=== PATIENT | male | born 1990 | race Caucasian/White ===

== ENCOUNTER 2018-03-17 05:24 | Emergency (ER) | payer BC ==
--- NOTE | 2018-03-17 06:30 | ER ---
Nurse's Notes [facility] Name: Salvador Fuchs Age: 28 yrs Sex: Male : 1990 Arrival Date: 03/17/2018 Time: 05:29 Bed 6 Private MD: Mary Belcher K Diagnosis: Low back pain Presentation: 03/17 05:30 Presenting complaint: Patient states: that since 2300 last night his lower back has fc been trying to "lock" up. Hx of back problems. Transition of care: patient was not received from another setting of care. Onset of symptoms was March 16, 2018 at 23:00. Risk Assessment: Do you want to hurt yourself or someone else? Patient reports no desire to harm self or others. Initial Sepsis Screen: Does the patient meet any 2 criteria? No. Patient's initial sepsis screen is negative. Does the patient have a suspected source of infection? No. Patient's initial sepsis screen is negative. Care prior to arrival: None. 05:30 Method Of Arrival: Ambulatory 05:30 Acuity: KATHLEEN 5 Triage Assessment: 05:46 General: Appears uncomfortable, obese, Behavior is calm, cooperative, appropriate for age. Pain: Complains of pain in low back area Pain currently is 5 out of 10 on a pain scale. Quality of pain is described as aching, throbbing, Pain began 7 hrs ago Is continuous, Aggravated by increased activity, repositioning. EENT: No deficits noted. Neuro: Level of Consciousness is awake, alert, obeys commands, Oriented to person, place, time, situation, Denies paresthesias numbness. Cardiovascular: No deficits noted. Respiratory: No deficits noted. GI: No deficits noted. : No deficits noted. Derm: Skin is pink, warm \\T\\ dry. Musculoskeletal: Circulation, motion, and sensation intact. Capillary refill < 3 seconds, Range of motion: intact in all extremities. Historical: - Allergies: 05:46 Iodine; fc - Home Meds: 05:46 None [Active]; fc - PMHx: 05:46 compound fracture to L1; Back pain; fc - PSHx: 05:46 Cholecystectomy; Appendectomy; fc - Immunization history:: Last tetanus immunization: up to date. - Social history:: Smoking status: Patient uses tobacco products, smokes one pack cigarettes per day. - Ebola Screening: : Patient negative for fever greater than or equal to 101.5 degrees Fahrenheit, and additional compatible Ebola Virus Disease symptoms Patient denies exposure to infectious person Patient denies travel to an Ebola-affected area in the 21 days before illness onset. Screenin:30 Abuse screen: Denies threats or abuse. Nutritional screening: No deficits noted. fc Tuberculosis screening: No symptoms or risk factors identified. Fall Risk None identified. Assessment: 05:55 Reassessment: No changes from previously documented assessment. Patient and/or family fc updated on plan of care and expected duration. Pain level reassessed. Patient is alert, oriented x 3, equal unlabored respirations, skin warm/dry/pink. see triage assessment. Neuro: Level of Consciousness is awake, alert, obeys commands, Oriented to person, place, time, situation, Central Office Maintainer are equal bilaterally Moves all extremities. Full function Gait is steady, Speech is normal, Facial symmetry appears normal, Denies weakness numbness. 06:15 Reassessment: No changes from previously documented assessment. Patient and/or family fc updated on plan of care and expected duration. Pain level reassessed. Patient is alert, oriented x 3, equal unlabored respirations, skin warm/dry/pink. Earline COMMERCIAL FRONT LOAD OPERATOR in to see and examine pt. Vital Signs: 05:30 BP 115 / 60; Pulse 61; Resp 18; Temp 98.6(O); Pulse Ox 99% on R/A; Weight 122.47 kg fc (R); Height 5 ft. 9 in. (175.26 cm) (R); Pain 5/10; 06:30 BP 115 / 62; Pulse 67; Resp 18; Pulse Ox 98% on R/A; ak1 06:38 BP 110 / 66; Pulse 61; Resp 18; Temp 98.6(O); Pulse Ox 98% on R/A; Pain 5/10; fc 05:30 Body Mass Index 39.87 (122.47 kg, 175.26 cm) ED Course: 05:29 Patient arrived in ED. es 05:29 Mary Belcher MD is Private Physician. es 05:30 Arm band placed on Patient placed in an exam room, on a stretcher. 05:30 Patient has correct armband on for positive identification. Bed in low position. Call fc light in reach. 05:30 No provider procedures requiring assistance completed. 05:44 Triage completed. fc 06:16 Earline Hart FNP-C is [facility]. snw 06:17 Germain Bentley MD is Attending Physician. snw 06:29 Mary Belcher MD is Referral Physician. snw 06:40 Patient did not have IV access during this emergency room visit. fc Administered Medications: No medications were administered Outcome: 06:29 Discharge ordered by . snw 06:40 Discharged to home ambulatory, with significant other. fc 06:40 Condition: good 06:40 Discharge instructions given to patient, significant other, Instructed on discharge instructions, follow up and referral plans. no drinking with medication, no driving heavy equipment, medication usage, Demonstrated understanding of instructions, follow-up care, medications, Prescriptions given X 2. 06:40 Patient left the ED. Signatures: Earline Hart FNP-C POPULATION HEALTH COACH-Csnw Anu Magallon Felicia RN RN Cha Higuera RN RN ak1
--- NOTE | 2018-03-17 06:30 | EDPHYS ---
Physician Documentation [facility] Name: Salvador Fuchs Age: 28 yrs Sex: Male : 1990 Arrival Date: 03/17/2018 Time: 05:29 Bed 6 Private MD: Mary Belcher K ED Physician Germain Bentley HPI: 03/17 06:36 This 28 yrs old Male presents to ER via Ambulatory with complaints of Back snw Pain. 06:36 The patient presents with pain that is chronic, with no known mechanism of injury. The snw symptoms are located in the low back. Onset: The symptoms/episode began/occurred this morning. The pain does not radiate. Associated signs and symptoms: Pertinent positives: none. The problem was sustained from unknown cause. Severity of symptoms: At their worst the symptoms were moderate. The patient has experienced similar episodes in the past. It is unknown whether or not the patient has recently seen a physician. states he feels as though his back is 'going to lock up'. Historical: - Allergies: 05:46 Iodine; fc - Home Meds: 05:46 None [Active]; fc - PMHx: 05:46 compound fracture to L1; Back pain; fc - PSHx: 05:46 Cholecystectomy; Appendectomy; fc - Immunization history:: Last tetanus immunization: up to date. - Social history:: Smoking status: Patient uses tobacco products, smokes one pack cigarettes per day. - Ebola Screening: : Patient negative for fever greater than or equal to 101.5 degrees Fahrenheit, and additional compatible Ebola Virus Disease symptoms Patient denies exposure to infectious person Patient denies travel to an Ebola-affected area in the 21 days before illness onset. ROS: 06:35 Constitutional: Negative for fever, chills, and weight loss, Eyes: Negative for injury, snw pain, redness, and discharge, ENT: Negative for injury, pain, and discharge, Neck: Negative for injury, pain, and swelling, Cardiovascular: Negative for chest pain, palpitations, and edema, Respiratory: Negative for shortness of breath, cough, wheezing, and pleuritic chest pain, Abdomen/GI: Negative for abdominal pain, nausea, vomiting, diarrhea, and constipation, : Negative for injury, bleeding, discharge, and swelling, MS/Extremity: Negative for injury and deformity, Skin: Negative for injury, rash, and discoloration, Neuro: Negative for headache, weakness, numbness, tingling, and seizure. 06:35 Back: Positive for pain with movement. Exam: 06:33 Constitutional: This is a well developed, well nourished patient who is awake, alert, snw and in no acute distress. Head/Face: Normocephalic, atraumatic. Eyes: Pupils equal round and reactive to light, extra-ocular motions intact. Lids and lashes normal. Conjunctiva and sclera are non-icteric and not injected. Cornea within normal limits. Periorbital areas with no swelling, redness, or edema. ENT: Nares patent. No nasal discharge, no septal abnormalities noted. Tympanic membranes are normal and external auditory canals are clear. Oropharynx with no redness, swelling, or masses, exudates, or evidence of obstruction, uvula midline. Mucous membranes moist. Neck: Trachea midline, no thyromegaly or masses palpated, and no cervical lymphadenopathy. Supple, full range of motion without nuchal rigidity, or vertebral point tenderness. No Meningismus. Chest/axilla: Normal chest wall appearance and motion. Nontender with no deformity. No lesions are appreciated. Cardiovascular: Regular rate and rhythm with a normal S1 and S2. No gallops, murmurs, or rubs. Normal PMI, no JVD. No pulse deficits. Respiratory: Lungs have equal breath sounds bilaterally, clear to auscultation and percussion. No rales, rhonchi or wheezes noted. No increased work of breathing, no retractions or nasal flaring. Abdomen/GI: Soft, non-tender, with normal bowel sounds. No distension or tympany. No guarding or rebound. No evidence of tenderness throughout. Back: No spinal tenderness. No costovertebral tenderness. Full range of motion. Skin: Warm, dry with normal turgor. Normal color with no rashes, no lesions, and no evidence of cellulitis. Neuro: Awake and alert, GCS 15, oriented to person, place, time, and situation. Cranial nerves II-XII grossly intact. Motor strength 5/5 in all extremities. Sensory grossly intact. Cerebellar exam normal. Normal gait. Psych: Awake, alert, with orientation to person, place and time. Behavior, mood, and affect are within normal limits. 06:33 Musculoskeletal/extremity: Extremities: grossly normal except: noted in the low back area: decreased ROM, pain, ROM: Circulation is intact in all extremities. Sensation intact. 06:33 Neuro: Orientation: is normal, Mentation: is normal, Memory: is normal, Gait: is steady, at a normal pace. Vital Signs: 05:30 BP 115 / 60; Pulse 61; Resp 18; Temp 98.6(O); Pulse Ox 99% on R/A; Weight 122.47 kg fc (R); Height 5 ft. 9 in. (175.26 cm) (R); Pain 5/10; 06:30 BP 115 / 62; Pulse 67; Resp 18; Pulse Ox 98% on R/A; ak1 06:38 BP 110 / 66; Pulse 61; Resp 18; Temp 98.6(O); Pulse Ox 98% on R/A; Pain 5/10; fc 05:30 Body Mass Index 39.87 (122.47 kg, 175.26 cm) fc MDM: 06:17 Patient medically screened. snw 06:35 Data reviewed: vital signs, nurses notes. Data interpreted: Pulse oximetry: on room air snw is 98 %. Interpretation: normal. Counseling: I had a detailed discussion with the patient and/or guardian regarding: the historical points, exam findings, and any diagnostic results supporting the discharge/admit diagnosis, the presence of at least one elevated blood pressure reading (>120/80) during this emergency department visit, the need for outpatient follow up, for definitive care, to return to the emergency department if symptoms worsen or persist or if there are any questions or concerns that arise at home. Administered Medications: No medications were administered Disposition: 06:53 Co-signature as Attending Physician, Germain Bentley MD. rn Disposition: 03/17/18 06:29 Discharged to Home. Impression: Low back pain. - Condition is Stable. - Discharge Instructions: Back Pain, Adult, Chronic Back Pain, Musculoskeletal Pain, Back Injury Prevention, [id number], Back Exercises, Nife-ni-Yizg, Cryotherapy, Heat Therapy. - Prescriptions for methocarbamol 750 mg Oral tablet - take 1 tablet by ORAL route 4 times per day; 40 tablet. Diclofenac Sodium 75 mg Oral Tablet Sustained Release - take 1 tablet by ORAL route 2 times per day; 30 tablet. - Work release form, Medication Reconciliation Form, Thank You Letter, Antibiotic Education, Prescription Opioid Use form. - Follow up: Mary Belcher MD; When: 2 - 3 days; Reason: Recheck today's complaints, Continuance of care, Re-evaluation by your physician. Follow up: Emergency Department; When: As needed; Reason: Worsening of condition. Signatures: Earline Hart, FOOD AND BEVERAGE OUTLETS MANAGER-C FOOD AND BEVERAGE OUTLETS MANAGER-Csnw Ashley Adam RN RN fc Germain Bentley MD MD pattern maker: (The following items were deleted from the chart) 06:40 06:29 03/17/2018 06:29 Discharged to Home. Impression: Low back pain. Condition is fc Stable. Forms are Medication Reconciliation Form, Thank You Letter, Antibiotic Education, Prescription Opioid Use. Follow up: Mary Belcher; When: 2 - 3 days; Reason: Recheck today's complaints, Continuance of care, Re-evaluation by your physician. Follow up: Emergency Department; When: As needed; Reason: Worsening of condition. snw
== END 2018-03-17 06:40 | disposition home or self-care (01) ==
LOC: ER 05:24
DX: M54.5 Low back pain (principal); F17.210 Nicotine dependence, cigarettes, uncomplicated; Z91.048 Other nonmedicinal substance allergy status
CPT/HCPCS: 99282

== ENCOUNTER 2018-04-30 16:25 | Emergency (ER) | payer BC ==
[2018-04-30 17:58] LABS: Urine Bacteria <20 /HPF (NONE SEEN); Urine Culture Reflex Order NOT NEEDED; Urine RBC <5 /HPF (NONE SEEN)
--- NOTE | 2018-04-30 18:05 | RAD REPORT ---
EXAM DESCRIPTION: CT - Stone Protocol - 04/30/2018 5:54 pm CLINICAL HISTORY: Flank pain. FLANK PAIN COMPARISON: No comparisons TECHNIQUE: Axial images were obtained without oral or IV contrast. Lack of contrast limits solid org an and vascular assessment. The [id number] spans the entirety of the system partially obscuring uppermost abdomen and lung bases. Coronal reformatted images were obtained and reviewed. All CT scans are performed using dose optimization technique as appropriate and may include automated exposure control or mA/KV adjustment according to patient size. FINDINGS: The lower lung jones are clear. Imaged portions of the liver and spleen show no suspicious findings on non-contrast imaging. The panc reas and adrenal glands are normal. No pathologic lymphadenopathy in the abdomen or pelvis. No urinary tract stones or obstructive uropathy. No bowel obstruction, free air, free fluid or abscess. The appendix is not identified as a discrete s tructure, however, no secondary findings of appendicitis are identified. An area of an ovoid inflamed fat in right lower quadrant measuring 15 mm is most compatible with mild epiploic appendagitis. No significant bony abnormality. Old L1 anterior wedge deformity. IMPRESSION: No urinary tract stones or obstructive uropathy. Right lower quadrant epiploic appendagitis.
--- NOTE | 2018-04-30 18:13 | ER ---
Nurse's Notes [facility] Name: Salvador Fuchs Age: 28 yrs Sex: Male : 1990 Arrival Date: 04/30/2018 Time: 16:31 Bed 6 Private MD: Mary Belcher K Diagnosis: Lower abdominal pain, unspecified Presentation: 04/30 16:36 Presenting complaint: Patient states: "I'm having pelvic pain, been having it for the aj1 past 2 days." Reports dysuria, urinary frequency. Denies fever. Denies penile discharge. Transition of care: patient was not received from another setting of care. Onset of symptoms was April 28, 2018. Risk Assessment: Do you want to hurt yourself or someone else? Patient reports no desire to harm self or others. Initial Sepsis Screen: Does the patient meet any 2 criteria? No. Patient's initial sepsis screen is negative. Does the patient have a suspected source of infection? Yes: Dysuria/Frequency/Urgency/UTI. Care prior to arrival: None. 16:36 Method Of Arrival: Ambulatory aj 16:36 Acuity: KATHLEEN 4 aj1 Triage Assessment: 16:40 General: Appears in no apparent distress. comfortable, Behavior is calm, cooperative, aj1 appropriate for age. Pain: Complains of pain in suprapubic area Pain currently is 3 out of 10 on a pain scale. Neuro: Level of Consciousness is awake, alert, obeys commands. Cardiovascular: Patient's skin is warm and dry. Respiratory: Airway is patent Respiratory effort is even, unlabored, Respiratory pattern is regular, symmetrical. : Reports burning with urination, urinary frequency, Denies discharge. Historical: - Allergies: 16:40 Iodine; aj1 - Home Meds: 16:40 diclofenac oral oral [Active]; aj1 - PMHx: 16:40 Back pain; compound fracture to L1; aj1 - Immunization history:: Flu vaccine is not up to date. - Social history:: Smoking status: Patient uses tobacco products, smokes one-half pack cigarettes per day. - Ebola Screening: : Patient denies travel to an Ebola-affected area in the 21 days before illness onset. Screenin:35 Abuse screen: Denies threats or abuse. Denies injuries from another. Nutritional sg screening: No deficits noted. Tuberculosis screening: No symptoms or risk factors identified. Never had TB. Fall Risk None identified. Assessment: 17:33 General: Appears in no apparent distress. comfortable, well groomed, well developed, sg well nourished, Behavior is calm, cooperative, appropriate for age. Pain: Complains of pain in right lower quadrant Pain radiates to right inguinal area Quality of pain is described as aching. Neuro: Level of Consciousness is awake, alert, obeys commands, Oriented to person, place, time, situation, Stonecutter Assistant are equal bilaterally Speech is normal, Facial symmetry appears normal, Pupils are PERRLA. Cardiovascular: No deficits noted. Capillary refill is brisk in bilateral Patient's skin is warm and dry. Chest pain is denied. Respiratory: Airway is patent Respiratory effort is even, unlabored, Respiratory pattern is regular, symmetrical. GI: Abdomen is round obese, Bowel sounds present X 4 quads. Reports lower abdominal pain, relieved with urination. : No signs and/or symptoms were reported regarding the genitourinary system. : Denies burning with urination, discharge, incontinence, pain urinary frequency, urgency. EENT: No signs and/or symptoms were reported regarding the EENT system. Derm: Skin is pink, warm \\T\\ dry. Musculoskeletal: No signs and/or symptoms reported regarding the musculoskeletal system. Vital Signs: 16:40 BP 126 / 75; Pulse 72; Resp 16; Temp 98.1; Pulse Ox 98% on R/A; Weight 115.67 kg (R); aj1 Height 5 ft. 10 in. (177.80 cm) (R); Pain 3/10; 16:40 Body Mass Index 36.59 (115.67 kg, 177.80 cm) aj1 ED Course: 16:31 Patient arrived in ED. as 16:39 Triage completed. aj1 16:40 Arm band placed on Patient placed in an exam room. aj1 16:43 Ear[facility] Hart [facility]C [facility]. snw 16:43 Michael Garzon MD is Attending Physician. snw 17:14 Urine collected: clean catch specimen, rafi colored. 3 17:32 Kenneth Ellis, OUMAR is Primary Nurse. sg 17:33 Mary Belcher MD is Private Physician. sg 17:[address] via wheelchair. nj 17:54 CT completed. Patient tolerated procedure well. Patient moved back from CT. nj 17:54 CT Stone Protocol In Process Unspecified. EDMS 18:12 Mary Belcher MD is Referral Physician. snw Administered Medications: 18:21 Drug: TORadol 60 mg Route: IM; Site: right deltoid; sg Outcome: 18:12 Discharge ordered by . snw 18:40 Patient left the ED. sg Signatures: Dispatcher [employer] EDME Re Wilder RN RN aj1 Kenneth Ellis RN RN sg Earline Hart, PRINTED CIRCUIT BOARDS CONTACT PRINTER-C PRINTED CIRCUIT BOARDS CONTACT PRINTER-Csnw Lucie Mendoza Nathan nj Herrera, Ana 3
--- NOTE | 2018-04-30 18:13 | EDPHYS ---
Physician Documentation [facility] Name: Salvador Fuchs Age: 28 yrs Sex: Male : 1990 Arrival Date: 04/30/2018 Time: 16:31 Bed 6 Private MD: Mary Belcher K ED Physician Michael Garzon HPI: 04/30 18:04 This 28 yrs old Male presents to ER via Ambulatory with complaints of snw Abdominal Pain. 18:04 The patient presents with abdominal pain in the lower abdomen, right lower quadrant. snw 18:04 Onset: The symptoms/episode began/occurred gradually, 2 day(s) ago, and became snw persistent. The symptoms do not radiate. Associated signs and symptoms: Pertinent positives: dysuria, nausea. The symptoms are described as crampy, pressure. Severity of pain: At its worst the pain was moderate. The patient has not experienced similar symptoms in the past. It is unknown whether or not the patient has recently seen a physician. hx of bruce. Historical: - Allergies: 16:40 Iodine; aj1 - Home Meds: 16:40 diclofenac oral oral [Active]; aj1 - PMHx: 16:40 Back pain; compound fracture to L1; aj1 - Immunization history:: Flu vaccine is not up to date. - Social history:: Smoking status: Patient uses tobacco products, smokes one-half pack cigarettes per day. - Ebola Screening: : Patient denies travel to an Ebola-affected area in the 21 days before illness onset. ROS: 18:03 Constitutional: Negative for fever, chills, and weight loss, Eyes: Negative for injury, snw pain, redness, and discharge, ENT: Negative for injury, pain, and discharge, Neck: Negative for injury, pain, and swelling, Cardiovascular: Negative for chest pain, palpitations, and edema, Respiratory: Negative for shortness of breath, cough, wheezing, and pleuritic chest pain, Back: Negative for injury and pain, MS/Extremity: Negative for injury and deformity, Skin: Negative for injury, rash, and discoloration, Neuro: Negative for headache, weakness, numbness, tingling, and seizure. 18:03 Abdomen/GI: Positive for abdominal pain, of the right lower quadrant. 18:03 : Positive for urinary symptoms, urinary frequency, pressure sensation. Exam: 18:03 Constitutional: This is a well developed, well nourished patient who is awake, alert, snw and in no acute distress. Head/Face: Normocephalic, atraumatic. Eyes: Pupils equal round and reactive to light, extra-ocular motions intact. Lids and lashes normal. Conjunctiva and sclera are non-icteric and not injected. Cornea within normal limits. Periorbital areas with no swelling, redness, or edema. ENT: Nares patent. No nasal discharge, no septal abnormalities noted. Tympanic membranes are normal and external auditory canals are clear. Oropharynx with no redness, swelling, or masses, exudates, or evidence of obstruction, uvula midline. Mucous membranes moist. Neck: Trachea midline, no thyromegaly or masses palpated, and no cervical lymphadenopathy. Supple, full range of motion without nuchal rigidity, or vertebral point tenderness. No Meningismus. Chest/axilla: Normal chest wall appearance and motion. Nontender with no deformity. No lesions are appreciated. Cardiovascular: Regular rate and rhythm with a normal S1 and S2. No gallops, murmurs, or rubs. Normal PMI, no JVD. No pulse deficits. Respiratory: Lungs have equal breath sounds bilaterally, clear to auscultation and percussion. No rales, rhonchi or wheezes noted. No increased work of breathing, no retractions or nasal flaring. Back: No spinal tenderness. No costovertebral tenderness. Full range of motion. Skin: Warm, dry with normal turgor. Normal color with no rashes, no lesions, and no evidence of cellulitis. MS/ Extremity: Pulses equal, no cyanosis. Neurovascular intact. Full, normal range of motion. Neuro: Awake and alert, GCS 15, oriented to person, place, time, and situation. Cranial nerves II-XII grossly intact. Motor strength 5/5 in all extremities. Sensory grossly intact. Cerebellar exam normal. Normal gait. 18:03 Abdomen/GI: Inspection: abdomen appears normal, Bowel sounds: normal, Palpation: mild abdominal tenderness, moderate abdominal tenderness, in the right lower quadrant. Vital Signs: 16:40 BP 126 / 75; Pulse 72; Resp 16; Temp 98.1; Pulse Ox 98% on R/A; Weight 115.67 kg (R); aj1 Height 5 ft. 10 in. (177.80 cm) (R); Pain 09/28; 16:40 Body Mass Index 36.59 (115.67 kg, 177.80 cm) aj1 MDM: 16:43 Patient medically screened. snw 21:08 Data reviewed: vital signs, nurses notes. Data interpreted: Pulse oximetry: on room air snw is 98 %. Interpretation: normal. Counseling: I had a detailed discussion with the patient and/or guardian regarding: the historical points, exam findings, and any diagnostic results supporting the discharge/admit diagnosis, lab results, radiology results, to return to the emergency department if symptoms worsen or persist or if there are any questions or concerns that arise at home. Special discussion: Based on the history and exam findings, there is no indication for further emergent testing or inpatient evaluation. I discussed with the patient/guardian the need to see the primary care provider for further evaluation of the symptoms. 04/30 16:45 Order name: Urine Culture snw 04/30 16:45 Order name: Urine Microscopic Only; Complete Time: 18:02 snw 04/30 16:45 Order name: Urine Dipstick-Ancillary (obtain specimen); Complete Time: 17:15 snw 04/30 17:40 Order name: CT Stone Protocol; Complete Time: 18:10 snw Administered Medications: 18:21 Drug: TORadol 60 mg Route: IM; Site: right deltoid; sg Disposition: 04/30/18 18:12 Discharged to Home. Impression: Lower abdominal pain, unspecified. - Condition is Stable. - Discharge Instructions: Abdominal Pain, Adult. - Prescriptions for Bentyl 20 mg Oral Tablet - take 1 tablet by ORAL route every 6 hours As needed; 20 tablet. Diclofenac Sodium 75 mg Oral Tablet Sustained Release - take 1 tablet by ORAL route 2 times per day; 30 tablet. - Work release form, Medication Reconciliation Form, Thank You Letter, Antibiotic Education, Prescription Opioid Use form. - Follow up: Mary Belcher MD; When: 2 - 3 days; Reason: Recheck today's complaints, Continuance of care, Re-evaluation by your physician. Follow up: Emergency Department; When: As needed; Reason: Worsening of condition. Addendum: 05/04/2018 00:51 Co-signature as Attending Physician, Michael Garzon MD. g s Signatures: Dispatcher [employer] EDMI eR Wilder, RN RN aj1 Kenneth Ellis RN RN sg Earline Hart, TRASHMAN-C TRASHMAN-Csnw Michael Garzon MD MD gs Corrections: (The following items were deleted from the chart) 04/30 17:37 16:45 GC (Gonorr/Clamydia) Probe+R.LAB.BRZ ordered. [facility] EDMI 18:40 18:12 04/30/2018 18:12 Discharged to Home. Impression: Lower abdominal pain, sg unspecified. Condition is Stable. Forms are Medication Reconciliation Form, Thank You Letter, Antibiotic Education, Prescription Opioid Use. Follow up: Mary Belcher; When: 2 - 3 days; Reason: Recheck today's complaints, Continuance of care, Re-evaluation by your physician. Follow up: Emergency Department; When: As needed; Reason: Worsening of condition. snw
[2018-04-30] MEDS ORDERED: KETOROLAC 30 MG/ML INJ ONE (18:24)
== END 2018-04-30 18:40 | disposition home or self-care (01) ==
LOC: ER 16:25
DX: R10.31 Right lower quadrant pain (principal); F17.210 Nicotine dependence, cigarettes, uncomplicated; Z91.048 Other nonmedicinal substance allergy status
CPT/HCPCS: 74176; 76377; 81015; 87086; 87088; 96372; 99284

== ENCOUNTER 2018-06-26 18:28 | Emergency (ER) | payer BC ==
[2018-06-26] MEDS ORDERED: BENZONATATE 100 MG CAP PO ONE (19:28)
[2018-06-26] MEDS ORDERED: ONDANSETRON 4 MG (ODT) TAB ONE (19:28)
--- NOTE | 2018-06-26 21:07 | EDPHYS ---
Physician Documentation [facility] Name: Salvador Fuchs Age: 28 yrs Sex: Male : 1990 Arrival Date: 06/26/2018 Time: 18:31 Bed 7 Private MD: Mary Belcher K ED Physician Germain Bentley HPI: 06/26 19:15 This 28 yrs old Male presents to ER via Ambulatory with complaints of cp Nausea/Vomiting, Back Pain. 19:15 The patient presents to the emergency department with nausea, that is mild. cp 19:15 The patient or guardian reports cough, that is intermittent, with no sputum. Onset: The cp symptoms/episode began/occurred 3 day(s) ago. 19:15 Associated signs and symptoms: Pertinent positives: nasal congestion, Pertinent cp negatives: chest pain, diarrhea, fever, sore throat. Severity of symptoms: in the emergency department the symptoms are unchanged despite home interventions. Historical: - Allergies: 18:39 Iodine; la1 - Home Meds: 20:30 diclofenac Oral [Active]; tl2 - PMHx: 18:39 Back pain; compound fracture to L1; la1 - Immunization history:: Adult Immunizations up to date. - Social history:: Smoking status: Patient uses tobacco products, smokes one pack cigarettes per day. - Ebola Screening: : No symptoms or risks identified at this time. ROS: 19:15 Constitutional: Negative for body aches, chills, fever, poor PO intake. cp 19:15 Eyes: Negative for injury, pain, redness, and discharge. cp 19:15 ENT: Positive for sinus congestion, Negative for drainage from ear(s), ear pain, sore throat, difficulty swallowing, difficulty handling secretions. 19:15 Respiratory: Positive for cough, Negative for shortness of breath, wheezing. 19:15 Abdomen/GI: Positive for nausea, diarrhea, Negative for abdominal pain, vomiting, constipation, black/tarry stool, rectal bleeding. 19:15 Skin: Negative for cellulitis, rash. 19:15 Neuro: Negative for dizziness, headache, weakness. 19:15 All other systems are negative. Exam: 19:22 Constitutional: The patient appears in no acute distress, alert, awake, non-toxic, well cp developed, well nourished. 19:22 Head/Face: Normocephalic, atraumatic. cp 19:22 Eyes: Periorbital structures: appear normal, Conjunctiva: normal, no exudate, no injection, Sclera: no appreciated abnormality, Lids and lashes: appear normal, bilaterally. 19:22 ENT: External ear(s): are unremarkable, Ear canal(s): are normal, clear, TM's: bulging, is not appreciated, bilaterally, dullness, bilaterally, erythema, is not appreciated, bilaterally, Nose: is normal, Mouth: Lips: moist, Oral mucosa: moist, Posterior pharynx: Airway: no evidence of obstruction, patent, Tonsils: no enlargement, no exudate, swelling, is not appreciated, erythema, that is mild, exudate, is not appreciated. 19:22 Neck: ROM/movement: is normal, is supple, without pain, no range of motions limitations, no meningismus, no nuchal rigidity, Lymph nodes: no appreciated lymphadenopathy. 19:22 Chest/axilla: Inspection: normal, Palpation: is normal, no crepitus, no tenderness. 19:22 Cardiovascular: Rate: tachycardic, Rhythm: regular. 19:22 Respiratory: the patient does not display signs of respiratory distress, Respirations: normal, no use of accessory muscles, no retractions, no splinting, no tachypnea, labored breathing, is not present, Breath sounds: decreased breath sounds, are not appreciated, + upper airway congestion. wheezing: is not appreciated. 19:22 Abdomen/GI: Inspection: abdomen appears normal, Palpation: abdomen is soft and non-tender, in all quadrants. 19:22 Back: pain, that is mild, ROM is normal. 19:22 Skin: cellulitis, is not appreciated, no rash present. Vital Signs: 18:39 BP 123 / 81; Pulse 108; Resp 18; Temp 97.8; Pulse Ox 98% on R/A; Weight 106.59 kg; la1 Height 5 ft. 9 in. (175.26 cm); 20:29 BP 109 / 59; Pulse 75; Resp 18; Temp 98.3(O); Pulse Ox 100% on R/A; tl2 18:39 Body Mass Index 34.70 (106.59 kg, 175.26 cm) la1 MDM: 19:00 Patient medically screened. cp 19:30 Differential diagnosis: bronchitis, flu, URI, pneumonia. cp 21:05 Antibiotic administration: Not indicated, the patient does not have an appreciated cp infiltrate. 21:05 Data reviewed: vital signs, nurses notes, lab test result(s), and as a result, I will cp discharge patient. Counseling: I had a detailed discussion with the patient and/or guardian regarding: the historical points, exam findings, and any diagnostic results supporting the discharge/admit diagnosis, lab results, to return to the emergency department if symptoms worsen or persist or if there are any questions or concerns that arise at home. 06/26 19:15 Order name: Influenza Screen (a \T\ B); Complete Time: 20:22 cp 06/26 19:15 Order name: Strep; Complete Time: 20:22 cp 06/26 20:14 Order name: Throat Culture EDMT 06/26 20:22 Order name: PO challenge; Complete Time: 20:31 cp Administered Medications: 19:29 Drug: Tessalon Perle 200 mg Route: PO; tl2 20:31 Follow up: Response: No adverse reaction; Marked relief of symptoms tl2 19:29 Drug: Zofran 4 mg Route: PO; tl2 20:33 Follow up: Response: No adverse reaction; Marked relief of symptoms tl2 Disposition: 06/26/18 21:06 Discharged to Home. Impression: Acute upper respiratory infection, unspecified. - Condition is Stable. - Discharge Instructions: Upper Respiratory Infection, Adult. - Prescriptions for Ibuprofen 800 mg Oral Tablet - take 1 tablet by ORAL route every 8 hours As needed take with food; 30 tablet. Zofran 4 mg Oral Tablet - take 1 tablet by ORAL route every 12 hours As needed; 20 tablet. Tessalon Perles 100 mg Oral Capsule - take 2 capsule by ORAL route every 8 hours As needed; 30 capsule. - Medication Reconciliation Form, Thank You Letter, Antibiotic Education, Prescription Opioid Use, Work release form form. - Follow up: Private Physician; When: 2 - 3 days; Reason: if symptoms continue. - Problem is new. - Symptoms have improved. Addendum: 06/30/2018 07:02 Co-signature as Attending Physician, Germain Bentley MD. r n Signatures: Dispatcher [employer] [facility] Germain Bentley MD MD rn Attema, Lee, RN RN la1 Page, Ethan, PA PA cp Miguel, Adrienne, RN RN tl2 Corrections: (The following items were deleted from the chart) 06/26 21:19 21:06 06/26/2018 21:06 Discharged to Home. Impression: Acute upper respiratory tl2 infection, unspecified. Condition is Stable. Forms are Medication Reconciliation Form, Thank You Letter, Antibiotic Education, Prescription Opioid Use. Follow up: Private Physician; When: 2 - 3 days; Reason: if symptoms continue. Problem is new. Symptoms have improved. cp
--- NOTE | 2018-06-26 21:07 | ER ---
Nurse's Notes [facility] Name: Savlador Fuchs Age: 28 yrs Sex: Male : 1990 Arrival Date: 06/26/2018 Time: 18:31 Bed 7 Private MD: Mary Belcher K Diagnosis: Acute upper respiratory infection, unspecified Presentation: 06/26 18:38 Presenting complaint: Patient states: I have been coughing for the last 3 days, vomited la1 once, had diarrhea once. Transition of care: patient was not received from another setting of care. Onset of symptoms was June 26, 2018. Risk Assessment: Do you want to hurt yourself or someone else? Patient reports no desire to harm self or others. Initial Sepsis Screen: Does the patient meet any 2 criteria? No. Patient's initial sepsis screen is negative. Does the patient have a suspected source of infection? No. Patient's initial sepsis screen is negative. Care prior to arrival: None. 18:38 Method Of Arrival: Ambulatory la1 18:38 Acuity: KATHLEEN 3 la1 Historical: - Allergies: 18:39 Iodine; la1 - Home Meds: 20:30 diclofenac Oral [Active]; tl2 - PMHx: 18:39 Back pain; compound fracture to L1; la1 - Immunization history:: Adult Immunizations up to date. - Social history:: Smoking status: Patient uses tobacco products, smokes one pack cigarettes per day. - Ebola Screening: : No symptoms or risks identified at this time. Screenin:15 Abuse screen: Denies threats or abuse. Nutritional screening: No deficits noted. tl2 Tuberculosis screening: No symptoms or risk factors identified. Fall Risk None identified. Assessment: 19:15 General: Appears in no apparent distress. uncomfortable, Behavior is calm, cooperative, tl2 appropriate for age. Pain: Complains of pain in back Pain does not radiate. Neuro: Level of Consciousness is awake, alert, obeys commands, Oriented to person, place, time, situation. Cardiovascular: Denies chest pain. Respiratory: Reports cough that is hacking, persistent Airway is patent Respiratory effort is even, unlabored, Respiratory pattern is regular, symmetrical. GI: Abdomen is non-distended, Reports diarrhea, nausea, vomiting. : No signs and/or symptoms were reported regarding the genitourinary system. Derm: Skin is pale. 20:30 Reassessment: Patient appears in no apparent distress at this time. Patient and/or tl2 family updated on plan of care and expected duration. Pain level reassessed. Patient is alert, oriented x 3, equal unlabored respirations, skin warm/dry/pink. Pt was able to drink water without any nausea or vomiting. 21:18 Reassessment: Patient appears in no apparent distress at this time. Patient and/or tl2 family updated on plan of care and expected duration. Pain level reassessed. Patient is alert, oriented x 3, equal unlabored respirations, skin warm/dry/pink. Pt verbalized understanding of discharge instructions, need for follow up and prescription usage. Vital Signs: 18:39 BP 123 / 81; Pulse 108; Resp 18; Temp 97.8; Pulse Ox 98% on R/A; Weight 106.59 kg; la1 Height 5 ft. 9 in. (175.26 cm); 20:29 BP 109 / 59; Pulse 75; Resp 18; Temp 98.3(O); Pulse Ox 100% on R/A; tl2 18:39 Body Mass Index 34.70 (106.59 kg, 175.26 cm) la1 ED Course: 18:31 Patient arrived in ED. sb2 18:31 Mary Belcher MD is Private Physician. sb2 18:39 Triage completed. la1 18:40 Arm band placed on right wrist. la1 19:00 Ethan Anne PA is PHCP. cp 19:00 Germain Bentley MD is Attending Physician. cp 19:15 Patient has correct armband on for positive identification. Placed in gown. Bed in low tl2 position. Call light in reach. Side rails up X 1. 19:29 Strep Sent. tl2 19:29 Influenza Screen (a \T\ B) Sent. tl2 19:52 Adrienne Miguel RN is Primary Nurse. tl2 21:18 No provider procedures requiring assistance completed. Patient did not have IV access tl2 during this emergency room visit. Administered Medications: 19:29 Drug: Tessalon Perle 200 mg Route: PO; tl2 20:31 Follow up: Response: No adverse reaction; Marked relief of symptoms tl2 19:29 Drug: Zofran 4 mg Route: PO; tl2 20:33 Follow up: Response: No adverse reaction; Marked relief of symptoms tl2 Outcome: 21:06 Discharge ordered by . kendrick 21:18 Discharged to home ambulatory, with family. tl2 21:18 Condition: stable 21:18 Discharge instructions given to patient, Instructed on discharge instructions, follow up and referral plans. medication usage, Demonstrated understanding of instructions, follow-up care, medications, Prescriptions given X 3. 21:19 Patient left the ED. tl2 Signatures: Erick Hart RN RN la1 Ethan Anne PA PA cp Knox, Taylor, RN RN tl2 Fatemeh Millan sb2
== END 2018-06-26 21:19 | disposition home or self-care (01) ==
LOC: ER 18:28
DX: J06.9 Acute upper respiratory infection, unspecified (principal); F17.210 Nicotine dependence, cigarettes, uncomplicated; Z91.048 Other nonmedicinal substance allergy status
CPT/HCPCS: 87070; 87081; 87804; 99283

== ENCOUNTER 2019-02-09 14:08 | Emergency (ER) | payer BC ==
--- NOTE | 2019-02-09 16:29 | ER ---
Nurse's Notes [facility] Name: Salvador Fuchs Age: 28 yrs Sex: Male : 1990 Arrival Date: 02/09/2019 Time: 14:09 Bed 25 Private MD: Diagnosis: Acute upper respiratory infection, unspecified;Malaise and fatigue Presentation: 02/09 14:33 Presenting complaint: Patient states: nausea, vomiting, dizziness, body aches, chills aa5 that began last night. Pt reports cough, pt states "my throat hurts when I swallow and it feels dry and scratchy". Transition of care: patient was not received from another setting of care. Onset of symptoms was January 2019. Risk Assessment: Do you want to hurt yourself or someone else? Patient reports no desire to harm self or others. Initial Sepsis Screen: Does the patient meet any 2 criteria? No. Patient's initial sepsis screen is negative. Does the patient have a suspected source of infection? No. Patient's initial sepsis screen is negative. Care prior to arrival: None. 14:33 Acuity: KATHLEEN 4 aa5 14:33 Method Of Arrival: Ambulatory aa5 Historical: - Allergies: 14:34 seafood; aa5 14:34 SHELLFISH; aa5 - PMHx: 14:34 Back pain; compound fracture to L1; aa5 - Immunization history:: Flu vaccine is not up to date. - Social history:: Smoking status: Patient uses tobacco products, smokes one-half pack cigarettes per day. - Ebola Screening: : No symptoms or risks identified at this time. - Family history:: not pertinent. Screenin:35 Abuse screen: Denies threats or abuse. Denies injuries from another. Nutritional aj1 screening: No deficits noted. Tuberculosis screening: No symptoms or risk factors identified. Fall Risk None identified. Assessment: 16:35 General: Appears in no apparent distress. comfortable, Behavior is calm, cooperative, aj1 appropriate for age. Pain: Complains of pain in left aspect of posterior pharynx and right aspect of posterior pharynx. Neuro: Level of Consciousness is awake, alert, obeys commands, Oriented to person, place, time, situation. Cardiovascular: Patient's skin is warm and dry. Respiratory: Reports cough that is persistent Airway is patent Respiratory effort is even, unlabored, Respiratory pattern is regular, symmetrical. GI: Reports nausea, vomiting. : No signs and/or symptoms were reported regarding the genitourinary system. EENT: Reports sore throat. Derm: No signs and/or symptoms reported regarding the dermatologic system. Skin is pink, warm \\T\\ dry. normal. Musculoskeletal: No signs and/or symptoms reported regarding the musculoskeletal system. Circulation, motion, and sensation intact. 16:37 Reassessment: Patient state that he has been drinking apple juice without vomiting aj1 while he was waiting. Vital Signs: 14:35 BP 102 / 58; Pulse 89; Resp 18 S; Temp 99.1(TE); Pulse Ox 97% on R/A; Weight 124.74 kg aa5 (R); Height 5 ft. 10 in. (177.80 cm) (R); Pain 10/10; 14:35 Body Mass Index 39.46 (124.74 kg, 177.80 cm) aa5 ED Course: 14:09 Patient arrived in ED. as 14:33 Arm band placed on. aa5 14:34 Triage completed. aa5 16:04 Ethan Trent MD is Attending Physician. [facility] 16:28 Re Wilder, RN is Primary Nurse. aj1 16:35 Patient has correct armband on for positive identification. Bed in low position. Call aj1 light in reach. Side rails up X 1. 16:35 No provider procedures requiring assistance completed. Patient did not have IV access aj1 during this emergency room visit. Administered Medications: 16:34 Drug: Zithromax 500 mg Route: PO; aj1 16:37 Follow up: Response: No adverse reaction aj1 16:34 Drug: Tamiflu 75 mg Route: PO; aj1 16:37 Follow up: Response: No adverse reaction aj1 Outcome: 16:28 Discharge ordered by . [facility] 16:44 Discharged to home ambulatory. aj1 16:44 Condition: good 16:44 Discharge instructions given to patient, Instructed on discharge instructions, follow up and referral plans. medication usage, Demonstrated understanding of instructions, follow-up care, medications, Prescriptions given X 2. 16:44 Patient left the ED. aj1 Signatures: Re Wilder, RN RN aj1 Ethan Trent MD MD cha Martinez, Amelia as Calderon, Audri RN RN aa5 Corrections: (The following items were deleted from the chart) 14:36 14:35 BP 102 / 58; Pulse 89bpm; Resp 18bpm; Spontaneous; Pulse Ox 97% RA; Temp 99.1F aa5 Temporal; aa5
--- NOTE | 2019-02-09 16:29 | EDPHYS ---
Physician Documentation [facility] Name: Salvador Fuchs Age: 28 yrs Sex: Male : 1990 Arrival Date: 02/09/2019 Time: 14:09 Bed 25 Private MD: ED Physician Ethan Trent HPI: 02/09 16:24 This 28 yrs old Male presents to ER via Ambulatory with complaints of Flu ely Symptoms. 16:24 The patient presents with redness. Onset: The symptoms/episode began/occurred 2 day(s) ely ago. Modifying factors: The symptoms are alleviated by nothing, the symptoms are aggravated by nothing. The patient or guardian reports cough, that is intermittent. Associated signs and symptoms: Pertinent positives: chills, pain. Severity of symptoms: At their worst the symptoms were mild in the emergency department the symptoms are unchanged. Historical: - Allergies: 14:34 seafood; aa5 14:34 SHELLFISH; aa5 - PMHx: 14:34 Back pain; compound fracture to L1; aa5 - Immunization history:: Flu vaccine is not up to date. - Social history:: Smoking status: Patient uses tobacco products, smokes one-half pack cigarettes per day. - Ebola Screening: : No symptoms or risks identified at this time. - Family history:: not pertinent. ROS: 16:24 Constitutional: Negative for fever, chills, and weight loss, Eyes: Negative for injury, ely pain, redness, and discharge, ENT: Negative for injury, pain, and discharge, Neck: Negative for injury, pain, and swelling, Cardiovascular: Negative for chest pain, palpitations, and edema, Respiratory: Negative for shortness of breath, cough, wheezing, and pleuritic chest pain, Abdomen/GI: Negative for abdominal pain, nausea, vomiting, diarrhea, and constipation, Back: Negative for injury and pain, : Negative for injury, bleeding, discharge, and swelling, MS/Extremity: Negative for injury and deformity, Skin: Negative for injury, rash, and discoloration, Neuro: Negative for headache, weakness, numbness, tingling, and seizure, Psych: Negative for depression, anxiety, suicide ideation, homicidal ideation, and hallucinations, Hematologic/Lymphatic: Negative for swollen nodes, abnormal bleeding, and unusual bruising. Exam: 16:24 Constitutional: This is a well developed, well nourished patient who is awake, alert, ely and in no acute distress. Head/Face: Normocephalic, atraumatic. Eyes: Pupils equal round and reactive to light, extra-ocular motions intact. Lids and lashes normal. Conjunctiva and sclera are non-icteric and not injected. Cornea within normal limits. Periorbital areas with no swelling, redness, or edema. ENT: Nares patent. No nasal discharge, no septal abnormalities noted. Tympanic membranes are normal and external auditory canals are clear. Oropharynx with no redness, swelling, or masses, exudates, or evidence of obstruction, uvula midline. Mucous membranes moist. Neck: Trachea midline, no thyromegaly or masses palpated, and no cervical lymphadenopathy. Supple, full range of motion without nuchal rigidity, or vertebral point tenderness. No Meningismus. Chest/axilla: Normal chest wall appearance and motion. Nontender with no deformity. No lesions are appreciated. Cardiovascular: Regular rate and rhythm with a normal S1 and S2. No gallops, murmurs, or rubs. Normal PMI, no JVD. No pulse deficits. Respiratory: Lungs have equal breath sounds bilaterally, clear to auscultation and percussion. No rales, rhonchi or wheezes noted. No increased work of breathing, no retractions or nasal flaring. Abdomen/GI: Soft, non-tender, with normal bowel sounds. No distension or tympany. No guarding or rebound. No evidence of tenderness throughout. Back: No spinal tenderness. No costovertebral tenderness. Full range of motion. Male : Normal genitalia with no discharge or lesions. Skin: Warm, dry with normal turgor. Normal color with no rashes, no lesions, and no evidence of cellulitis. MS/ Extremity: Pulses equal, no cyanosis. Neurovascular intact. Full, normal range of motion. Neuro: Awake and alert, GCS 15, oriented to person, place, time, and situation. Cranial nerves II-XII grossly intact. Motor strength 5/5 in all extremities. Sensory grossly intact. Cerebellar exam normal. Normal gait. Psych: Awake, alert, with orientation to person, place and time. Behavior, mood, and affect are within normal limits. Vital Signs: 14:35 BP 102 / 58; Pulse 89; Resp 18 S; Temp 99.1(TE); Pulse Ox 97% on R/A; Weight 124.74 kg aa5 (R); Height 5 ft. 10 in. (177.80 cm) (R); Pain 10/10; 14:35 Body Mass Index 39.46 (124.74 kg, 177.80 cm) aa5 MDM: 16:04 Patient medically screened. [facility] [place] 16:26 Data reviewed: vital signs, nurses notes. [facility] [place] 02/09 16:23 Order name: PO challenge; Complete Time: 16:34 [facility] [place] Administered Medications: 16:34 Drug: Zithromax 500 mg Route: PO; aj1 16:37 Follow up: Response: No adverse reaction [facility] 16:34 Drug: Tamiflu 75 mg Route: PO; [facility] 16:37 Follow up: Response: No adverse reaction [facility] Disposition: 02/09/19 16:28 Discharged to Home. Impression: Acute upper respiratory infection, unspecified, Malaise and fatigue. - Condition is Stable. - Discharge Instructions: Upper Respiratory Infection, Adult, Weakness, Cool Mist Vaporizer, Weakness, [id number], Cough, Adult. - Prescriptions for Zithromax Z- Colton 250 mg Oral Tablet - take 1 tablet by ORAL route as directed for 5 days Day 1 - take two (2) tablets one time. Day 2, 3, 4 , 5 take one (1) tablet once daily.; 6 tablet. Tamiflu 75 mg Oral Capsule - take 1 tablet by ORAL route every 12 hours for 5 days; 10 tablet. - Medication Reconciliation Form, Thank You Letter, Antibiotic Education, Prescription Opioid Use form. - Follow up: Private Physician; When: 2 - 3 days; Reason: Recheck today's complaints, Continuance of care, Re-evaluation by your physician. - Problem is new. - Symptoms have improved. Signatures: Re Wilder RN RN aj1 Ethan Trent MD MD cha Calderon, Audri RN RN aa5 Corrections: (The following items were deleted from the chart) 16:44 16:28 02/09/2019 16:28 Discharged to Home. Impression: Acute upper respiratory aj1 infection, unspecified; Malaise and fatigue. Condition is Stable. Discharge Instructions: Upper Respiratory Infection, Adult, Weakness, Cool Mist Vaporizer, Weakness, Uxmy-mw-Nysi, Cough, Adult. Prescriptions for Zithromax Z-Colton 250 mg Oral Tablet - take 1 tablet by ORAL route as directed for 5 days Day 1 - take two (2) tablets one time. Day 2, 3, 4 , 5 take one (1) tablet once daily.; 6 tablet, Tamiflu 75 mg Oral Capsule - take 1 tablet by ORAL route every 12 hours for 5 days; 10 tablet. and Forms are Medication Reconciliation Form, Thank You Letter, Antibiotic Education, Prescription Opioid Use. Follow up: Private Physician; When: 2 - 3 days; Reason: Recheck today's complaints, Continuance of care, Re-evaluation by your physician. Problem is new. Symptoms have improved. ely
[2019-02-09] MEDS ORDERED: OSELTAMIVIR 75 MG CAP ONE (16:47)
[2019-02-09] MEDS ORDERED: AZITHROMYCIN 250 MG TAB ONE (16:47)
== END 2019-02-09 16:44 | disposition home or self-care (01) ==
LOC: ER 14:08
DX: J06.9 Acute upper respiratory infection, unspecified (principal); R53.81 Other malaise; Z91.013 Allergy to seafood; F17.210 Nicotine dependence, cigarettes, uncomplicated
CPT/HCPCS: 99283

== ENCOUNTER 2020-08-30 10:03 | Emergency (ER) | payer BC, SELFPAY ==
[2020-08-30] MEDS ORDERED: HYDROCODONE/CHLORPHEN 5 ML/OSYR ONE (10:57)
--- NOTE | 2020-08-30 12:05 | RAD REPORT ---
EXAM DESCRIPTION: Kobi Single View08/30/2020 11:57 am CLINICAL HISTORY: Cough COMPARISON: 2017 FINDINGS: The lungs appear clear of acute infiltrate. The heart is normal size IMPRESSION: No acute abnormalities displayed
[2020-08-30 12:42] LABS: SARS-COV-2 RT PCR NEGATIVE (NEGATIVE)
--- NOTE | 2020-08-30 12:57 | EDPHYS ---
Physician Documentation [facility] Name: Salvador Fuchs Age: 30 yrs Sex: Male : 1990 Arrival Date: 08/30/2020 Time: 10:06 Bed 19 Private MD: ED Physician Ethan Trent HPI: 08/30 10:37 This 30 yrs old Male presents to ER via Ambulatory with complaints of Cough, pm1 Congestion, Body Aches. 10:37 The patient or guardian reports cough. pm1 10:37 Onset: The symptoms/episode began/occurred 2 week(s) ago. Severity of symptoms: in the pm1 emergency department the symptoms are actually worse, since yesterday. Modifying factors: The symptoms are alleviated by nothing, the symptoms are aggravated by nothing. Associated signs and symptoms: Pertinent positives: chest pain, with cough, sore throat, Chills, body aches, Pertinent negatives: fever. The patient has not experienced similar symptoms in the past. The patient has not recently seen a physician. Historical: - Allergies: 10:17 SEAFOOD; hb 10:17 SHELLFISH; hb - Home Meds: 10:19 Zoloft Oral [Active]; Buspirone Oral [Active]; hb - PMHx: 10:17 Back pain; compound fracture to L1; hb - PSHx: 10:17 Appendectomy; Cholecystectomy; hb - Immunization history:: Adult Immunizations up to date. - Social history:: Smoking status: Patient reports the use of cigarette tobacco products, smokes one-half pack cigarettes per day. ROS: 10:37 Eyes: Negative for injury, pain, redness, and discharge. pm1 10:37 Cardiovascular: Negative for chest pain, palpitations, and edema. 10:37 Back: Negative for injury and pain. 10:37 MS/Extremity: Negative for injury and deformity, Skin: Negative for injury, rash, and discoloration, Neuro: Negative for headache, weakness, numbness, tingling, and seizure. 10:37 Constitutional: Positive for body aches, Negative for fever, poor PO intake. 10:37 ENT: Positive for sore throat, Negative for ear pain. 10:37 Respiratory: Positive for cough, shortness of breath, Negative for sputum production, wheezing. 10:37 Abdomen/GI: Positive for vomiting, yesterday, none today, Negative for abdominal pain, diarrhea, constipation. Exam: 10:37 Constitutional: This is a well developed, well nourished patient who is awake, alert, pm1 and in no acute distress. Head/Face: Normocephalic, atraumatic. 10:37 Back: No spinal tenderness. No costovertebral tenderness. Full range of motion. Skin: Warm, dry with normal turgor. Normal color with no rashes, no lesions, and no evidence of cellulitis. MS/ Extremity: Pulses equal, no cyanosis. Neurovascular intact. Full, normal range of motion. 10:37 ENT: External ear(s): are unremarkable, Ear canal(s): are normal, TM's: are normal, Posterior pharynx: is normal, airway is patent, no erythema, no exudate, no peritonsilar mass, no pooling of secretions, no swelling. 10:37 Cardiovascular: Exam negative for acute changes, Rate: normal, Rhythm: regular, Pulses: no pulse deficits are appreciated, Edema: is not appreciated. 10:37 Respiratory: Exam negative for acute changes, respiratory distress, shortness of breath. 10:37 Neuro: Exam negative for acute changes, Orientation: is normal, Mentation: is normal, Motor: is normal, moves all fours. Vital Signs: 10:14 BP 144 / 73; Pulse 59; Resp 16; Temp 97; Pulse Ox 100% on R/A; Weight 117.93 kg; Height hb 5 ft. 9 in. (175.26 cm); Pain 4/10; 10:14 Body Mass Index 38.39 (117.93 kg, 175.26 cm) hb MDM: 10:24 Patient medically screened. pm1 12:55 Data reviewed: vital signs. Data interpreted: Pulse oximetry: on room air is 100 %. pm1 Interpretation: normal. Counseling: I had a detailed discussion with the patient and/or guardian regarding: the historical points, exam findings, and any diagnostic results supporting the discharge/admit diagnosis, lab results, radiology results, the need for outpatient follow up, to return to the emergency department if symptoms worsen or persist or if there are any questions or concerns that arise at home. 08/30 10:37 Order name: Flu pm1 08/30 10:37 Order name: Strep; Complete Time: 12:11 pm1 08/30 11:34 Order name: Chest Single View XRAY; Complete Time: 12:11 pm1 08/30 12:07 Order name: Throat Culture EDNY 08/30 12:42 Order name: COVID-19/FLU A+B; Complete Time: 12:55 [facility] 08/30 10:37 Order name: Droplet/Contact Precautions; Complete Time: 10:38 pm1 08/30 10:37 Order name: Labs collected and sent; Complete Time: 10:38 pm1 08/30 10:37 Order name: O2 Per Protocol; Complete Time: 10:38 pm1 Administered Medications: 10:41 Drug: Tussionex Pennkinetic ER 5 ml Route: PO; ll1 13:44 Follow up: Response: No adverse reaction ph Disposition: 08/31 07:52 Co-signature as Attending Physician, Ethan Trent MD I agree with the assessment and ely plan of care. Disposition: 08/30/20 12:56 Discharged to Home. Impression: Acute upper respiratory infection, unspecified. - Condition is Stable. - Discharge Instructions: Antibiotic Resistance, Upper Respiratory Infection, Adult. - Prescriptions for Tessalon Perles 100 mg Oral Capsule - take 1 capsule by ORAL route every 8 hours As needed; 15 capsule. - Medication Reconciliation Form, Thank You Letter, Antibiotic Education, Prescription Opioid Use form. - Follow up: Emergency Department; When: As needed; Reason: Worsening of condition. Follow up: Private Physician; When: 2 - 3 days; Reason: Recheck today's complaints, Continuance of care, Re-evaluation by your physician. - Problem is new. - Symptoms have improved. Signatures: Dispatcher [employer] [facility] Ethan Trent MD MD cha Marinas, Patrick, ELEVATOR ADJUSTER ELEVATOR ADJUSTER pm1 Jes Thakur, RN RN Karina Pastrana, RN RN vg1 Natasha Jaffe RN RN ll1 Jen Giordano RN ph Corrections: (The following items were deleted from the chart) 08/30 11:42 10:38 CORONAVIRUS+ ordered. [facility] 13:43 12:56 08/30/2020 12:56 Discharged to Home. Impression: Acute upper respiratory vg1 infection, unspecified. Condition is Stable. Forms are Medication Reconciliation Form, Thank You Letter, Antibiotic Education, Prescription Opioid Use. Follow up: Emergency Department; When: As needed; Reason: Worsening of condition. Follow up: Private Physician; When: 2 - 3 days; Reason: Recheck today's complaints, Continuance of care, Re-evaluation by your physician. Problem is new. Symptoms have improved. pm1
--- NOTE | 2020-08-30 12:57 | ER ---
Nurse's Notes [facility] Name: Salvador Fuchs Age: 30 yrs Sex: Male : 1990 Arrival Date: 08/30/2020 Time: 10:06 Bed 19 Private MD: Diagnosis: Acute upper respiratory infection, unspecified Presentation: 08/30 10:14 Chief complaint: Cough, nausea, headache, body aches, and chills x 2 weeks. Vomit x 2. hb Coronavirus screen: Client presents with at least one sign or symptom that may indicate coronavirus-19. Standard/surgical mask placed on the client. Provider contacted for isolation considerations. Ebola Screen: No symptoms or risks identified at this time. Initial Sepsis Screen: Does the patient meet any 2 criteria? No. Patient's initial sepsis screen is negative. Does the patient have a suspected source of infection? No. Patient's initial sepsis screen is negative. Risk Assessment: Do you want to hurt yourself or someone else? Patient reports no desire to harm self or others. Onset of symptoms was July 2020. 10:14 Method Of Arrival: Ambulatory hb 10:14 Acuity: KATHLEEN 3 hb Historical: - Allergies: 10:17 SEAFOOD; hb 10:17 SHELLFISH; hb - Home Meds: 10:19 Zoloft Oral [Active]; Buspirone Oral [Active]; hb - PMHx: 10:17 Back pain; compound fracture to L1; hb - PSHx: 10:17 Appendectomy; Cholecystectomy; hb - Immunization history:: Adult Immunizations up to date. - Social history:: Smoking status: Patient reports the use of cigarette tobacco products, smokes one-half pack cigarettes per day. Screenin:52 Abuse screen: Denies threats or abuse. Nutritional screening: No deficits noted. ll1 Tuberculosis screening: No symptoms or risk factors identified. Fall Risk Total Hester Fall Scale indicates No Risk (0-24 pts). Assessment: 10:30 General: Appears in no apparent distress. Behavior is calm, cooperative, appropriate ll1 for age. Pain: Denies pain. Neuro: No deficits noted. Cardiovascular: No deficits noted. Cardiovascular: Capillary refill < 3 seconds Clubbing of nail beds is absent JVD Patient's skin is warm and dry. Respiratory: Reports cough that is Airway is patent Trachea midline Respiratory effort is even, unlabored, Respiratory pattern is regular, symmetrical, Breath sounds are clear bilaterally. the patient has mild shortness of breath. GI: Abdomen is flat, Bowel sounds present X 4 quads. Reports nausea, vomiting. Musculoskeletal: Circulation, motion, and sensation intact. Capillary refill < 3 seconds, Range of motion: intact in all extremities, Reports body aches. 12:00 Reassessment: Patient appears in no apparent distress at this time. Patient and/or ph family updated on plan of care and expected duration. Pain level reassessed. Patient is alert, oriented x 3, equal unlabored respirations, skin warm/dry/pink. 13:44 Reassessment: Patient appears in no apparent distress at this time. Patient and/or ph family updated on plan of care and expected duration. Pain level reassessed. Patient is alert, oriented x 3, equal unlabored respirations, skin warm/dry/pink. Vital Signs: 10:14 BP 144 / 73; Pulse 59; Resp 16; Temp 97; Pulse Ox 100% on R/A; Weight 117.93 kg; Height hb 5 ft. 9 in. (175.26 cm); Pain 4/10; 10:14 Body Mass Index 38.39 (117.93 kg, 175.26 cm) hb ED Course: 10:06 Patient arrived in ED. ds1 10:16 Triage completed. hb 10:19 Arm band placed on. hb 10:20 Natasha Jaffe, OUMAR is Primary Nurse. ll1 10:22 Otis Montelongo, CRISTHIAN is PHCP. pm1 10:22 Ethan Trent MD is Attending Physician. pm1 11:52 Patient has correct armband on for positive identification. Bed in low position. Call ll1 light in reach. Side rails up X 1. Cardiac monitoring not applicable on this patient. 12:01 Chest Single View XRAY In Process Unspecified. EDMS 13:43 No provider procedures requiring assistance completed. Patient did not have IV access ph during this emergency room visit. Administered Medications: 10:41 Drug: Tussionex Pennkinetic ER 5 ml Route: PO; ll1 13:44 Follow up: Response: No adverse reaction ph Outcome: 12:56 Discharge ordered by MD. pm1 13:43 Patient left the ED. vg1 13:43 Discharged to home ambulatory. ph 13:43 Condition: good 13:43 Discharge instructions given to patient, Instructed on discharge instructions, follow up and referral plans. medication usage, Demonstrated understanding of instructions, follow-up care, medications, Prescriptions given X 1. Signatures: Dispatcher [employer] [facility] Fabiana Augustine ds1 Jen Giordano, RN RN Otis Montelongo, CRISTHIAN MINE ENGINEERING SUPERVISOR pm1 Jes Thakur, OUMAR RN Karina Lee RN RN vg1 Natasha Jaffe RN RN ll1
[2020-08-30 13:49] VITALS: BP 144/73; TEMP 97; O2SAT 100
== END 2020-08-30 13:43 | disposition home or self-care (01) ==
LOC: ER 10:03
DX: J06.9 Acute upper respiratory infection, unspecified (principal); F17.210 Nicotine dependence, cigarettes, uncomplicated; Z20.822 Contact with and (suspected) exposure to COVID-19; Z91.013 Allergy to seafood
CPT/HCPCS: 0240U; 71045; 87070; 87081; 99283

== ENCOUNTER 2020-11-30 12:44 | Emergency (ER) | payer SELFPAY ==
[2020-11-30] MEDS ORDERED: KETOROLAC 30 MG/ML INJ ONE (15:08)
[2020-11-30] MEDS ORDERED: HYDROCODONE/APAP 10/325 TAB ONE (15:08)
--- NOTE | 2020-11-30 15:11 | ER ---
Nurse's Notes [facility] Name: Salvador Fuchs Age: 30 yrs Sex: Male : 1990 Arrival Date: 11/30/2020 Time: 12:47 Bed 28 Private MD: Diagnosis: Radiculopathy, lumbar region;Low back pain Presentation: 11/30 13:19 Chief complaint: Low back pain that radiates to right leg. Hx of compound fracture of hb L1 3 years ago, reports pain is chronic but worse today. Denies new injury. Coronavirus screen: At this time, the client does not indicate any symptoms associated with coronavirus-19. Ebola Screen: No symptoms or risks identified at this time. Initial Sepsis Screen: Does the patient meet any 2 criteria? No. Patient's initial sepsis screen is negative. Does the patient have a suspected source of infection? No. Patient's initial sepsis screen is negative. Risk Assessment: Do you want to hurt yourself or someone else? Patient reports no desire to harm self or others. Onset of symptoms was November 30, 2020. 13:19 Method Of Arrival: Ambulatory hb 13:19 Acuity: KATHLEEN 4 hb Historical: - Allergies: 13:22 SEAFOOD; hb 13:22 SHELLFISH; hb - Immunization history:: Adult Immunizations up to date. - Social history:: Smoking status: unknown. Screenin:17 Abuse screen: Denies threats or abuse. Denies injuries from another. Nutritional zb screening: No deficits noted. Tuberculosis screening: No symptoms or risk factors identified. Fall Risk None identified. Assessment: 14:15 General: Appears in no apparent distress. uncomfortable, Behavior is calm, cooperative, zb appropriate for age. Pain: Complains of pain in low back area Pain radiates to right leg Pain currently is 5 out of 10 on a pain scale. at worst was 10 out of 10 on a pain scale. Quality of pain is described as aching, dull, sharp, gnawing, Pain began 1 day ago. Is continuous, Aggravated by increased activity, repositioning, weight bearing. Neuro: Level of Consciousness is awake, alert, obeys commands, Oriented to person, place, time, situation. Cardiovascular: Capillary refill < 3 seconds in bilateral fingers Patient's skin is warm and dry. Respiratory: Airway is patent Respiratory effort is even, unlabored, Respiratory pattern is regular, symmetrical. GI: Abdomen is obese. Derm: Skin is intact, is healthy with good turgor, Skin is dry, Skin is normal. Musculoskeletal: Circulation, motion, and sensation intact. Range of motion: intact in all extremities. 14:36 Reassessment: ECP at bedside. zb 15:24 Reassessment: patient d/c ambulatory. gait even and steady. no questions at this time. zb Vital Signs: 13:19 BP 113 / 75; Pulse 68; Resp 16; Temp 97.1; Pulse Ox 100% ; Pain 5/10; hb 14:17 BP 121 / 71; Pulse 67; Resp 17; Pulse Ox 100% on R/A; zb 15:25 BP 109 / 60; Pulse 61; Resp 16; Pulse Ox 100% on R/A; zb ED Course: 12:47 Patient arrived in ED. ds1 13:21 Triage completed. hb 13:22 Arm band placed on. hb 14:05 Teresa Bradford, RN is Primary Nurse. zb 14:17 Patient has correct armband on for positive identification. Bed in low position. Call zb light in reach. Side rails up X 1. Adult w/ patient. Pulse ox on. NIBP on. Door closed. Noise minimized. 14:20 Tim Oswald PA is PHCP. jr8 14:20 Ethan Trent MD is Attending Physician. jr8 15:24 No provider procedures requiring assistance completed. Patient did not have IV access zb during this emergency room visit. Administered Medications: 14:52 Drug: TORadol (ketorolac) 30 mg Route: IM; Site: left deltoid; zb 15:26 Follow up: Response: No adverse reaction; Marked relief of symptoms; Pain is decreased zb 14:52 Drug: [place] (HYDROcodone-acetaminophen) 10 mg-325 mg 1 tabs {Note: RASS 0.} Route: PO; zb 15:26 Follow up: Response: No adverse reaction; Marked relief of symptoms; RASS: Alert and zb Calm (0) Outcome: 15:11 Discharge ordered by . jr8 15:24 Discharged to home ambulatory, with family. zb 15:24 Condition: stable 15:24 Discharge instructions given to patient, Instructed on discharge instructions, follow up and referral plans. medication usage, Demonstrated understanding of instructions, follow-up care, medications, Prescriptions given X 3. 15:27 Patient left the ED. aidan Signatures: Fabiana Augustine1 Tim Oswald PA PA jr8 Jes Thakur, RN RN Teresa Padgett RN RN aidan
--- NOTE | 2020-11-30 15:11 | EDPHYS ---
Physician Documentation [facility] Name: Salvador Fuchs Age: 30 yrs Sex: Male : 1990 Arrival Date: 11/30/2020 Time: 12:47 Bed 28 Private MD: ED Physician Ethan Trent HPI: 11/30 15:12 This 30 yrs old Male presents to ER via Ambulatory with complaints of low jr8 back pain. 15:12 The patient presents with pain that is chronic. The symptoms are located in the low jr8 back. The pain radiates to the right leg. Onset: The symptoms/episode began/occurred gradually, 2 day(s) ago. Modifying factors: The patient symptoms are alleviated by nothing, the patient symptoms are aggravated by any movement. Associated signs and symptoms: The patient has no apparent associated signs or symptoms. Severity of symptoms: At their worst the symptoms were moderate, in the emergency department the symptoms are unchanged. The patient has experienced similar episodes in the past, a few times. The patient has not recently seen a physician. Patient with history of low back pain from fractured vertebrae. Stated that he has flares from time to time. Started with pain two days ago that is worse. Denies trauma . Historical: - Allergies: 13:22 SEAFOOD; hb 13:22 SHELLFISH; hb - Immunization history:: Adult Immunizations up to date. - Social history:: Smoking status: unknown. ROS: 15:12 Eyes: Negative for injury, pain, redness, and discharge, ENT: Negative for injury, jr8 pain, and discharge, Neck: Negative for injury, pain, and swelling, Cardiovascular: Negative for chest pain, palpitations, and edema, Respiratory: Negative for shortness of breath, cough, wheezing, and pleuritic chest pain, Abdomen/GI: Negative for abdominal pain, nausea, vomiting, diarrhea, and constipation, MS/Extremity: Negative for injury and deformity, Skin: Negative for injury, rash, and discoloration, Neuro: Negative for headache, weakness, numbness, tingling, and seizure. 15:12 Back: Positive for pain at rest, pain with movement, radiated pain. Exam: 15:12 Constitutional: This is a well developed, well nourished patient who is awake, alert, jr8 and in no acute distress. Cardiovascular: Regular rate and rhythm with a normal S1 and S2. No gallops, murmurs, or rubs. Normal PMI, no JVD. No pulse deficits. Respiratory: Lungs have equal breath sounds bilaterally, clear to auscultation and percussion. No rales, rhonchi or wheezes noted. No increased work of breathing, no retractions or nasal flaring. Abdomen/GI: Soft, non-tender, with normal bowel sounds. No distension or tympany. No guarding or rebound. No evidence of tenderness throughout. Skin: Warm, dry with normal turgor. Normal color with no rashes, no lesions, and no evidence of cellulitis. MS/ Extremity: Pulses equal, no cyanosis. Neurovascular intact. Full, normal range of motion. Neuro: Awake and alert, GCS 15, oriented to person, place, time, and situation. Cranial nerves II-XII grossly intact. Motor strength 5/5 in all extremities. Sensory grossly intact. 15:12 Back: pain, that is moderate, of the low back area, ROM is painful, with all movement, normal spinal alignment noted, CVA tenderness, is absent, Straight leg raises: pain bilaterally. Vital Signs: 13:19 BP 113 / 75; Pulse 68; Resp 16; Temp 97.1; Pulse Ox 100% ; Pain 5/10; hb 14:17 BP 121 / 71; Pulse 67; Resp 17; Pulse Ox 100% on R/A; zb 15:25 BP 109 / 60; Pulse 61; Resp 16; Pulse Ox 100% on R/A; zb MDM: 14:20 Patient medically screened. [facility] 14:42 Data reviewed: vital signs, nurses notes, and as a result, I will discharge patient. [facility] Data interpreted: Pulse oximetry: on room air is 100 %. Interpretation: normal. Counseling: I had a detailed discussion with the patient and/or guardian regarding: the historical points, exam findings, and any diagnostic results supporting the discharge/admit diagnosis, the need for outpatient follow up, a family practitioner, to return to the emergency department if symptoms worsen or persist or if there are any questions or concerns that arise at home. Administered Medications: 14:52 Drug: TORadol (ketorolac) 30 mg Route: IM; Site: left deltoid; zb 15:26 Follow up: Response: No adverse reaction; Marked relief of symptoms; Pain is decreased zb 14:52 Drug: [place] (HYDROcodone-acetaminophen) 10 mg-325 mg 1 tabs {Note: RASS 0.} Route: PO; zb 15:26 Follow up: Response: No adverse reaction; Marked relief of symptoms; RASS: Alert and zb Calm (0) Disposition: 12/01 09:22 Co-signature as Attending Physician, Ethan Trent MD I agree with the assessment and ely plan of care. Disposition: 11/30/20 15:11 Discharged to Home. Impression: Radiculopathy, lumbar region, Low back pain. - Condition is Stable. - Discharge Instructions: Back Pain, Adult, Lumbosacral Radiculopathy, Musculoskeletal Pain, Heat Therapy. - Prescriptions for Ibuprofen 800 mg Oral Tablet - take 1 tablet by ORAL route every 12 hours As needed take with food; 20 tablet. Robaxin 500 mg Oral Tablet - take 2 tablet by ORAL route every 6 hours As needed; 40 tablet. Medrol ([place]) 4 mg Oral Tablets, Dose Pack - take 1 tablet by ORAL route as directed - follow package instructions; 1 packet. - Medication Reconciliation Form, Thank You Letter, Antibiotic Education, Prescription Opioid Use, Work release form form. - Follow up: Private Physician; When: 2 - 3 days; Reason: Recheck today's complaints, Continuance of care, Re-evaluation by your physician. - Problem is new. - Symptoms have improved. Signatures: Ethan Trent MD MD cha Roszak, Josh, PA PA jr8 Jes Thakur RN RN hb Brown, Zipporah, RN RN zb Corrections: (The following items were deleted from the chart) 11/30 15:27 15:11 11/30/2020 15:11 Discharged to Home. Impression: Radiculopathy, lumbar region; zb Low back pain. Condition is Stable. Forms are Medication Reconciliation Form, Thank You Letter, Antibiotic Education, Prescription Opioid Use. Follow up: Private Physician; When: 2 - 3 days; Reason: Recheck today's complaints, Continuance of care, Re-evaluation by your physician. Problem is new. Symptoms have improved. jr8
[2020-11-30 15:32] VITALS: TEMP 97.1; O2SAT 100
[2020-11-30 15:36] VITALS: BP 109/60
== END 2020-11-30 15:27 | disposition home or self-care (01) ==
LOC: ER 12:44
DX: M54.16 Radiculopathy, lumbar region (principal); Z91.013 Allergy to seafood
CPT/HCPCS: 96372; 99283

== ENCOUNTER 2021-06-24 18:32 | Emergency (ER) | payer SELFPAY ==
--- OUTSIDE RECORDS SUMMARY | 2021-06-24 18:35 | XMS REPORT | Continuity of Care Document ---
:1990 Author Organization [facility] t Address [address] [place] [address] Care Team Providers Name Role Phone Nils Shen MD Primary Care Physician NILS SHEN Attending Clinician Unavailable Nils Shen MD Attending Clinician EBRAHIM Attending Clinician Unavailable LOU Attending Clinician Unavailable UNKNOWN Attending Clinician Unavailable Cha Attending Clinician Unavailable AMBHUONG Attending Clinician Unavailable Cha Admitting Clinician Unavailable PAMELA Admitting Clinician Unavailable Payers Payer Name Policy Type Policy Number Effective Date Expiration Date S radha [facility] [id number] 2020 EMPLOYEE PLAN 00:00:00 Problems Condition Condition Condition Status Onset Resolution Last Treating Co mments Source Name Details Category Date Date Treatment Clinician Date No known No known Disease Unive rs active active ity of problems problems [facility] Allergies, Adverse Reactions, Alerts Allergy Allergy Status Severity Reaction(s) Onset Inactive Treating Comm ents Source Name Type Date Date Clinician IODINE DRUG Active Unknown-Cmnt Univ ers INGREDI 6-18 ity of 00:00: [address] Iodine Propensi Active Unknown - Unive rs ty to See comments 6-18 ity of adverse 00:00: [place] reaction 00 Medical s Branch SEAFOOD/ Food Active High Swelling 2017-07 Univer s FISH 0-18 ity of 00:00: [place] 00 Medical Branch Seafood/ Propensi Active Swelling 2017-07 Univ ers Fish ty to 0-18 ity of adverse 00:00: [place] reaction 00 Medical s Branch Social History Social Habit Start Date Stop Date Quantity Comments Source History of Snuff User University of tobacco use [place] [facility] History SDOH University o f Alcohol Frequency [place] [facility] History SDOH University o f Alcohol Std [place] [facility] Drinks [facility] History SDOH University o f Alcohol Binge [place] [facility] Exposure to Not sure University of SARS-CoV-2 [facility] (event) Branch Alcohol intake 2021-04-15 2021-04-15 Current drinker Unive rsity of 00:00:00 00:00:00 of alcohol [place] [facility] (finding) [facility] Tobacco use and 2021-01-06 2021-01-06 Current user Univers ity of exposure 00:00:00 00:00:00 [facility] Alcohol Comment 2021-01-06 2021-01-06 only occasional Univ ersity of 00:00:00 00:00:00 [facility] Sex Ass[birth year] Universit y of 00:00:00 00:00:00 [facility] Smoking Status Start Date Stop Date Source Current every day smoker 2021-01-06 00:00:00 Uni versity of [facility] Medications Ordered Filled Start Stop Current Ordering Indication Dosage Frequency Signature Comments Components Source Medication Medication Date Date Medication? Clinician (SIG) Name Name azithromyci Yes [id number] 500mg Take 1 Univers n 500 mg 9-27 tablet by ity of tablet 00:00: mouth [place] 00 daily. Medical Branch benzonatate Yes [id number] 200mg Take 1 Univers 200 mg 9-27 capsule by ity of capsule 00:00: mouth 3 [place] 00 (three) Medical times Branch daily as needed for Cough. ondansetron 2020- Yes [id number] 4mg Take 1 Univers 4 mg tablet - 10- tablet by it y of 00:00: 04:59 mouth [place] 00 :00 every 8 Medical (eight) Branch hours for 5 days. bromphenira 2020- No [id number] 5mL Take 5 mL Univers mine-pseudo 03-11 by mouth 4 i ty of ephedrine-D 00:00: 00:00 (four) Ravinder as M (BROMFED 00 :00 times Medical DM) 2-30-10 daily as Bran ch mg/5 mL needed for syrup Congestion /Allergies or Cough. escitalopra Yes [id number] 10mg Take 1 Univers m oxalate 6-18 tablet by ity o f 10 mg 00:00: mouth [place] tablet 00 daily. Medical Branch Vital Signs Vital Name Observation Time Observation Value Comments Source Systolic blood 2021-04-17 16:21:00 115 mm[Hg] Univer sity [facility] Diastolic blood 2021-04-17 16:21:00 75 mm[Hg] [facility] Heart rate 2021-04-17 16:21:00 91 /min [facility] Body temperature 2021-04-17 16:21:00 36.94 [facility] Body height 2021-04-17 16:21:00 177.8 cm [facility] Body weight 2021-04-17 16:21:00 129.729 kg [facility] BMI 2021-04-17 16:21:00 41.04 kg/m2 [facility] Oxygen saturation in 2021-04-17 16:21:00 99 /min [facility] Arterial blood by [facility] Pulse oximetry Branch Procedures This patient has no known procedures. Encounters Start End Encounter Admission Attending Care Care Encounter Source Date/Time Date/Time Type Type Clinicians Facility Department ID 2021-04-17 2021-04-17 Outpatient Kanika SHEN [facility] [id number] Univers 11:30:00 11:30:00 SHAKIRA [id number] [facility] 2021-04-17 2021-04-17 Outpatient Kanika SHEN [facility] [id number] Univers 11:30:00 11:30:00 SHAKIRA [facility] 2021-04-17 2021-04-17 Office Pedrito [facility] [id number] Univers 11:11:48 11:26:48 Visit [facility] [id number] it y of [place] [id number] Ravinder as Braydon?Blea [id number] [place] [address] [facility] 2021-04-15 2021-04-15 Outpatient R [facility] [id number] Univers 09:20:00 09:20:00 [id number] ity [facility] 2021-04-15 2021-04-15 Outpatient R RAMSEY, [facility] [id number] Univers 09:20:00 09:20:00 [facility] 2021-03-13 2021-03-13 Outpatient R [facility] [id number] Univers 10:20:00 10:20:00 [id number] [facility] 2021-03-13 2021-03-13 [facility] [id number] Univers 10:20:00 10:20:00 BABATUNDE [facility] 2021-03-11 2021-03-11 Outpatient R [facility] [id number] Univers 13:40:00 13:40:00 [id number] [facility] 2021-03-11 2021-03-11 Outpatient R UNKNOWN, [facility] [id number] Univers 13:40:00 13:40:00 ATTENDING [facility] 2021-03-06 2021-03-06 Outpatient R PEDRITO [facility] [id number] Univers 08:15:00 08:15:00 SHAKIRA [id number] [facility] 2021-03-06 2021-03-06 [facility] [id number] Univers 08:15:00 08:15:00 SHAKIRA [facility] 2021-02-03 2021-02-03 [facility] [id number] Univers 09:15:00 09:15:00 SHAKIRA [id number] [facility] 2021-02-03 2021-02-03 [facility] [id number] Univers 09:15:00 09:15:00 SHAKIRA [facility] 2021-02-02 2021-02-02 [facility] [id number] Univers 11:30:00 11:30:00 SHAKIRA [id number] [facility] 2021-02-02 2021-02-02 [facility] [id number] Univers 11:30:00 11:30:00 SHAKIRA [facility] 2021-01-06 2021-01-06 [facility] [id number] Univers 13:30:00 13:30:00 SHAKIRA [facility] 2020-09-12 2020-09-12 Outpatient Cha MMG MMG [id number] [place] 12:27:00 12:27:00 [id number] 2020-04-22 2020-04-22 [facility] [id number] [place] 09:39:00 09:39:00 BLOSSOM [id number] da [facility] h Program Results This patient has no known results.
[2021-06-24] MEDS ORDERED: HYDROCODONE/APAP 10/325 TAB ONE (21:10)
[2021-06-24] MEDS ORDERED: KETOROLAC 30 MG/ML INJ ONE (21:11)
[2021-06-24] MEDS ORDERED: LIDOCAINE 4% PATCH ONE (22:11)
--- NOTE | 2021-06-24 22:23 | EDPHYS ---
Physician Documentation [facility] Name: Salvador Fuchs Age: 31 yrs Sex: Male : 1990 Arrival Date: 06/24/2021 Time: 18:41 Bed 11 Private MD: BOBBI Physician Nando Michaud HPI: 06/24 21:00 This 31 yrs old Male presents to ER via Wheelchair with complaints of Back Pain. pm1 21:00 The patient presents with pain that is chronic, with no known mechanism of injury. The pm1 symptoms are located in the low back. Onset: The symptoms/episode began/occurred today. The pain radiates to the right leg. Associated signs and symptoms: Pertinent negatives: abdominal pain, dysuria, fever, incontinence, numbness, tingling. The problem was sustained Patient with history of L1 fracture 3 years ago. Has seen neurosurgeon in the past for this and informed nonoperative. Patient typically gets back pain flareups every 4 to 6-month. Modifying factors: The patient symptoms are alleviated by remaining still, the patient symptoms are aggravated by movement. Severity of symptoms: in the emergency department the symptoms are actually worse. The patient has experienced similar episodes in the past, multiple times, with the last episode occurring 4 month(s) ago. The patient has not recently seen a physician. Historical: - Allergies: 18:56 SEAFOOD; vg1 18:56 SHELLFISH; vg1 - Home Meds: 18:56 Buspirone Oral [Active]; diclofenac Oral [Active]; Zoloft Oral [Active]; vg1 - PMHx: 18:56 Back pain; compound fracture to L1; vg1 - Immunization history:: Client reports having NOT received the Covid vaccine. - Social history:: Smoking status: Patient reports the use of cigarette tobacco products, denies chronic smoking, but will smoke occasionally. ROS: 21:00 Constitutional: Negative for fever, chills, and weight loss, Cardiovascular: Negative pm1 for chest pain, palpitations, and edema, Respiratory: Negative for shortness of breath, cough, wheezing, and pleuritic chest pain, Abdomen/GI: Negative for abdominal pain, nausea, vomiting, diarrhea, and constipation. 21:00 MS/Extremity: Negative for injury and deformity, Skin: Negative for injury, rash, and discoloration. 21:00 Neuro: Negative for headache, weakness, numbness, tingling, and seizure. 21:00 Back: Positive for pain with movement, of the right low back. 21:00 All other systems are negative. Exam: 21:00 Constitutional: This is a well developed, well nourished patient who is awake, alert, pm1 and in no acute distress. Head/Face: Normocephalic, atraumatic. 21:00 Skin: Warm, dry with normal turgor. Normal color with no rashes, no lesions, and no evidence of cellulitis. MS/ Extremity: Pulses equal, no cyanosis. Neurovascular intact. Full, normal range of motion. 21:00 Eyes: Exam is negative for acute changes, Extraocular movements: no acute changes, Conjunctiva: no acute changes, no injection, Sclera: no acute changes, icterus, is not appreciated. 21:00 Cardiovascular: Exam negative for acute changes, Rate: normal, Rhythm: regular, Pulses: no pulse deficits are appreciated. 21:00 Respiratory: Exam negative for acute changes, respiratory distress, shortness of breath. 21:00 Back: muscle spasm, is appreciated in the right low back, Straight leg raises: right lower extremity illicits pain, at 15 degrees, left lower extremity illicits pain, at 15 degrees. 21:00 Neuro: Exam negative for acute changes, Orientation: is normal, Mentation: is normal, Motor: is normal, moves all fours, Sensation: is normal, no obvious gross deficits. Vital Signs: 18:54 BP 117 / 68; Pulse 84; Resp 16; Temp 97.8; Pulse Ox 98% ; Weight 131.54 kg; Height 5 vg1 ft. 9 in. (175.26 cm); Pain 7/10; 23:00 BP 115 / 78; Pulse 67; Resp 20; Pulse Ox 99% on R/A; lp1 18:54 Body Mass Index 42.83 (131.54 kg, 175.26 cm) vg1 MDM: 20:45 Patient medically screened. pm1 22:21 Data reviewed: vital signs. Data interpreted: Pulse oximetry: on room air is 98 %. pm1 Interpretation: normal. 22:21 Counseling: I had a detailed discussion with the patient and/or guardian regarding: the pm1 historical points, exam findings, and any diagnostic results supporting the discharge/admit diagnosis, the need for outpatient follow up, for definitive care, a neurologist, to return to the emergency department if symptoms worsen or persist or if there are any questions or concerns that arise at home. 22:41 ED course: Patient reports mild improvement in pain with medications given in ER, will pm1 give patient additional medicine, steroid prior to discharge. Administered Medications: 21:25 Drug: Ketorolac 60 mg Route: IM; Site: right deltoid; ld1 23:15 Follow up: Response: No change in condition lp1 21:25 Drug: [place] (HYDROcodone-acetaminophen) 10 mg-325 mg 1 tabs Route: PO; ld1 23:16 Follow up: Response: No change in condition lp1 22:17 Drug: Lidoderm Patch 5 % (700 mg/patch) 1 patches {Note: placed on lower back; Provider lp1 notified of Lidocaine 4% patch.} Route: Topical; Site: affected area; 23:08 Drug: Decadron (dexamethasone) 10 mg Route: IM; Site: left deltoid; lp1 23:16 Follow up: Response: Medication administered at discharge. lp1 Disposition: 06/25 05:17 Co-signature as Attending Physician, Nando Michaud MD. [email or web address] Disposition Summary: 06/24/21 22:22 Discharge Ordered Location: Home pm1 Problem: new pm1 Symptoms: have improved pm1 Condition: Stable pm1 Diagnosis - Lumbago with sciatica pm1 Followup: pm1 - With: Emergency Department - When: As needed - Reason: Worsening of condition Followup: pm1 - With: Private Physician - When: 2 - 3 days - Reason: Recheck today's complaints, Continuance of care, Re-evaluation by your physician Discharge Instructions: - Discharge Summary Sheet pm1 - Sciatica pm1 Forms: - Medication Reconciliation Form pm1 - Thank You Letter pm1 - Antibiotic Education pm1 - Prescription Opioid Use pm1 - Work release form lp1 Prescriptions: - Lidoderm 5 % Topical adhesive patch,medicated - apply 1 patch by TRANSDERMAL route once daily As needed 12 hours on and 12 pm1 hours off in a 24 hour period; 10 patch; Refills: 0, Product Selection Permitted - Cyclobenzaprine 10 mg Oral Tablet - take 1 tablet by ORAL route every 8 hours As needed; 30 tablet; Refills: 0, pm1 Product Selection Permitted - Medrol ([place]) 4 mg Oral Tablets, Dose Pack - take 1 tablet by ORAL route as directed - follow package instructions; 1 pm1 packet; Refills: 0, Product Selection Permitted - acetaminophen-codeine 300-15 mg Oral tablet - take 2 tablet by ORAL route every 6 hours As needed as needed; 20 tablet; pm1 Refills: 0, Product Selection Permitted Signatures: Mavis Hicks RN RN lp1 Otis Montelongo NP [employer] pm1 Karina Lee RN RN vg1 Nando Michaud MD MD [email or web address] Debora Aguilera RN RN ld1
--- NOTE | 2021-06-24 22:23 | ER ---
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 States lower back spasms and throughout the day the pain increased. States when standing sharp pain radiates stanislav Right leg, while sitting states 'sharp pulsation' pain in Right buttocks. Coronavirus screen: Vaccine status: Patient reports being unvaccinated. Client denies travel out of the [place] in the last 14 days. Ebola Screen: Patient negative for fever greater than or equal to 101.5 degrees Fahrenheit, and additional compatible Ebola Virus Disease symptoms. Initial Sepsis Screen: Does the patient meet any 2 criteria? No. Patient's initial sepsis screen is negative. Does the patient have a suspected source of infection? No. Patient's initial sepsis screen is negative. Risk Assessment: Do you want to hurt yourself or someone else? Patient reports no desire to harm self or others. Onset of symptoms was June 24, 2021. 18:54 Method Of Arrival: Wheelchair vg1 18:54 Acuity: KATHLEEN 3 vg1 Triage Assessment: 18:56 General: Appears in no apparent distress. uncomfortable, Behavior is calm, cooperative. vg1 Pain: Complains of pain in back Pain currently is 7 out of 10 on a pain scale. Musculoskeletal: Circulation, motion, and sensation intact. Historical: - Allergies: 18:56 SEAFOOD; vg1 18:56 SHELLFISH; vg1 - Home Meds: 18:56 Buspirone Oral [Active]; diclofenac Oral [Active]; Zoloft Oral [Active]; vg1 - PMHx: 18:56 Back pain; compound fracture to L1; vg1 - Immunization history:: Client reports having NOT received the Covid vaccine. - Social history:: Smoking status: Patient reports the use of cigarette tobacco products, denies chronic smoking, but will smoke occasionally. Screenin:00 Abuse screen: Denies threats or abuse. Denies injuries from another. Nutritional lp1 screening: No deficits noted. Tuberculosis screening: No symptoms or risk factors identified. Fall Risk None identified. Assessment: 21:20 General: Appears in no apparent distress. Behavior is appropriate for age. Pain: lp1 Complains of pain in lumbar area Pain currently is 9 out of 10 on a pain scale. Quality of pain is described as sharp. Neuro: Level of Consciousness is awake, alert, obeys commands, Tile Fitter are equal bilaterally Intact. Cardiovascular: Patient's skin is warm and dry. Respiratory: Respiratory effort is even, unlabored. GI: No signs and/or symptoms were reported involving the gastrointestinal system. : No signs and/or symptoms were reported regarding the genitourinary system. EENT: No signs and/or symptoms were reported regarding the EENT system. Derm: Skin is pink, warm \T\ dry. Musculoskeletal: Circulation, motion, and sensation intact. 21:53 Reassessment: Provider reports okay to administer Lidocaine patch 4%. lp1 Vital Signs: 18:54 BP 117 / 68; Pulse 84; Resp 16; Temp 97.8; Pulse Ox 98% ; Weight 131.54 kg; Height 5 vg1 ft. 9 in. (175.26 cm); Pain 7/10; 23:00 BP 115 / 78; Pulse 67; Resp 20; Pulse Ox 99% on R/A; lp1 18:54 Body Mass Index 42.83 (131.54 kg, 175.26 cm) vg1 ED Course: 18:41 Patient arrived in ED. ds1 18:56 Triage completed. vg1 18:58 Arm band placed on. vg1 20:45 Otis Montelongo NP is PHCP. pm1 20:45 Nando Michaud MD is Attending Physician. pm1 21:34 Debora Aguilera RN is Primary Nurse. ld1 22:00 Patient has correct armband on for positive identification. lp1 22:00 No provider procedures requiring assistance completed. Patient did not have IV access lp1 during this emergency room visit. Administered Medications: 21:25 Drug: Ketorolac 60 mg Route: IM; Site: right deltoid; ld1 23:15 Follow up: Response: No change in condition lp1 21:25 Drug: [place] (HYDROcodone-acetaminophen) 10 mg-325 mg 1 tabs Route: PO; ld1 23:16 Follow up: Response: No change in condition lp1 22:17 Drug: Lidoderm Patch 5 % (700 mg/patch) 1 patches {Note: placed on lower back; Provider lp1 notified of Lidocaine 4% patch.} Route: Topical; Site: affected area; 23:08 Drug: Decadron (dexamethasone) 10 mg Route: IM; Site: left deltoid; lp1 23:16 Follow up: Response: Medication administered at discharge. lp1 Outcome: 22:22 Discharge ordered by MD. pm1 23:10 Discharged to home ambulatory, with significant other. lp1 23:10 Condition: good 23:10 Discharge instructions given to patient, significant other, Instructed on discharge instructions, follow up and referral plans. medication usage, Demonstrated understanding of instructions, follow-up care, medications, Prescriptions given X 4. 23:17 Patient left the ED. 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 States lower back spasms and throughout the day the pain increased. 1 18:58 18:54 Coronavirus screen: Vaccine status: Patient reports being unvaccinated. Client vg1 denies travel out of the [place] in the last 14 days. vg1
[2021-06-24] MEDS ORDERED: dexAMETHasone 10 MG/ML VIAL ONE (23:02)
[2021-06-24 23:25] VITALS: BP 117/68; TEMP 97.8; O2SAT 98
== END 2021-06-24 23:17 | disposition home or self-care (01) ==
LOC: ER 18:32
DX: M54.40 Lumbago with sciatica, unspecified side (principal); F17.210 Nicotine dependence, cigarettes, uncomplicated; Z91.013 Allergy to seafood
CPT/HCPCS: 96372; 99283; J1100

== ENCOUNTER 2021-07-06 19:52 | Emergency (ER) | payer SELFPAY ==
--- OUTSIDE RECORDS SUMMARY | 2021-07-06 19:55 | XMS REPORT | Continuity of Care Document ---
:1990 Author Organization [facility] t Address [address] [place] [address] Care Team Providers Name Role Phone Nils Shen MD Primary Care Physician NILS SHEN Attending Clinician Unavailable Nils Shen MD Attending Clinician EBRAHIM Attending Clinician Unavailable LOU Attending Clinician Unavailable UNKNOWN Attending Clinician Unavailable Cha Attending Clinician Unavailable AMBHUONG Attending Clinician Unavailable Cha Admitting Clinician Unavailable PAMELA Admitting Clinician Unavailable Payers Payer Name Policy Type Policy Number Effective Date Expiration Date S radha [facility] [id number] 2020 EMPLOYEE PLAN 00:00:00 Problems Condition Condition Condition Status Onset Resolution Last Treating Co mments Source Name Details Category Date Date Treatment Clinician Date No known No known Disease Unive rs active active ity of problems problems [facility] Allergies, Adverse Reactions, Alerts Allergy Allergy Status Severity Reaction(s) Onset Inactive Treating Comm ents Source Name Type Date Date Clinician IODINE DRUG Active Unknown-Cmnt Univ ers INGREDI 6-18 ity of 00:00: [address] Iodine Propensi Active Unknown - Unive [...] of Snuff User University of tobacco use [facility] History SDOH University o f Alcohol Frequency [place] [facility] History SDOH University o f Alcohol Std [place] [facility] Drinks [facility] History SDOH University o f Alcohol Binge [facility] [place] [facility] Exposure to Not sure University of SARS-CoV-2 [facility] (event) Branch Alcohol intake 2021-04-15 2021-04-15 Current drinker Unive rsity of 00:00:00 00:00:00 of alcohol [place] [facility] (finding) Branch Tobacco use and 2021-01-06 2021-01-06 Current user Univers ity of exposure 00:00:00 00:00:00 [facility] Alcohol Comment 2021-01-06 2021-01-06 only occasional Univ ersity of 00:00:00 00:00:00 [facility] Sex Ass[birth year] Universit y of 00:00:00 00:00:00 [facility] Smoking Status Start Date Stop Date Source Current every day smoker 2021-01-06 00:00:00 Uni versity of [facility] Medications Ordered Filled Start Stop Current Ordering Indication Dosage Frequency Signature Comments Components Source Medication Medication Date Date Medication? Clinician (SIG) Name Name azithromyci Yes [id number] 500mg Take 1 Univers n 500 mg 9-27 tablet by ity of tablet 00:00: mouth [place] 00 daily. Medical Branch benzonatate Yes [id number] 200mg Take 1 Univers 200 mg 9-27 capsule by ity of capsule 00:00: mouth 3 [place] 00 (three) Medical times Branch daily as needed for Cough. ondansetron 2020- Yes [id number] 4mg Take 1 Univers 4 mg tablet - 10- tablet by it y of 00:00: 04:59 mouth [place] 00 :00 every 8 Medical (eight) Branch hours for 5 days. bromphenira 2020- No [id number] 5mL Take 5 mL Univers mine-pseudo 03-11 by mouth 4 i ty of ephedrine-D 00:00: 00:00 (four) Ravinder as M (BROMFED 00 :00 times Medical DM) 2-30-10 daily as Bran ch mg/5 mL needed for syrup Congestion /Allergies or Cough. escitalopra Yes [id number] 10mg Take 1 Univers m oxalate 6-18 tablet by ity o f 10 mg 00:00: mouth [place] tablet 00 daily. Medical Branch Vital Signs Vital Name Observation Time Observation Value Comments Source Systolic blood 2021-04-17 16:21:00 115 mm[Hg] Univer sity [facility] Diastolic blood 2021-04-17 16:21:00 75 mm[Hg] [facility] Heart rate 2021-04-17 16:21:00 91 /min [facility] Body temperature 2021-04-17 16:21:00 36.94 Mulu [facility] Body height 2021-04-17 16:21:00 177.8 cm [facility] Body weight 2021-04-17 16:21:00 129.729 kg [facility] BMI 2021-04-17 16:21:00 41.04 kg/m2 [facility] Oxygen saturation in 2021-04-17 16:21:00 99 /min [facility] Arterial blood by [facility] Pulse oximetry Branch Procedures This patient has no known procedures. Encounters Start End Encounter Admission Attending Care Care Encounter Source Date/Time Date/Time Type Type Clinicians Facility Department ID 2021-04-17 2021-04-17 Outpatient Kanika SHEN [facility] [id number] Univers 11:30:00 11:30:00 SHAKIRA [id number] [facility] 2021-04-17 2021-04-17 Outpatient Kanika SHEN [facility] [id number] Univers 11:30:00 11:30:00 SHAKIRA [facility] 2021-04-17 2021-04-17 Office Pedrito [facility] [id number] Univers 11:11:48 11:26:48 Visit [facility] [id number] it y of [place] [id number] Ravinder as Braydon?Blea [id number] Fl celso [address] [facility] 2021-04-15 2021-04-15 Outpatient R [facility] [id number] Univers 09:20:00 09:20:00 [id number] [facility] 2021-04-15 2021-04-15 Outpatient R RAMSEY, [facility] [id number] Univers 09:20:00 09:20:00 [facility] 2021-03-13 Outpatient R [facility] [id number] Univers 10:20:00 10:20:00 [id number] [facility] 2021-03-13 2021-03-13 [facility] [id number] Univers 10:20:00 10:20:00 BABATUNDE [place] [facility] 2021-03-11 2021-03-11 Outpatient R [facility] [id number] Univers 13:40:00 13:40:00 [id number] [facility] 2021-03-11 2021-03-11 Outpatient R UNKNOWN, [facility] [id number] Univers 13:40:00 13:40:00 ATTENDING [facility] 2021-03-06 2021-03-06 Outpatient R PEDRITO [facility] [id number] Univers 08:15:00 08:15:00 SHAKIRA [id number] [facility] 2021-03-06 2021-03-06 [facility] [id number] Univers 08:15:00 08:15:00 SHAKIRA [facility] 2021-02-03 2021-02-03 [facility] [id number] Univers 09:15:00 09:15:00 SHAKIRA [id number] [facility] 2021-02-03 2021-02-03 [facility] [id number] Univers 09:15:00 09:15:00 SHAKIRA [facility] 2021-02-02 2021-02-02 Outpatient BHAVESHLE [facility] [id number] Univers 11:30:00 11:30:00 SHAKIRA [id number] [facility] 2021-02-02 2021-02-02 Outpatient Kanika BHAVESHLE [facility] [id number] Univers 11:30:00 11:30:00 SHAKIRA [facility] 2021-01-06 2021-01-06 Outpatient Kanika OSPINALE [facility] [id number] Univers 13:30:00 13:30:00 SHAKIRA [facility] 2020-09-12 2020-09-12 Outpatient Cha MMG MMG [id number] [place] 12:27:00 12:27:00 [id number] [facility] 2020-04-22 2020-04-22 Outpatient [facility] [id number] [place] 09:39:00 09:39:00 BLOSSOM [id number] da [facility] h Program Results This patient has no known results.
--- NOTE | 2021-07-06 20:26 | ER ---
Nurse's Notes [facility] Name: Salvador Fuchs Age: 31 yrs Sex: Male : 1990 Arrival Date: 07/06/2021 Time: 19:54 Bed Waiting Private MD: Diagnosis: Assessment: 07/06 20:18 [facility]ass[facility] Registration stated pt left. vg1 ED Course: 19:54 Patient arrived in ED. kc5 Administered Medications: No medications were administered Outcome: 20:26 Patient left the ED. vg1 Signatures: Karina Lee RN RN vg1 Chiquis Mcintyre kc5 Corrections: (The following items were deleted from the chart) 20:25 20:18 Reassessment: Registration stated pt left vg1 vg1
== END 2021-07-06 20:26 | disposition left against medical advice (07) ==
LOC: ER 19:52
DX: Z02.9 Encounter for administrative examinations, unspecified (principal)

== ENCOUNTER 2022-01-20 14:34 | Emergency (ER) | payer BC, SELFPAY ==
[2022-01-20 17:23] LABS: Absolute Lymphocytes (CBC) 3.3 K/uL (0.7-4.9); Hematocrit 39.5 % (39.6-49.0); Lymphocytes % 23.9 % (15.3-44.8); MCV 80.2 fL (80-100); MPV 8.7 fL (7.6-11.3); RBC Red Blood Cell Count 4.92 M/uL (4.33-5.43)
[2022-01-20] MEDS ORDERED: KETOROLAC 30 MG/ML INJ ONE (17:30)
[2022-01-20] MEDS ORDERED: METHYLPREDNISOLONE 125 MG INJ ONE (17:30)
[2022-01-20] MEDS ORDERED: GABAPENTIN 300 MG CAP ONE (17:30)
--- NOTE | 2022-01-20 17:31 | RAD REPORT ---
EXAM DESCRIPTION: RAD - Chest Single View - 01/20/2022 5:19 pm CLINICAL HISTORY: CHEST PAIN COMPARISON: Chest Single View dated 08/30/2020; Chest Pa And Lat (2 Views) dated 07/27/2017; Chest Singl e View dated 02/27/2017 FINDINGS: Lines: None. Lungs: No evidence of edema or pneumonia. Low lung volumes. Pleural: No significant pleural effusions or pneumothorax. Cardiac: The heart size is within normal limits. Bones: No acute fractures. Other: IMPRESSION: No acute cardiopulmonary disease.
[2022-01-20 17:46] LABS: Potassium 4.2 mmol/L (3.5-5.1); Troponin High Sensitivity 3.3 pg/mL (<58.9)
--- NOTE | 2022-01-20 18:09 | RAD REPORT ---
EXAM DESCRIPTION: MRI - C Spine Wo Cont - 01/20/2022 6:00 pm CLINICAL HISTORY: Back pain COMPARISON: None TECHNIQUE: Sagittal T1-weighted, T2-weighted and T2-STIR sequences were obtained as well as axial T2 medic sequence obtained. FINDINGS: Cervical vertebral bodies are normal in height and alignment. No suspicious marrow edema o r marrow replacing process. Cerebellar tonsils and mid-line skull base show no suspicious finding. No significant finding at the C1 and C2 levels. C2-3 level: No significant findings. C3-4 level: No significant findings. C4-5 level: No significant findings. C5-6 level: No significant findings. C7-T1 level: No significant findings. Cervical cord shows no focal narrowing, expansion or signal abnormality. IMPRESSION: MRI of the cervical spine is within normal limits. No abnormal cord signal.
[2022-01-20] MEDS ORDERED: METOPROLOL TAR 25 MG TAB ONE (18:15)
[2022-01-20] MEDS ORDERED: HYDROCODONE/APAP 7.5/325 MG TAB ONE (19:23)
--- NOTE | 2022-01-20 20:18 | ER ---
Nurse's Notes [facility] Name: Salvador Fuchs Age: 31 yrs Sex: Male : 1990 Arrival Date: 01/20/2022 Time: 14:36 Bed 19 Private MD: Diagnosis: Chest pain, unspecified;Paresthesia of skin Presentation: 01/20 14:43 Chief complaint: Patient states: L sided chest pain that radiates down L arm that began vg1 3 days ago. Coronavirus screen: Client denies travel out of the [place] in the last 14 days. Ebola Screen: Patient denies exposure to infectious person. Patient denies travel to an Ebola-affected area in the 21 days before illness onset. Initial Sepsis Screen: Does the patient meet any 2 criteria? No. Patient's initial sepsis screen is negative. Does the patient have a suspected source of infection? No. Patient's initial sepsis screen is negative. Risk Assessment: Do you want to hurt yourself or someone else? Patient reports no desire to harm self or others. Onset of symptoms was January 18, 2022. 14:43 Method Of Arrival: Ambulatory vg1 14:43 Acuity: KATHLEEN 3 vg1 Historical: - Allergies: 14:44 SEAFOOD; vg1 14:44 SHELLFISH; vg1 - PMHx: 14:44 Back pain; compound fracture to L1; vg1 - PSHx: 14:44 Appendectomy; Cholecystectomy; vg1 - Immunization history:: Client reports having NOT received the Covid vaccine. - Social history:: Smoking status: Patient reports use of chewing tobacco. Reported history of juuling and/or vaping. Screenin:14 Abuse screen: Denies threats or abuse. Denies injuries from another. Nutritional ph screening: No deficits noted. Tuberculosis screening: No symptoms or risk factors identified. Fall Risk None identified. Assessment: 17:59 General: Appears in no apparent distress. comfortable, Behavior is calm, cooperative, ph appropriate for age. Pain: Complains of pain in left clavicle Pain radiates to left arm Pain began this morning. Neuro: Level of Consciousness is awake, alert, obeys commands, Oriented to person, place, time, situation. Cardiovascular: Reports chest pain, Denies diaphoresis, fatigue, lightheadedness, nausea, shortness of breath, Capillary refill < 3 seconds in bilateral fingers Patient's skin is warm and dry. Respiratory: Airway is patent Respiratory effort is even, unlabored. GI: No signs and/or symptoms were reported involving the gastrointestinal system. Derm: Skin is intact, is healthy with good turgor, Skin is pink, warm \T\ dry. Musculoskeletal: Circulation, motion, and sensation intact. Range of motion: intact in all extremities. 19:48 Reassessment: Patient and/or family updated on plan of care and expected duration. Pain ll3 level reassessed. Patient is alert, oriented x 3, equal unlabored respirations, skin warm/dry/pink. 20:59 Reassessment: No changes from previously documented assessment. Patient and/or family ll3 updated on plan of care and expected duration. Pain level reassessed. Patient is alert, oriented x 3, equal unlabored respirations, skin warm/dry/pink. Vital Signs: 14:45 Pulse 81; Resp 14; Temp 98.9(TE); Pulse Ox 100% on R/A; Height 5 ft. 10 in. (177.80 ss cm); Pain 6/10; 14:47 BP 129 / 79; ss 16:30 BP 110 / 54; Pulse 68; Resp 16; Pulse Ox 99% on R/A; ph 17:30 BP 112 / 66; Pulse 71; Resp 18; Pulse Ox 99% on R/A; ph 18:30 BP 118 / 79; Pulse 69; Resp 20; Pulse Ox 98% on R/A; ph 20:59 BP 117 / 74; Pulse 80; Resp 17; Pulse Ox 99% on R/A; ll3 ED Course: 14:36 Patient arrived in ED. rg4 14:42 Kody Mack MD is Attending Physician. kdr 14:44 Triage completed. vg1 14:44 Arm band placed on right wrist. vg1 16:13 Jen Giordano, RN is Primary Nurse. ph 16:14 Patient has correct armband on for positive identification. Bed in low position. Call ph light in reach. Side rails up X 1. decorative engraver apprentice on. Pulse ox on. NIBP on. 16:14 Patient maintains SpO2 saturation greater than 95% on room air. ph 17:15 Initial lab(s) drawn, by me, sent to lab. Inserted saline lock: 20 gauge in right ph antecubital area, using aseptic technique. Blood collected. 17:21 XRAY Chest (1 view) In Process Unspecified. EDMS 18:00 C Spine Wo Cont In Process Unspecified. EDMS 19:01 Otis Montelongo NP is PHCP. pm1 19:23 Attending Physician role handed off by Kody Mack MD cha 19:23 Ethan Trent MD is Attending Physician. ely 20:05 US Extremity Venous Unilateral Ltd In Process Unspecified. EDMS 20:56 No provider procedures requiring assistance completed. IV discontinued, intact, ll3 bleeding controlled, No redness/swelling at site. Pressure dressing applied. Administered Medications: 17:30 Drug: Neurontin (gabapentin) 300 mg Route: PO; ph 18:57 Follow up: Response: No adverse reaction ph 17:30 Drug: Ketorolac 15 mg Route: IVP; Site: right antecubital; ph 18:58 Follow up: Response: No adverse reaction ph 17:30 Drug: SOLU-Medrol (methylPrednisoLONE) 125 mg Route: IVP; Site: right antecubital; ph 18:58 Follow up: Response: No adverse reaction ph 18:02 CANCELLED (Duplicate Order): SOLU-Medrol (methylPREDNISolone sodium succinate) 125 mg ph IM once 19:25 Drug: [place] (HYDROcodone-acetaminophen) (7.5 mg-325 mg) 1 tabs Route: PO; ll3 Medication: 16:14 VIS not applicable for this client. ph Outcome: 20:17 Discharge ordered by . pm1 20:56 Discharged to home ambulatory, with family. ll3 20:56 Condition: stable 20:56 Discharge instructions given to patient, significant other, Instructed on discharge instructions, follow up and referral plans. medication usage, Demonstrated understanding of instructions, follow-up care, medications, Prescriptions given X 2. 20:59 Patient left the ED. ll3 Signatures: Dispatcher [employer] EDND Ethan Trent MD MD cha Rittger, Kevin, MD MD kdr Smirch, Shelby, RN RN ss Hall, Patricia, RN RN Otis Montelongo NP LOAN ORIGINATOR pm1 Helena Lee Victoria, RN RN 1 Binu Horton RN RN ll3
--- NOTE | 2022-01-20 20:18 | EDPHYS ---
Physician Documentation [facility] Name: Salvador Fuchs Age: 31 yrs Sex: Male : 1990 Arrival Date: 01/20/2022 Time: 14:36 Bed 19 Private MD: ED Physician Ethan Trent HPI: 01/20 17:43 This 31 yrs old Male presents to ER via Ambulatory with complaints of Chest Pain, Arm kdr Pain. 17:43 The patient or guardian reports chest pain that is located primarily in the anterior kdr chest wall, left, chest diffusely. The pain radiates to the left arm, the left shoulder. Associated signs and symptoms: The patient has no apparent associated signs or symptoms. The chest pain is described as aching, burning, sharp. Duration: The patient or guardian reports multiple episodes, that are intermittent, that wax and wane, with no pattern. Modifying factors: The symptoms are alleviated by nothing. the symptoms are aggravated by nothing. Severity of pain: At its worst the pain was mild moderate just prior to arrival, in the emergency department the pain has resolved. The patient has not experienced similar symptoms in the past. The patient has not recently seen a physician. Historical: - Allergies: 14:44 SEAFOOD; vg1 14:44 SHELLFISH; vg1 - PMHx: 14:44 Back pain; compound fracture to L1; vg1 - PSHx: 14:44 Appendectomy; Cholecystectomy; vg1 - Immunization history:: Client reports having NOT received the Covid vaccine. - Social history:: Smoking status: Patient reports use of chewing tobacco. Reported history of juuling and/or vaping. ROS: 17:43 Constitutional: Negative for fever, chills, and weight loss, Eyes: Negative for injury, kdr pain, redness, and discharge, Neck: Negative for injury, pain, and swelling, Respiratory: Negative for shortness of breath, cough, wheezing, and pleuritic chest pain, Abdomen/GI: Negative for abdominal pain, nausea, vomiting, diarrhea, and constipation, Back: Negative for injury and pain, : Negative for injury, bleeding, discharge, and swelling, MS/Extremity: Negative for injury and deformity, Skin: Negative for injury, rash, and discoloration, Psych: Negative for depression, anxiety, suicide ideation, homicidal ideation, and hallucinations, Allergy/Immunology: Negative for hives, rash, and allergies, Endocrine: Negative for neck swelling, polydipsia, polyuria, polyphagia, and marked weight changes, Hematologic/Lymphatic: Negative for swollen nodes, abnormal bleeding, and unusual bruising. 17:43 Cardiovascular: Positive for chest pain, of the left clavicle and anterior aspect of left upper chest, Negative for edema, orthopnea, palpitations, paroxysmal nocturnal dyspnea, acute changes. Exam: 17:43 Constitutional: This is a well developed, well nourished patient who is awake, alert, kdr and in no acute distress. Head/Face: Normocephalic, atraumatic. Eyes: Pupils equal round and reactive to light, extra-ocular motions intact. Lids and lashes normal. Conjunctiva and sclera are non-icteric and not injected. Cornea within normal limits. Periorbital areas with no swelling, redness, or edema. Neck: Trachea midline, no thyromegaly or masses palpated, and no cervical lymphadenopathy. Supple, full range of motion without nuchal rigidity, or vertebral point tenderness. No Meningismus. Chest/axilla: Normal chest wall appearance and motion. Nontender with no deformity. No lesions are appreciated. Cardiovascular: Regular rate and rhythm with a normal S1 and S2. No gallops, murmurs, or rubs. Normal PMI, no JVD. No pulse deficits. Respiratory: Lungs have equal breath sounds bilaterally, clear to auscultation and percussion. No rales, rhonchi or wheezes noted. No increased work of breathing, no retractions or nasal flaring. Abdomen/GI: Soft, non-tender, with normal bowel sounds. No distension or tympany. No guarding or rebound. No evidence of tenderness throughout. Back: No spinal tenderness. No costovertebral tenderness. Full range of motion. Skin: Warm, dry with normal turgor. Normal color with no rashes, no lesions, and no evidence of cellulitis. Vital Signs: 14:45 Pulse 81; Resp 14; Temp 98.9(TE); Pulse Ox 100% on R/A; Height 5 ft. 10 in. (177.80 ss cm); Pain 6/10; 14:47 BP 129 / 79; ss 16:30 BP 110 / 54; Pulse 68; Resp 16; Pulse Ox 99% on R/A; ph 17:30 BP 112 / 66; Pulse 71; Resp 18; Pulse Ox 99% on R/A; ph 18:30 BP 118 / 79; Pulse 69; Resp 20; Pulse Ox 98% on R/A; ph 20:59 BP 117 / 74; Pulse 80; Resp 17; Pulse Ox 99% on R/A; ll3 MDM: 17:43 Data reviewed: vital signs, nurses notes, lab test result(s), EKG, radiologic studies. kdr Counseling: I had a detailed discussion with the patient and/or guardian regarding: the historical points, exam findings, and any diagnostic results supporting the discharge/admit diagnosis, lab results, radiology results, the need for outpatient follow up. 19:45 Patient medically screened. pm1 20:16 Data interpreted: Pulse oximetry: on room air is 98 %. Interpretation: normal. pm1 20:16 Counseling: I had a detailed discussion with the patient and/or guardian regarding: the pm1 historical points, exam findings, and any diagnostic results supporting the discharge/admit diagnosis, lab results, the need for outpatient follow up, a family practitioner, to return to the emergency department if symptoms worsen or persist or if there are any questions or concerns that arise at home. 01/20 16:34 Order name: Basic Metabolic Panel; Complete Time: 17:55 [facility] 01/20 16:34 Order name: CBC with Diff; Complete Time: 17:55 [facility] 01/20 16:34 Order name: Troponin HS; Complete Time: 17:55 [facility] 01/20 16:34 Order name: XRAY Chest (1 view); Complete Time: 17:55 [facility] 01/20 18:38 Order name: Troponin High Sensitivity; Complete Time: 20:16 [facility] 01/20 17:44 Order name: C Spine Wo Cont; Complete Time: 18:28 EDMS 01/20 18:37 Order name: US Extremity Venous Unilateral Ltd; Complete Time: 20:21 kdr 01/20 15:10 Order name: EKG; Complete Time: 15:11 ss 01/20 15:10 Order name: EKG - Nurse/Tech; Complete Time: 15:10 01/20 16:34 Order name: Cardiac monitoring; Complete Time: 17:19 [facility] 01/20 16:34 Order name: IV Saline Lock; Complete Time: 17:19 [facility] 01/20 16:34 Order name: Labs collected and sent; Complete Time: 17:20 kdr 01/20 16:34 Order name: O2 Per Protocol; Complete Time: 17:20 kdr 01/20 16:34 Order name: O2 Sat Monitoring; Complete Time: 17:20 kdr Administered Medications: 17:30 Drug: Neurontin (gabapentin) 300 mg Route: PO; ph 18:57 Follow up: Response: No adverse reaction ph 17:30 Drug: Ketorolac 15 mg Route: IVP; Site: right antecubital; ph 18:58 Follow up: Response: No adverse reaction ph 17:30 Drug: SOLU-Medrol (methylPrednisoLONE) 125 mg Route: IVP; Site: right antecubital; ph 18:58 Follow up: Response: No adverse reaction ph 18:02 CANCELLED (Duplicate Order): SOLU-Medrol (methylPREDNISolone sodium succinate) 125 mg ph IM once 19:25 Drug: [place] (HYDROcodone-acetaminophen) (7.5 mg-325 mg) 1 tabs Route: PO; ll3 Disposition: 01/21 07:07 Co-signature as Attending Physician, Kody Mack MD I agree with the assessment and kdr plan of care. Disposition Summary: 01/20/22 20:17 Discharge Ordered Location: Home pm1 Problem: new pm1 Symptoms: have improved pm1 Condition: Stable pm1 Diagnosis - Chest pain, unspecified pm1 - Paresthesia of skin pm1 Followup: pm1 - With: Emergency Department - When: As needed - Reason: Worsening of condition Followup: pm1 - With: Private Physician - When: 2 - 3 days - Reason: Recheck today's complaints, Continuance of care, Re-evaluation by your physician Discharge Instructions: - Discharge Summary Sheet pm1 - Nonspecific Chest Pain, Adult pm1 - Paresthesia pm1 Forms: - Medication Reconciliation Form pm1 - Thank You Letter pm1 - Antibiotic Education pm1 - Prescription Opioid Use pm1 - Work release form pm1 Prescriptions: - Cyclobenzaprine 10 mg Oral Tablet - take 1 tablet by ORAL route every 8 hours As needed; 30 tablet; Refills: 0, pm1 Product Selection Permitted - Diclofenac Sodium 75 mg Oral tablet,delayed release (DR/EC) - take 1 tablet by ORAL route 2 times per day As needed; 30 tablet; Refills: 0, pm1 Product Selection Permitted Signatures: Dispatcher [employer] EDMS Kody Mack MD MD kdr Smirch, Shelby, RN RN ss Jen Giordano, OUMAR RN ph Otis Montelongo, GLUE CLAMP OPERATOR GLUE CLAMP OPERATOR pm1 Karina Lee RN RN vg1 Binu Horton RN RN ll3 Corrections: (The following items were deleted from the chart) 01/20 17:27 17:22 C Spine Wo Con+CT.RAD.BRZ ordered. EDMS EDMS 17:44 17:31 Neck Without Cont+MRI.RAD.BRZ ordered. EDMS EDMS 18:02 17:19 SOLU-Medrol (methylPREDNISolone sodium succinate) 125 mg IM once ordered. ph ph 18:02 18:02 SOLU-Medrol (methylPREDNISolone sodium succinate) 125 mg IM once ordered. ph ph
--- NOTE | 2022-01-20 20:19 | RAD REPORT ---
EXAM DESCRIPTION: US - Extremity Venous Uni Ltd - 01/20/2022 8:04 pm CLINICAL HISTORY: Pain COMPARISON: No comparisons FINDINGS: Color Doppler, grayscale, and spectral analysis was performed. Patent left internal jugular vein, left subclavian vein, left axillary vein, left brachial vein, left basilic vein, left cephalic vein common left radial vein, and left ulnar vein. All veins were compre ssible and demonstrated color Doppler flow. IMPRESSION: No venous thrombosis in the left upper extremity is identified.
[2022-01-20 21:17] VITALS: TEMP 98.9
[2022-01-20 21:26] VITALS: BP 117/74; O2SAT 99
--- NOTE | 2022-01-23 08:03 | EKG ---
Test Date: 2022-01-20 Test Time: 14:50:36 Journalist: CHAPARRO MEASUREMENT RESULTS: Intervals: Rate: 85 VT: 150 QRSD: 92 QT: 366 QTc: 435 Edgard: P: 38 VT: 150 QRS: -10 T: 17 INTERPRETIVE STATEMENTS: Normal sinus rhythm Incomplete right bundle branch block Minimal voltage criteria for LVH, may be normal variant Borderline ECG Compared to ECG 02/27/2017 21:17:52 Incomplete right bundle-branch block now present Left ventricular hypertrophy now present Electronically Signed On 01-23-22 07:56:13 CDT by Miller Laws
== END 2022-01-20 20:59 | disposition home or self-care (01) ==
LOC: ER 14:34
DX: R07.89 Other chest pain (principal); R20.2 Paresthesia of skin; F17.220 Nicotine dependence, chewing tobacco, uncomplicated; Z91.013 Allergy to seafood
CPT/HCPCS: 93005; 85025; 80048; 36415; 84484 ×2; 71045; 93971; 72141; 96375; 96374; 99285; J2930

== ENCOUNTER 2022-07-30 11:28 | Emergency (ER) | payer BC ==
--- OUTSIDE RECORDS SUMMARY | 2022-07-30 11:35 | XMS REPORT | Continuity of Care Document ---
:1990 Author Organization [facility] t Address [address] [place] [address] Care Team Providers Name Role Phone SHAKIRA MAJOR Primary Care Physician Unavailable Nida Franco RN Attending Clinician Unavailable VALERIY BRANHAM Attending Clinician Unavailable Valeriy Marte Attending Clinician Unknown, Attending Attending Clinician Unavailable Doctor Unassigned, [place] Attending Clinician Unavailable Rosa Villanueva Attending Clinician ROSA BLAKE Attending Clinician Unavailable [facility] Attending Clinician Unavailable King JUAN LUIS MD, James C Attending Clinician Only, Rafy Manley Test Attending Clinician Unavailable Anges Sadler Attending Clinician AGNES RAMIREZ Attending Clinician Unavailable SHAKIRA MAJOR Attending Clinician Unavailable Shakira Major MD Attending Clinician SEVEN MUSTAFA Attending Clinician Unavailable Seven Nick Attending Clinician UNKNOWN, ATTENDING Attending Clinician Unavailable Cha Attending Clinician Unavailable PAMELA Attending Clinician Unavailable Cha Admitting Clinician Unavailable PAMELA Admitting Clinician Unavailable Payers Payer Name Policy Type Policy Number Effective Date Expiration Date S radha [employer] [place] [id number] 2020 EMPLOYEE PLAN 00:00:00 Problems Condition Condition Condition Status Onset Resolution Last Treating Co mments Source Name Details Category Date Date Treatment Clinician Date No known No known Disease Unive rs active active ity of problems problems [place] [facility] Allergies, Adverse Reactions, Alerts Allergy Allergy Status Severity Reaction(s) Onset Inactive Treating Comm ents Source Name Type Date Date Clinician IODINE DRUG Active Unknown-Cmnt Univ ers INGREDI 6-18 ity of 00:00: [place] 00 Medical Branch Iodine Propensi Active Unknown - Unive rs ty to See comments 6-18 ity of adverse 00:00: [place] reaction 00 Medical s Branch SEAFOOD/ Food Active High Swelling 2017- Univer s FISH 0-18 ity of 00:00: [place] 00 Medical Branch Seafood/ Propensi Active Swelling 2017-07 Univ ers Fish ty to 0-18 ity of adverse 00:00: [place] reaction 00 Medical s Branch Social History Social Habit Start Date Stop Date Quantity Comments Source History of Snuff User University of tobacco use [place] [facility] History SDOH University o f Alcohol Frequency [facility] edical Branch History SDOH University o f Alcohol Std [place] [facility] Drinks [facility] History SDOH University o f Alcohol Binge [place] [facility] Exposure to 2021-11-11 2021-11-21 Not sure University of SARS-CoV-2 00:00:00 11:53:00 [facility] (event) Branch Alcohol intake 2021-11-21 2021-11-21 Current drinker Unive rsity of 00:00:00 00:00:00 of alcohol [facility] (finding) Branch Tobacco use and 2021-01-06 2021-01-06 User of smokeless Un iversity of exposure 00:00:00 00:00:00 tobacco [place] [facility] Alcohol Comment 2021-01-06 2021-01-06 only occasional Univ ersity of 00:00:00 00:00:00 [facility] Sex Ass[birth year] At [birth year] Universit y of 00:00:00 00:00:00 [facility] Smoking Status Start Date Stop Date Source Smokes tobacco daily 2021-01-06 00:00:00 Univers ity of [facility] Medications Ordered Filled Start Stop Current Ordering Indication Dosage Frequency Signature Comments Components Source Medication Medication Date Date Medication? Clinician (SIG) Name Name benzonatate 2022- Yes [id number] 200mg Take 1 Univers 200 mg 07-26 capsule by ity of capsule 00:00: 05:59 mouth 3 [place] 00 :00 (three) Medical times Branch daily as needed for Cough for up to 10 days. benzonatate 2022- Yes [id number] 200mg Take 1 Univers 200 mg 07-26 capsule by ity of capsule 00:00: 05:59 mouth 3 [place] 00 :00 (three) Medical times Branch daily as needed for Cough for up to 10 days. ondansetron 2022- Yes [id number] 4mg Take 1 Univers 4 mg tablet 07-26 tablet by it y of 00:00: 05:59 mouth [place] 00 :00 every 8 Medical (eight) Branch hours as needed for Nausea and Vomiting (N/V) for up to 5 days. ondansetron 2022- Yes [id number] 4mg Take 1 Univers 4 mg tablet 07-26 tablet by it y of 00:00: 05:59 mouth [place] 00 :00 every 8 Medical (eight) Branch hours as needed for Nausea and Vomiting (N/V) for up to 5 days. fluticasone Yes [id number] 2{spray Use 2 Univers propionate 5-03 } Sprays in ity of 50 00:00: each [place] mcg/actuati 00 nostril Medic al on nasal daily. Branch spray fexofenadin Yes [id number] 1{tbl} Take 1 Univers e-pseudoeph 5-03 tablet by ity of edrine 00:00: mouth 2 [place] (WENDI-D) 00 (two) Medical 60-120 mg times Branch per tablet daily. bromphenira Yes [id number] 5mL Take 5 mL Univers mine-pseudo 5-03 by mouth 4 it y of ephedrine-D 00:00: (four[place] (BROMFED 00 times Medical DM) 2-30-10 daily as Bran ch mg/5 mL needed for syrup Congestion /Allergies or Cough. fluticasone Yes [id number] 2{spray Use 2 Univers propionate 5-03 } Sprays in ity of 50 00:00: each [place] mcg/actuati 00 nostril Medic al on nasal daily. Branch spray fexofenadin Yes [id number] 1{tbl} Take 1 Univers e-pseudoeph 5-03 tablet by ity of edrine 00:00: mouth 2 [place] (WENDI-D) 00 (two) Medical 60-120 mg times Branch per tablet daily. bromphenira 0 Yes [id number] 5mL Take 5 mL Univers mine-pseudo 5-03 by mouth 4 it y of ephedrine-D 00:00: (four[place] (BROMFED 00 times Medical DM) 2-30-10 daily as Bran ch mg/5 mL needed for syrup Congestion /Allergies or Cough. fluticasone Yes [id number] 2{spray Use 2 Univers propionate 5-03 } Sprays in ity of 50 00:00: each [place] mcg/actuati 00 nostril Medic al on nasal daily. Branch spray fexofenadin Yes [id number] 1{tbl} Take 1 Univers e-pseudoeph 5-03 tablet by ity of edrine 00:00: mouth 2 [place] (WENDI-D) 00 (two) Medical 60-120 mg times Branch per tablet daily. fluticasone Yes [id number] 2{spray Use 2 Univers propionate 5-03 } Sprays in ity of 50 00:00: each [place] mcg/actuati 00 nostril Medic al on nasal daily. Branch spray fexofenadin 0 Yes [id number] 1{tbl} Take 1 Univers e-pseudoeph 5-03 tablet by ity of edrine 00:00: mouth 2 [place] (WENDI-D) 00 (two) Medical 60-120 mg times Branch per tablet daily. bromphenira 0 3- No [id number] 5mL Take 5 mL Univers mine-pseudo 5-03 01-05 by mouth 4 i ty of ephedrine-D 00:00: 00:00 (four) Ravinder as M (BROMFED 00 :00 times Medical DM) 2-30-10 daily as Bran ch mg/5 mL needed for syrup Congestion /Allergies or Cough. benzonatate 2021-0 Yes [id number] 100mg Take 1 Univers 100 mg 1-07 capsule by ity of capsule 00:00: mouth [place] 00 every 8 Medical (eight) Branch hours as needed for Cough. benzonatate 2021-0 2022- No [id number] 100mg Take 1 Univers 100 mg 1-07 05-03 capsule by ity of capsule 00:00: 00:00 mouth [place] 00 :00 every 8 Medical (eight) Branch hours as needed for Cough. azithromyci 2020-0 Yes [id number] 500mg Take 1 Univers n 500 mg 9-27 tablet by ity of tablet 00:00: mouth [place] 00 daily. Medical Branch benzonatate 2020-0 Yes [id number] 200mg Take 1 Univers 200 mg 9-27 capsule by ity of capsule 00:00: mouth 3 (three) Medical times Branch daily as needed for Cough. azithromyci 2020-0 Yes [id number] 500mg Take 1 Univers n 500 mg 9-27 tablet by ity of tablet 00:00: mouth [place] 00 daily. Medical Branch benzonatate 2020-0 Yes [id number] 200mg Take 1 Univers 200 mg 9-27 capsule by ity of capsule 00:00: mouth 3 (three) Medical times Branch daily as needed for Cough. azithromyci 2020-0 Yes [id number] 500mg Take 1 Univers n 500 mg 9-27 tablet by ity of tablet 00:00: mouth [place] 00 daily. Medical Branch benzonatate 2020-0 Yes [id number] 200mg Take 1 Univers 200 mg 9-27 capsule by ity of capsule 00:00: mouth 3 (three) Medical times Branch daily as needed for Cough. azithromyci 2020-0 Yes [id number] 500mg Take 1 Univers n 500 mg 9-27 tablet by ity of tablet 00:00: mouth [place] 00 daily. Medical Branch azithromyci 2020-0 Yes [id number] 500mg Take 1 Univers n 500 mg 9-27 tablet by ity of tablet 00:00: mouth [place] 00 daily. Medical Branch azithromyci 2021-0 Yes [id number] 500mg Take 1 Univers n 500 mg - tablet by ity of tablet 00:00: mouth [place] 00 daily. Medical Branch azithromyci 2022- No [id number] 500mg Take 1 Univers n 500 mg -17 08- tablet by ity o f tablet 00:00: 00:00 mouth [place] 00 :00 daily. Medical Branch benzonatate 2021- No [id number] 200mg Take 1 Univers 200 mg -15 12- capsule by ity of capsule 00:00: 00:00 mouth 3 [place] 00 :00 (three) Medical times Branch daily as needed for Cough. ondansetron 2020- No [id number] 4mg Take 1 Univers 4 mg tablet 04-15 tablet by it y of 00:00: 04:59 mouth [place] 00 :00 every 8 Medical (eight) Branch hours for 5 days. bromphenira 2020- No [id number] 5mL Take 5 mL Univers mine-pseudo 03-11 by mouth 4 i ty of ephedrine-D 00:00: 00:00 (four) Ravinder as M (BROMFED 00 :00 times Medical DM) 2-30-10 daily as Bran ch mg/5 mL needed for syrup Congestion /Allergies or Cough. escitalopra Yes [id number] 10mg Take 1 Univers m oxalate 6-18 tablet by ity o f 10 mg 00:00: mouth [place] tablet 00 daily. Medical Branch escitalopra Yes [id number] 10mg Take 1 Univers m oxalate 6-18 tablet by ity o f 10 mg 00:00: mouth [place] tablet 00 daily. Medical Branch escitalopra Yes [id number] 10mg Take 1 Univers m oxalate 6-18 tablet by ity o f 10 mg 00:00: mouth [place] tablet 00 daily. Medical Branch escitalopra Yes [id number] 10mg Take 1 Univers m oxalate 6-18 tablet by ity o f 10 mg 00:00: mouth [place] tablet 00 daily. Medical Branch escitalopra Yes [id number] 10mg Take 1 Univers m oxalate 6-18 tablet by ity o f 10 mg 00:00: mouth [place] tablet 00 daily. Medical Branch escitalopra Yes [id number] 10mg Take 1 Univers m oxalate -18 tablet by ity o f 10 mg 00:00: mouth [place] tablet 00 daily. Medical Branch escitalopra 2022- No [id number] 10mg Take 1 Univers m oxalate 6-18 07-26 tablet by ity of 10 mg 00:00: 00:00 mouth [place] tablet 00 :00 daily. Medical Branch Vital Signs Vital Name Observation Time Observation Value Comments Source Systolic blood 2022-07-26 15:36:00 120 mm[Hg] Univer sity of [facility] Diastolic blood 2022-07-26 15:36:00 77 mm[Hg] [facility] Heart rate 2022-07-26 15:36:00 86 /min Universi ty [facility] Body temperature 2022-07-26 15:36:00 37.11 Mulu [facility] Respiratory rate 2022-07-26 15:36:00 16 /min [facility] Body height 2022-07-26 15:36:00 175.3 cm Universi ty [facility] Body weight 2022-07-26 15:36:00 124.785 kg Universi ty [facility] BMI 2022-07-26 15:36:00 40.63 kg/m2 Universi ty [facility] Oxygen saturation in 2022-07-26 15:36:00 97 /min [facility] Arterial blood by [facility] Pulse oximetry Branch Systolic blood 2021-11-21 16:58:00 112 mm[Hg] Univer sity of [facility] Diastolic blood 2021-11-21 16:58:00 73 mm[Hg] Unive rsity of [facility] Heart rate 2021-11-21 16:58:00 75 /min Universi ty of [facility] Body temperature 2021-11-21 16:58:00 36.61 Mulu [facility] Respiratory rate 2021-11-21 16:58:00 18 /min [facility] Body height 2021-11-21 16:58:00 175.3 cm Universi ty [facility] Body weight 2021-11-21 16:58:00 124.785 kg Universi ty [facility] BMI 2021-11-21 16:58:00 40.63 kg/m2 Universi ty of [place] [facility] Oxygen saturation in 2021-11-21 16:58:00 98 /min University of Arterial blood by [facility] Pulse oximetry Branch Systolic blood 2021-07-28 17:50:00 124 mm[Hg] Univer sity of pressure [place] [facility] Diastolic blood 2021-07-28 17:50:00 82 mm[Hg] Unive rsity of pressure [place] [facility] Heart rate 2021-07-28 17:50:00 86 /min Universi ty of [place] [facility] Body temperature 2021-07-28 17:50:00 37.22 Mulu Univ ersity of [place] [facility] Respiratory rate 2021-07-28 17:50:00 18 /min Univ ersity of [place] [facility] Body height 2021-07-28 17:50:00 177.8 cm Universi ty of [place] [facility] Body weight 2021-07-28 17:50:00 130.545 kg Universi ty of [place] [facility] BMI 2021-07-28 17:50:00 41.30 kg/m2 Universi ty of [place] [facility] Oxygen saturation in 2021-07-28 17:50:00 98 /min University of Arterial blood by [facility] Pulse oximetry Branch Systolic blood 2021-04-17 16:21:00 115 mm[Hg] Univer sity of pressure [place] [facility] Diastolic blood 2021-04-17 16:21:00 75 mm[Hg] Unive rsity of pressure [place] [facility] Heart rate 2021-04-17 16:21:00 91 /min Universi ty of [place] [facility] Body temperature 2021-04-17 16:21:00 36.94 Mulu Univ ersity of [place] [facility] Body height 2021-04-17 16:21:00 177.8 cm Universi ty of [place] [facility] Body weight 2021-04-17 16:21:00 129.729 kg Universi ty of [place] [facility] BMI 2021-04-17 16:21:00 41.04 kg/m2 Universi ty of [place] [facility] Oxygen saturation in 2021-04-17 16:21:00 99 /min University of Arterial blood by [facility] Pulse oximetry Branch Procedures Procedure Date / Time Performed Performing Clinician [facility] ASSIGNMENT OF BENEFITS 2022-07-26 15:32:01 Doctor Unassigned, No [facility] Name [facility] Encounters Start End Encounter Admission Attending Care Care Encounter Source Date/Time Date/Time Type Type Clinicians Facility Department ID 2022-07-27 2022-07-27 SUNNY Gordillo 1.2.840.114 [id number] Univers 00:00:00 00:00:00 (Out) Nida RAUSCH [id number] it y of HOSPITAL [id number] Ravinder as [id number] [facility] [address] [place] 2022-07-26 2022-07-26 Outpatient R [facility] [id number] Univers 09:40:00 09:59:32 VALERIY walker [facility] 2022-07-26 2022-07-26 Valeriy Pearson [facility] 1.2.840 .114 [id number] Univers 09:40:00 09:59:32 Care Unknown, [facility] HEALTH [id number] ity of [place] [id number] Ravinder as BRAYDON?BLEA [phone] [address] MEDICAL OFFICE BUILDING 2022-07-26 2022-07-26 Orders Doctor SUNNY 1.2.840.114 [id number] Univers 00:00:00 00:00:00 Only UnassignedSHALOM [id number] ity of [place] HOSPITAL [id number] Ravinder as [phone] [facility] 009 [place] 2021-11-21 2021-11-21 [facility] 1.2.840.114 [id number] Univers 12:00:00 12:20:00 Care [facility] [id number] i ty of [place] [id number] Ravinder as BRAYDON?BLEA [id number] [address] MEDICAL OFFICE BUILDING 2021-11-21 2021-11-21 Outpatient R [facility] [id number] Univers 12:00:00 12:00:00 ROSA valenzuela f [facility] 2021-09-19 2021-09-19 Nurse Nurse, [facility] 1.2.840.114 [id number] Univers 11:45:00 12:05:00 Visit Unknown, [facility] HEALTH [id number] ity of Valeriy [place] [id number] [place] BRAYDON?BLEA [id number] [address] OFF[address] [facility] 2021-09-19 2021-09-19 Outpatient R BRENT [facility] [id number] Univers 12:20:00 12:02:41 VALERIY ruthanton walker [facility] 2021-07-28 2021-07-28 [facility] [id number] Univers 11:40:00 12:19:26 ROSA ruthanton walker [facility] 2021-07-28 2021-07-28 Urgent Shakira Rivera [facility] 1.2.840.114 [id number] Univers 11:40:00 12:19:26 Care [facility] [id number] ity of [place] [id number] Ravinder as BRAYDON?BLEA [id number] [address] OFF[address] [facility] 2021-07-20 2021-07-20 Laboratory Only, Ang Db Test [facility] 1.2.8 40.114 [id number] Univers 16:30:00 16:45:00 Only Ashley Agnes [facility] [id number] ity of [place] [id number] Ravinder as BRAYDON?BLEA [id number] [address] OFF[address] [facility] 2021-07-20 2021-07-20 Outpatient R ASHLEY [facility] [id number] Univers 16:30:00 16:30:00 AGNES [facility] 2021-04-24 2021-04-24 Outpatient PRIV PRIV [id number] [facility] 00:00:00 00:00:00 [id number] Medica l 2021-04-17 2021-04-17 [facility] [id number] Univers 11:30:00 11:40:43 SHAKIRA ashford [facility] 2021-04-17 2021-04-17 Office Pedrito [facility] 1.2.840.114 [id number] Univers 11:11:48 11:26:48 Visit [facility] [id number] it y of [place] [id number] Ravinder as Braydon?Blea [phone] Tn celso russell [address] Medical Office [facility] 2021-04-15 2021-04-15 Outpatient R JONNIE [facility] [id number] Univers 09:20:00 09:29:38 SEVEN [facility] 2021-04-15 2021-04-15 Urgent [facility] 1.2.840.114 [id number] Univers 09:10:16 09:29:38 Care [facility] [id number] it y of [place] [id number] Ravinder as Braydon?Blea [phone] [facility] [address] Medical Office [facility] 2021-04-15 2021-04-15 [facility] 1.2.840.114 [id number] Univers 00:00:00 00:00:00 [facility] [id number] it y of [place] [id number] Ravinder as Braydon?Blea [phone] [facility] [address] Medical Office [facility] 2021-03-13 2021-03-13 Outpatient R LOU [facility] [id number] Univers 10:20:00 10:20:00 ROSA walker [facility] 2021-03-11 2021-03-11 Outpatient R AARON [facility] [id number] Univers 13:40:00 13:40:00 ATTENDING makeda [facility] 2021-03-06 2021-03-06 Outpatient Kanika MAJOR [facility] [id number] Univers 08:15:00 08:15:00 SHAKIRA ashford [facility] 2021-02-03 2021-02-03 Outpatient Kanika MAJOR [facility] [id number] Univers 09:15:00 09:15:00 SHAKIRA ashford [facility] 2021-02-02 2021-02-02 Outpatient Kanika MAJOR [facility] [id number] Univers 11:30:00 11:30:00 [facility] 2021-01-06 2021-01-06 Outpatient [facility] [id number] Univers 13:30:00 13:30:00 [facility] 2020-09-12 2020-09-12 Outpatient Cha MMG [facility] [id number] [place] 12:27:00 12:27:00 0222 Medical Group 2020-04-22 2020-04-22 Outpatient [facility] [id number] [place] 09:39:00 09:39:00 HANA [id number] [facility] Program Results This patient has no known results.
--- NOTE | 2022-07-30 12:41 | RAD REPORT ---
EXAM DESCRIPTION: RAD - Chest Pa And Lat (2 Views) - 07/30/2022 12:35 pm CLINICAL HISTORY: COUGH Chest pain. COMPARISON: Chest Single View dated 01/20/2022; Chest Single View dated 08/30/2020; Chest Pa And Lat (2 Views) dated 07/27/2017; Chest Single View dated 02/27/2017 FINDINGS: The lungs are clear. The heart is normal in size. No displaced fractures. IMPRESSION: No acute or concerning finding suspected.
--- NOTE | 2022-07-30 15:04 | ER ---
Nurse's Notes [facility] Name: Salvador Fuchs Age: 32 yrs Sex: Male : 1990 Arrival Date: 07/30/2022 Time: 11:32 Bed 9 Private MD: Diagnosis: Vomiting;Diarrhea, unspecified;Weakness;Acute upper respiratory infection, unspecified Presentation: 07/30 11:52 Chief complaint: Patient states: vomiting, dizziness, stomach feels like it's turning , iw COVID was negative on , had fever and diarrhea on Saturday , was not tested for flu at that time. Coronavirus screen: Client presents with at least one sign or symptom that may indicate coronavirus-19. Ebola Screen: Patient negative for fever greater than or equal to 101.5 degrees Fahrenheit, and additional compatible Ebola Virus Disease symptoms Patient denies exposure to infectious person. Patient denies travel to an Ebola-affected area in the 21 days before illness onset. No symptoms or risks identified at this time. Initial Sepsis Screen: Does the patient meet any 2 criteria? No. Patient's initial sepsis screen is negative. Does the patient have a suspected source of infection? No. Patient's initial sepsis screen is negative. Risk Assessment: Do you want to hurt yourself or someone else? Patient reports no desire to harm self or others. Onset of symptoms was July 25, 2022. 11:52 Method Of Arrival: Ambulatory 11:52 Acuity: KATHLEEN 3 iw Historical: - Allergies: 11:54 SEAFOOD; iw 11:54 SHELLFISH; iw - Home Meds: 11:54 None [Active]; iw - PMHx: 11:54 Back pain; compound fracture to L1; iw - PSHx: 11:54 Appendectomy; Cholecystectomy; iw - Immunization history:: Adult Immunizations Client reports having NOT received the Covid vaccine. - Social history:: Smoking status: Reported history of juuling and/or vaping. - Family history:: not pertinent. Vital Signs: 11:52 BP 120 / 65; Pulse 76; Resp 18; Temp 97.3; Pulse Ox 97% on R/A; Weight 124.74 kg; iw Height 5 ft. 10 in. (177.80 cm); 11:52 Body Mass Index 39.46 (124.74 kg, 177.80 cm) iw ED Course: 11:32 Patient arrived in ED. rg4 11:40 Ethan Trent MD is Attending Physician. [facility] 11:54 Triage completed. 11:54 Arm band placed on. 12:35 Chest Pa And Lat (2 Views) XRAY In Process Unspecified. EDHI 15:11 Franca Pulido, RN is Primary Nurse. [facility] Administered Medications: 15:10 Drug: Zithromax (azithromycin) 500 mg Route: PO; [facility] 15:10 Not Given (Duplicate Order): Zofran (Ondansetron) 4 mg IVP once; over 2 minutes [facility] 15:13 Drug: Ondansetron 4 mg Route: PO; [facility] Outcome: 15:03 Discharge ordered by . [facility] 15:31 Patient left the ED. [facility] Signatures: Dispatcher [employer] EDHI Ethan Trent MD MD cha Williams, Irene, RN Helena Sanz rg4 Franca Pulido, OUMAR RN [facility]
--- NOTE | 2022-07-30 15:04 | EDPHYS ---
Physician Documentation [facility] Name: Salvador Fuchs Age: 32 yrs Sex: Male : 1990 Arrival Date: 07/30/2022 Time: 11:32 Bed 9 Private MD: BOBBI Physician Ethan Trent HPI: 07/30 14:57 This 32 yrs old Male presents to ER via Ambulatory with complaints of Cough, ely Diarrhea, Dizziness, Body Aches, Vomiting. 14:57 The patient or guardian reports cough, described as mild, difficulty breathing. Onset: ely The symptoms/episode began/occurred 3 day(s) ago. Severity of symptoms: At their worst the symptoms were mild, in the emergency department the symptoms are unchanged. Modifying factors: The symptoms are alleviated by nothing, the symptoms are aggravated by nothing. Associated signs and symptoms: Pertinent positives: diarrhea, rhinorrhea, sore throat, vomiting. The patient has experienced similar episodes in the past, a few times. Historical: - Allergies: 11:54 SEAFOOD; iw 11:54 SHELLFISH; iw - Home Meds: 11:54 None [Active]; iw - PMHx: 11:54 Back pain; compound fracture to L1; iw - PSHx: 11:54 Appendectomy; Cholecystectomy; iw - Immunization history:: Adult Immunizations Client reports having NOT received the Covid vaccine. - Social history:: Smoking status: Reported history of juuling and/or vaping. - Family history:: not pertinent. ROS: 14:57 Constitutional: Negative for fever, chills, and weight loss, Eyes: Negative for injury, ely pain, redness, and discharge, ENT: Negative for injury, pain, and discharge, Neck: Negative for injury, pain, and swelling, Cardiovascular: Negative for chest pain, palpitations, and edema, Back: Negative for injury and pain, : Negative for injury, bleeding, discharge, and swelling, MS/Extremity: Negative for injury and deformity, Skin: Negative for injury, rash, and discoloration, Neuro: Negative for headache, weakness, numbness, tingling, and seizure, Psych: Negative for depression, anxiety, suicide ideation, homicidal ideation, and hallucinations, Allergy/Immunology: Negative for hives, rash, and allergies, Endocrine: Negative for neck swelling, polydipsia, polyuria, polyphagia, and marked weight changes, Hematologic/Lymphatic: Negative for swollen nodes, abnormal bleeding, and unusual bruising. 14:57 Respiratory: Positive for cough, with no reported sputum. 14:57 Abdomen/GI: Positive for abdominal pain, nausea and vomiting, diarrhea. 14:57 Neuro: Positive for gait disturbance. Exam: 14:57 Constitutional: This is a well developed, well nourished patient who is awake, alert, ely and in no acute distress. Head/Face: Normocephalic, atraumatic. Eyes: Pupils equal round and reactive to light, extra-ocular motions intact. Lids and lashes normal. Conjunctiva and sclera are non-icteric and not injected. Cornea within normal limits. Periorbital areas with no swelling, redness, or edema. ENT: Nares patent. No nasal discharge, no septal abnormalities noted. Tympanic membranes are normal and external auditory canals are clear. Oropharynx with no redness, swelling, or masses, exudates, or evidence of obstruction, uvula midline. Mucous membranes moist. Neck: Trachea midline, no thyromegaly or masses palpated, and no cervical lymphadenopathy. Supple, full range of motion without nuchal rigidity, or vertebral point tenderness. No Meningismus. Chest/axilla: Normal chest wall appearance and motion. Nontender with no deformity. No lesions are appreciated. Cardiovascular: Regular rate and rhythm with a normal S1 and S2. No gallops, murmurs, or rubs. Normal PMI, no JVD. No pulse deficits. Respiratory: Lungs have equal breath sounds bilaterally, clear to auscultation and percussion. No rales, rhonchi or wheezes noted. No increased work of breathing, no retractions or nasal flaring. Abdomen/GI: Soft, non-tender, with normal bowel sounds. No distension or tympany. No guarding or rebound. No evidence of tenderness throughout. Back: No spinal tenderness. No costovertebral tenderness. Full range of motion. Male : Normal genitalia with no discharge or lesions. Skin: Warm, dry with normal turgor. Normal color with no rashes, no lesions, and no evidence of cellulitis. MS/ Extremity: Pulses equal, no cyanosis. Neurovascular intact. Full, normal range of motion. Neuro: Awake and alert, GCS 15, oriented to person, place, time, and situation. Cranial nerves II-XII grossly intact. Motor strength 5/5 in all extremities. Sensory grossly intact. Cerebellar exam normal. Normal gait. Psych: Awake, alert, with orientation to person, place and time. Behavior, mood, and affect are within normal limits. 14:57 ECG was reviewed by the Attending Physician. Vital Signs: 11:52 BP 120 / 65; Pulse 76; Resp 18; Temp 97.3; Pulse Ox 97% on R/A; Weight 124.74 kg; iw Height 5 ft. 10 in. (177.80 cm); 11:52 Body Mass Index 39.46 (124.74 kg, 177.80 cm) iw MDM: 12:06 Patient medically screened. [facility] 15:00 Differential Diagnosis: Obstructed Airway Bronchitis Influenza Upper Respiratory ely Infection Sinusitis Pharyngitis Otitis Media Asthma Exacerbation Viral Syndrome Pneumonia. Data reviewed: vital signs, nurses notes, lab test result(s), radiologic studies, plain films. Consideration of Admission/Observation Patient was admitted/placed on observation. Escalation of care including admission/observation considered. Management of patient was discussed with the following: Primary Care Provider: PCP. I considered the following discharge prescriptions or medication management in the emergency department Medications were administered in the Emergency Department. See MAR. Independent interpretation of the following test(s) in the Emergency Department X-Ray: My interpretation is COUGH. Discussion of test interpretation with radiology: I had a discussion with radiology regarding a test interpretation. COUGH. Test considered but Not performed: Ultrasound CT , LABS. Care significantly affected by the following chronic conditions: CBP. 07/30 11:41 Order name: COVID-19/FLU A+B [facility] 07/30 11:41 Order name: Chest Pa And Lat (2 Views) XRAY; Complete Time: 14:03 [facility] 07/30 14:29 Order name: EKG; Complete Time: 14:29 [facility] 07/30 14:29 Order name: EKG - Nurse/Tech; Complete Time: 15:13 [facility] 07/30 14:57 Order name: PO challenge; Complete Time: 15:13 [facility] EC:57 Rate is 68 beats/min. Rhythm is regular. QRS [place] is Normal. [place] interval is normal. QRS ely interval is normal. QT interval is normal. No Q waves. T waves are Normal. No ST changes noted. Clinical impression: NSR w/ Non-specific ST/T Changes and No evidence of ischemia. Interpreted by me. Reviewed by me. Administered Medications: 15:10 Drug: Zithromax (azithromycin) 500 mg Route: PO; [facility] 15:10 Not Given (Duplicate Order): Zofran (Ondansetron) 4 mg IVP once; over [address] [facility] 15:13 Drug: Ondansetron 4 mg Route: PO; [email or web address] Disposition Summary: 07/30/22 15:03 Discharge Ordered Location: Home [facility] Problem: new [facility] Symptoms: have improved [facility] Condition: Stable ely Diagnosis - Vomiting ely - Diarrhea, unspecified ely - Weakness ely - Acute upper respiratory infection, unspecified ely Followup: [facility] - With: Private Physician - When: 2 - 3 days - Reason: Recheck today's complaints, Continuance of care, Re-evaluation by your physician Discharge Instructions: - Discharge Summary Sheet [facility] - Food Choices to Help Relieve Diarrhea, Adult ely - Diarrhea, Adult ely - Upper Respiratory Infection, Adult ely - Weakness ely - Cool Mist Vaporizer ely - Diarrhea, Adult, Zbni-dn-Vire ely - Cough, Adult, Umeo-lb-[id number] ely - Weakness, Scgu-cy-Hlym ely - Cough, Adult ely - Vomiting, Adult ely Forms: - Medication Reconciliation Form [facility] - Thank You Letter [facility] - Antibiotic Education [facility] - Prescription Opioid Use [facility] Prescriptions: - Zofran 4 mg Oral Tablet - take 1 tablet by ORAL route every 12 hours As needed; 20 tablet; Refills: 0, ely Product Selection Permitted - Zithromax Z-Colton 250 mg Oral Tablet - take 1 tablet by ORAL route as directed for 5 days Day 1 - take two (2) tablets [facility] one time. Day 2, 3, 4 , 5 take one (1) tablet once daily.; 6 tablet; Refills: 0, Product Selection Permitted Signatures: Dispatcher [employer] Ethan Mohamud MD MD cha Williams, Irene, RN RN iw Rees, Jessica, RN RN jh5
[2022-07-30] MEDS ORDERED: AZITHROMYCIN 250 MG TAB ONE (15:09)
[2022-07-30] MEDS ORDERED: ONDANSETRON 4 MG (ODT) TAB ONE ×2 (15:09→15:11)
[2022-07-30 15:17] LABS: SARS-COV-2 RT PCR NEGATIVE (NEGATIVE)
[2022-07-30 17:33] VITALS: BP 120/65; TEMP 97.3; O2SAT 97
--- NOTE | 2022-07-31 14:24 | EKG ---
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
== END 2022-07-30 15:31 | disposition home or self-care (01) ==
LOC: ER 11:28
DX: J06.9 Acute upper respiratory infection, unspecified (principal); R11.10 Vomiting, unspecified; R19.7 Diarrhea, unspecified; R53.1 Weakness; Z20.822 Contact with and (suspected) exposure to COVID-19; Z91.013 Allergy to seafood
CPT/HCPCS: 93005; 0240U; 71046; 99283; Q0144; Q0162 ×2

== ENCOUNTER 2022-10-08 11:22 | Emergency (ER) | payer BC ==
--- OUTSIDE RECORDS SUMMARY | 2022-10-08 11:50 | XMS REPORT | Continuity of Care Document ---
:1990 Author Organization [facility] t Address [address] [facility] [address] [place] [address] Care Team Providers Name Role Phone SHAKIRA MAJOR Primary Care Physician Unavailable Nida Franco RN Attending Clinician Unavailable VALERIY BRANHAM Attending Clinician Unavailable Valeriy Marte Attending Clinician Unknown, Attending Attending Clinician Unavailable Doctor Unassigned, [place] Attending Clinician Unavailable Rosa Villanueva Attending Clinician ROSA BLAKE Attending Clinician Unavailable [facility] Attending Clinician Unavailable King JUAN LUIS MD, James C Attending Clinician Only, Rafy Manley Test Attending Clinician Unavailable Agnes Sadler Attending Clinician AGNES RAMIREZ Attending Clinician Unavailable SHAKIRA MAJOR Attending Clinician Unavailable Shakira Major MD Attending Clinician SEVEN MUSTAFA Attending Clinician Unavailable Seven Nick Attending Clinician UNKNOWN, ATTENDING Attending Clinician Unavailable Cha Attending Clinician Unavailable PAMELA Attending Clinician Unavailable Cha Admitting Clinician Unavailable PAMELA Admitting Clinician Unavailable Payers Payer Name Policy Type Policy Number Effective Date Expiration Date S radha [employer] [place] [id number] 2020 EMPLOYEE PLAN 00:00:00 Problems Condition Condition Condition Status Onset Resolution Last Treating Co mments Source Name Details Category Date Date Treatment Clinician Date No known No known Disease Unive rs active active ity of problems problems [facility] Allergies, Adverse Reactions, Alerts Allergy Allergy Status [...] of Snuff User University of tobacco use [facility] History SDOH University o f Alcohol Frequency [facility] edical Branch History SDOH University o f Alcohol Std [facility] Dr[facility] History SDOH University o f Alcohol Binge [facility] Exposure to 2021-11-11 2021-11-21 Not sure University of SARS-CoV-2 00:00:00 11:53:00 [facility] (event) Branch Alcohol intake 2021-11-21 2021-11-21 Current drinker Unive rsity of 00:00:00 00:00:00 of alcohol [facility] (finding) Branch Tobacco use and 2021-01-06 2021-01-06 User of smokeless Un iversity of exposure 00:00:00 00:00:00 tobacco [facility] Alcohol Comment 2021-01-06 2021-01-06 only occasional Univ ersity of 00:00:00 00:00:00 [facility] Sex [birth year] Universit y of 00:00:00 00:00:00 [facility] Smoking Status Start Date Stop Date Source Smokes tobacco daily 2021-01-06 00:00:00 Univers ity of [facility] Medications Ordered Filled Start Stop Current Ordering Indication Dosage Frequency Signature Comments Components Source Medication Medication Date Date Medication? Clinician (SIG) Name Name benzonatate 2022- Yes [id number] 200mg Take 1 Univers 200 mg 07-26 capsule by ity of capsule 00:00: 05:59 mouth 3 [place] 00 :00 (three) Medical times Branch daily as needed for Cough for up to 10 days. benzonatate 2022- Yes [id number] 200mg Take 1 Univers 200 mg 07-26 capsule by ity of capsule 00:00: 05:59 mouth 3 [place] 00 :00 (three) Medical times Branch daily as needed for Cough for up to 10 days. ondansetron 2022- Yes [id number] 4mg Take 1 Univers 4 mg tablet 07-26 tablet by it y of 00:00: 05:59 mouth [place] 00 :00 every 8 Medical (eight) Branch hours as needed for Nausea and Vomiting (N/V) for up to 5 days. ondansetron 2022- Yes [id number] 4mg Take 1 Univers 4 mg tablet 07-26 tablet by it y of 00:00: 05:59 mouth [place] 00 :00 every 8 Medical (eight) Branch hours as needed for Nausea and Vomiting (N/V) for up to 5 days. fluticasone Yes [id number] 2{spray Use 2 Univers propionate 5-03 } Sprays in ity of 50 00:00: each [place] mcg/actuati 00 nostril Medic al on nasal daily. Branch spray fexofenadin Yes [id number] 1{tbl} Take 1 Univers e-pseudoeph 5-03 tablet by ity of edrine 00:00: mouth 2 [place] (WENDI-D) 00 (two) Medical 60-120 mg times Branch per tablet daily. bromphenira Yes [id number] 5mL Take 5 mL Univers mine-pseudo 5-03 by mouth 4 it y of ephedrine-D 00:00: (four[place] (BROMFED 00 times Medical DM) 2-30-10 daily as Bran ch mg/5 mL needed for syrup Congestion /Allergies or Cough. fluticasone Yes [id number] 2{spray Use 2 Univers propionate 5-03 } Sprays in ity of 50 00:00: each [place] mcg/actuati 00 nostril Medic al on nasal daily. Branch spray fexofenadin Yes [id number] 1{tbl} Take 1 Univers e-pseudoeph 5-03 tablet by ity of edrine 00:00: mouth 2 [place] (WENDI-D) 00 (two) Medical 60-120 mg times Branch per tablet daily. bromphenira 0 Yes [id number] 5mL Take 5 mL Univers mine-pseudo 5-03 by mouth 4 it y of ephedrine-D 00:00: (four[place] (BROMFED 00 times Medical DM) 2-30-10 daily as Bran ch mg/5 mL needed for syrup Congestion /Allergies or Cough. fluticasone Yes [id number] 2{spray Use 2 Univers propionate 5-03 } Sprays in ity of 50 00:00: each [place] mcg/actuati 00 nostril Medic al on nasal daily. Branch spray fexofenadin Yes [id number] 1{tbl} Take 1 Univers e-pseudoeph 5-03 tablet by ity of edrine 00:00: mouth 2 [place] (WENDI-D) 00 (two) Medical 60-120 mg times Branch per tablet daily. fluticasone Yes [id number] 2{spray Use 2 Univers propionate 5-03 } Sprays in ity of 50 00:00: each [place] mcg/actuati 00 nostril Medic al on nasal daily. Branch spray fexofenadin 0 Yes [id number] 1{tbl} Take 1 Univers e-pseudoeph 5-03 tablet by ity of edrine 00:00: mouth 2 [place] (WENDI-D) 00 (two) Medical 60-120 mg times Branch per tablet daily. bromphenira 0 3- No [id number] 5mL Take 5 mL Univers mine-pseudo 5-03 01-05 by mouth 4 i ty of ephedrine-D 00:00: 00:00 (four) Ravinder as M (BROMFED 00 :00 times Medical DM) 2-30-10 daily as Bran ch mg/5 mL needed for syrup Congestion /Allergies or Cough. benzonatate 2021-0 Yes [id number] 100mg Take 1 Univers 100 mg 1-07 capsule by ity of capsule 00:00: mouth [place] 00 every 8 Medical (eight) Branch hours as needed for Cough. benzonatate 2021-0 2022- No [id number] 100mg Take 1 Univers 100 mg 1-07 05-03 capsule by ity of capsule 00:00: 00:00 mouth [place] 00 :00 every 8 Medical (eight) Branch hours as needed for Cough. azithromyci 2020-0 Yes [id number] 500mg Take 1 Univers n 500 mg 9-27 tablet by ity of tablet 00:00: mouth [place] 00 daily. Medical Branch benzonatate 2020-0 Yes [id number] 200mg Take 1 Univers 200 mg 9-27 capsule by ity of capsule 00:00: mouth 3 (three) Medical times Branch daily as needed for Cough. azithromyci 2020-0 Yes [id number] 500mg Take 1 Univers n 500 mg 9-27 tablet by ity of tablet 00:00: mouth [place] 00 daily. Medical Branch benzonatate 2020-0 Yes [id number] 200mg Take 1 Univers 200 mg 9-27 capsule by ity of capsule 00:00: mouth 3 (three) Medical times Branch daily as needed for Cough. azithromyci 2020-0 Yes [id number] 500mg Take 1 Univers n 500 mg 9-27 tablet by ity of tablet 00:00: mouth [place] 00 daily. Medical Branch benzonatate 2020-0 Yes [id number] 200mg Take 1 Univers 200 mg 9-27 capsule by ity of capsule 00:00: mouth 3 (three) Medical times Branch daily as needed for Cough. azithromyci 2020-0 Yes [id number] 500mg Take 1 Univers n 500 mg 9-27 tablet by ity of tablet 00:00: mouth [place] 00 daily. Medical Branch azithromyci 2020-0 Yes [id number] 500mg Take 1 Univers n 500 mg 9-27 tablet by ity of tablet 00:00: mouth [place] 00 daily. Medical Branch azithromyci 2021-0 Yes [id number] 500mg Take 1 Univers n 500 mg - tablet by ity of tablet 00:00: mouth [place] 00 daily. Medical Branch azithromyci 2022- No [id number] 500mg Take 1 Univers n 500 mg -17 08- tablet by ity o f tablet 00:00: 00:00 mouth [place] 00 :00 daily. Medical Branch benzonatate 2021- No [id number] 200mg Take 1 Univers 200 mg -15 12- capsule by ity of capsule 00:00: 00:00 mouth 3 [place] 00 :00 (three) Medical times Branch daily as needed for Cough. ondansetron 2020- No [id number] 4mg Take 1 Univers 4 mg tablet 04-15 tablet by it y of 00:00: 04:59 mouth [place] 00 :00 every 8 Medical (eight) Branch hours for 5 days. bromphenira 2020- No [id number] 5mL Take 5 mL Univers mine-pseudo 03-11 by mouth 4 i ty of ephedrine-D 00:00: 00:00 (four) [place]inder as M (BROMFED 00 :00 times Medical DM) 2-30-10 daily as Bran ch mg/5 mL needed for syrup Congestion /Allergies or Cough. escitalopra Yes [id number] 10mg Take 1 Univers m oxalate 6-18 tablet by ity o f 10 mg 00:00: mouth [place] tablet 00 daily. Medical Branch escitalopra Yes [id number] 10mg Take 1 Univers m oxalate 6-18 tablet by ity o f 10 mg 00:00: mouth [place] tablet 00 daily. Medical Branch escitalopra Yes [id number] 10mg Take 1 Univers m oxalate 6-18 tablet by ity o f 10 mg 00:00: mouth [place] tablet 00 daily. Medical Branch escitalopra Yes [id number] 10mg Take 1 Univers m oxalate 6-18 tablet by ity o f 10 mg 00:00: mouth [place] tablet 00 daily. Medical Branch escitalopra Yes [id number] 10mg Take 1 Univers m oxalate 6-18 tablet by ity o f 10 mg 00:00: mouth [place] tablet 00 daily. Medical Branch escitalopra Yes [id number] 10mg Take 1 Univers m oxalate -18 tablet by ity o f 10 mg 00:00: mouth [place] tablet 00 daily. Medical Branch escitalopra 2022- No [id number] 10mg Take 1 Univers m oxalate 6-18 07-26 tablet by ity of 10 mg 00:00: 00:00 mouth [place] tablet 00 :00 daily. Medical Branch Vital Signs Vital Name Observation Time Observation Value Comments Source Systolic blood 2022-07-26 15:36:00 120 mm[Hg] Univer sity of [facility] Diastolic blood 2022-07-26 15:36:00 77 mm[Hg] [facility] Heart rate 2022-07-26 15:36:00 86 /min Universi ty [facility] Body temperature 2022-07-26 15:36:00 37.11 Mulu [facility] Respiratory rate 2022-07-26 15:36:00 16 /min [facility] Body height 2022-07-26 15:36:00 175.3 cm Universi ty [facility] Body weight 2022-07-26 15:36:00 124.785 kg Universi ty [facility] BMI 2022-07-26 15:36:00 40.63 kg/m2 Universi ty [facility] Oxygen saturation in 2022-07-26 15:36:00 97 /min [facility] Arterial blood by [facility] Pulse oximetry Branch Systolic blood 2021-11-21 16:58:00 112 mm[Hg] Univer sity of [facility] Diastolic blood 2021-11-21 16:58:00 73 mm[Hg] Unive rsity of [facility] Heart rate 2021-11-21 16:58:00 75 /min Universi ty of [facility] Body temperature 2021-11-21 16:58:00 36.61 Mulu [facility] Res[facility] rate 2021-11-21 16:58:00 18 /min [facility] Body height 2021-11-21 16:58:00 175.3 cm Universi ty [facility] Body weight 2021-11-21 16:58:00 124.785 kg Universi ty [facility] BMI 2021-11-21 16:58:00 40.63 kg/m2 Universi ty of [facility] Oxygen saturation in 2021-11-21 16:58:00 98 /min University of Arterial blood by [facility] Pulse oximetry Branch Systolic blood 2021-07-28 17:50:00 124 mm[Hg] Univer sity of pressure [facility] Diastolic blood 2021-07-28 17:50:00 82 mm[Hg] Unive rsity of pressure [facility] Heart rate 2021-07-28 17:50:00 86 /min Universi ty of [facility] Body temperature 2021-07-28 17:50:00 37.22 Mulu Univ ersity of [facility] Respiratory rate 2021-07-28 17:50:00 18 /min Univ ersity of [facility] Body height 2021-07-28 17:50:00 177.8 cm Universi ty of [facility] Body weight 2021-07-28 17:50:00 130.545 kg Universi ty of [facility] BMI 2021-07-28 17:50:00 41.30 kg/m2 Universi ty of [place] [facility] Oxygen saturation in 2021-07-28 17:50:00 98 /min University of Arterial blood by [facility] Pulse oximetry Branch Systolic blood 2021-04-17 16:21:00 115 mm[Hg] Univer sity of pressure [facility] Diastolic blood 2021-04-17 16:21:00 75 mm[Hg] Unive rsity of pressure [facility] Heart rate 2021-04-17 16:21:00 91 /min Universi ty of [facility] Body temperature 2021-04-17 16:21:00 36.94 Mulu Univ ersity of [facility] Body height 2021-04-17 16:21:00 177.8 cm Universi ty of [facility] Body weight 2021-04-17 16:21:00 129.729 kg Universi ty of [facility] BMI 2021-04-17 16:21:00 41.04 kg/m2 Universi ty of [facility] Oxygen saturation in 2021-04-17 16:21:00 99 /min University of Arterial blood by [facility] Pulse oximetry Branch Procedures Procedure Date / Time Performed Performing Clinician [facility] e ASSIGNMENT OF BENEFITS 2022-07-26 15:32:01 Doctor Unassigned, No [facility] Name [facility] Encounters Start End Encounter Admission Attending Care Care Encounter Source Date/Time Date/Time Type Type Clinicians Facility Department ID 2022-07-27 2022-07-27 SUNNY Gordillo 1.2.840.114 [id number] Univers 00:00:00 00:00:00 (Out) Nida RAUSCH 350.1.13.10 it y of HOSPITAL 4.2.7.2.686 Rav[place] as [id number] [facility] 019 [place] 2022-07-26 2022-07-26 [facility] [id number] Univers 09:40:00 09:59:32 VALERIY walker [facility] 2022-07-26 2022-07-26 Valeriy Pearson [facility] 1.2.840 .114 [id number] Univers 09:40:00 09:59:32 Care Unknown, [facility] HEALTH [id number] ity of [place] [id number] Ravinder as BRAYDON?BLEA [id number] [address] MEDICAL OFFICE BUILDING 2022-07-26 2022-07-26 Orders Doctor SUNNY 1.2.840.114 [id number] Univers 00:00:00 00:00:00 Only UnassignedSHALOM 350.1.13.10 ity of [place] [facility] 4.2.7.2.686 Ravinder as [id number] [facility] 009 [place] 2021-11-21 2021-11-21 [facility] 1.2.840.114 [id number] Univers 12:00:00 12:20:00 Care [facility] [id number] i ty of [place] [id number] Ravinder as BRAYDON?BLEA [phone] [address] MEDICAL OFFICE BUILDING 2021-11-21 2021-11-21 Outpatient R [facility] [id number] Univers 12:00:00 12:00:00 ROSA valenzuela f [facility] 2021-09-19 2021-09-19 Nurse Nurse, [facility] 1.2.840.114 [id number] Univers 11:45:00 12:05:00 Visit Unknown, [facility] HEALTH 350.1.13.10 ity of Valeriy [place] [id number] [place] BRAYDON?BLEA [id number] [address] OFFICE [facility] 2021-09-19 2021-09-19 Outpatient R BRENT [facility] [id number] Univers 12:20:00 12:02:41 VALERIY ruthanton walker [facility] 2021-07-28 2021-07-28 [facility] [id number] Univers 11:40:00 12:19:26 ROSA ruthanton walker [facility] 2021-07-28 2021-07-28 Urgent Shakira Rivera [facility] 1.2.840.114 [id number] Univers 11:40:00 12:19:26 Care [facility] [id number] ity of [place] 4.2.7.2.686 Ravinder as BRAYDON?BLEA [id number] [address] OFFICE [facility] 2021-07-20 2021-07-20 Laboratory Only, Ang Db Test [facility] 1.2.8 40.114 [id number] Univers 16:30:00 16:45:00 Only Ashley Agnes [facility] 350.1.13.10 ity of [place] 4.2.7.2.686 Ravinder as BRAYDON?BLEA [id number] [address] OFFICE [facility] 2021-07-20 2021-07-20 Outpatient R ASHLEY [facility] [id number] Univers 16:30:00 16:30:00 AGNES [facility] 2021-04-24 2021-04-24 Outpatient PRIV PRIV [id number] [facility] 00:00:00 00:00:00 [id number] Medica l 2021-04-17 2021-04-17 [facility] [id number] Univers 11:30:00 11:40:43 SHAKIRA [facility]ford [facility] 2021-04-17 2021-04-17 Office Pedrito [facility] 1.2.840.114 [id number] Univers 11:11:48 11:26:48 Visit [facility] 350.1.13.10 it y of [place] 4.2.7.2.686 Ravinder as Braydon?Blea [id number] Wy celso russell 044 [place] [facility] Office [facility] 2021-04-15 2021-04-15 Outpatient R JONNIE [facility] [id number] Univers 09:20:00 09:29:38 SEVEN [facility] 2021-04-15 2021-04-15 Urgent [facility] 1.2.840.114 [id number] Univers 09:10:16 09:29:38 Care [facility] [id number] it y of [place] 4.2.7.2.686 Ravinder as Braydon?Blea [id number] [facility] [address] [place] [facility] Office [facility] 2021-04-15 2021-04-15 [facility] 1.2.840.114 [id number] Univers 00:00:00 00:00:00 [facility] [id number] it y of [place] 4.2.7.2.686 Ravinder as Braydon?Blea [id number] [facility] [address] [place] [facility] Office [facility] 2021-03-13 2021-03-13 Outpatient R LOU [facility] [id number] Univers 10:20:00 10:20:00 ROSA walker [facility] 2021-03-11 2021-03-11 Outpatient R AARON [facility] [id number] Univers 13:40:00 13:40:00 ATTENDING makeda [facility] 2021-03-06 2021-03-06 Outpatient Kanika MAJOR [facility] [id number] Univers 08:15:00 08:15:00 SHAKIRA ashford [facility] 2021-02-03 2021-02-03 Outpatient Kanika MAJOR [facility] [id number] Univers 09:15:00 09:15:00 SHAKIRA ashford [facility] 2021-02-02 2021-02-02 Outpatient Kanika MAJOR [facility] [id number] Univers 11:30:00 11:30:00 [facility] 2021-01-06 2021-01-06 Outpatient [facility] [id number] Univers 13:30:00 13:30:00 [facility] 2020-09-12 2020-09-12 Outpatient Cah MMG [facility] [id number] [place] 12:27:00 12:27:00 [id number] [facility] Group 2020-04-22 2020-04-22 Outpatient [facility] [id number] [place] 09:39:00 09:39:00 HANA [id number] [facility] Program Results This patient has no known results.
[2022-10-08] MEDS ORDERED: NA CHLORIDE 0.9% 1,000 ML ONE (11:51)
[2022-10-08] MEDS ORDERED: ASPIRIN 81 MG CHEWABLE TABLET ONE (11:51)
[2022-10-08] MEDS ORDERED: FAMOTIDINE 20 MG/2 ML VIAL IV ONE (11:51)
[2022-10-08 12:04] LABS: Protime INR 1.03
[2022-10-08 12:10] LABS: Absolute Lymphocytes (CBC) 3.6 K/uL (0.7-4.9); Hematocrit 41.8 % (39.6-49.0); MCV 82.7 fL (80-100); MPV 9.2 fL (7.6-11.3); RBC Red Blood Cell Count 5.05 M/uL (4.33-5.43)
[2022-10-08 12:21] LABS: SARS-CoV-2 Antigen Rapid Res Negative (Negative)
[2022-10-08 12:26] LABS: ALT/SGPT 41 U/L (16-61); AST/SGOT 17 U/L (15-37); Alkaline Phosphatase 103 U/L (45-117); BUN Blood Urea Nitrogen 9 mg/dL (7-18); Bicarbonate 27 mEq/L (21-32); Bilirubin Total 0.3 mg/dL (0.2-1.0); Glomerular Filtration Rate 98 ml/min (=/>90); Glucose Level 97 mg/dL (74-106); Lipase 47 U/L (13-75); Magnesium 2.4 mg/dL (1.6-2.4); NT PRO-BNP 66 pg/mL (<125); Potassium 4.4 mEq/L (3.5-5.1); Protein, Total 7.7 g/dL (6.4-8.2); Sodium Level 138 mEq/L (136-145); Troponin High Sensitivity 3.3 pg/mL (<58.9)
[2022-10-08 12:34] LABS: Bilirubin Direct < 0.1 mg/dL (0-0.2)
--- NOTE | 2022-10-08 12:47 | RAD REPORT ---
EXAM DESCRIPTION: Kobi Single View10/08/2022 12:20 pm CLINICAL HISTORY: Chest pain COMPARISON: July 2022 FINDINGS: The lungs appear clear of acute infiltrate. The heart is normal size IMPRESSION: No acute abnormalities displayed
--- NOTE | 2022-10-08 13:17 | ER ---
Nurse's Notes [facility] Name: Salvador Fuchs Age: 32 yrs Sex: Male : 1990 Arrival Date: 10/08/2022 Time: 11:24 Bed 8 Private MD: Diagnosis: Chest pain, unspecified;Obesity, unspecified Presentation: 10/08 11:35 Chief complaint: EMS states: Chest pain that began about 2-3 hours ago, with pain that vg1 gradually increased, stated dull/sharp pain that radiates to the Left shoulder. States lightheaded and dizziness, denies N/V. Coronavirus screen: Vaccine status: Patient reports being unvaccinated. Client denies travel out of the [place] in the last 14 days. Ebola Screen: Patient negative for fever greater than or equal to 101.5 degrees Fahrenheit, and additional compatible Ebola Virus Disease symptoms Patient denies exposure to infectious person. Initial Sepsis Screen: Does the patient meet any 2 criteria? No. Patient's initial sepsis screen is negative. Does the patient have a suspected source of infection? No. Patient's initial sepsis screen is negative. Risk Assessment: Do you want to hurt yourself or someone else? Patient reports no desire to harm self or others. Onset of symptoms was October 08, 2022. 11:35 Method Of Arrival: EMS: [facility] vg1 11:35 Acuity: KATHLEEN 3 vg1 Triage Assessment: 11:37 General: Appears in no apparent distress. uncomfortable, Behavior is anxious. Pain: vg1 Complains of pain in chest Pain radiates to left shoulder Pain currently is 6 out of 10 on a pain scale. Pain began 3 hours ago. EENT: No signs and/or symptoms were reported regarding the EENT system. Neuro: Level of Consciousness is awake, alert, obeys commands, Oriented to person, place, time, situation. Cardiovascular: Patient's skin is warm and dry. Respiratory: Airway is patent Respiratory effort is even, unlabored. GI: Patient currently denies nausea, vomiting. : No signs and/or symptoms were reported regarding the genitourinary system. Derm: Skin is pink, warm \T\ dry. Musculoskeletal: Circulation, motion, and sensation intact. Historical: - Allergies: 11:37 SEAFOOD; vg1 11:37 SHELLFISH; vg1 11:37 NKDA; vg1 - PMHx: 11:37 Back pain; compound fracture to L1; vg1 - PSHx: 11:37 Appendectomy; Cholecystectomy; vg1 - Immunization history:: Client reports having NOT received the Covid vaccine. - Social history:: Smoking status: Patient reports the use of cigarette tobacco products, smokes one-half pack cigarettes per day, Patient uses alcohol, occasionally. - Family history:: not pertinent. Screenin:40 [facility] ED Fall Risk Assessment (Adult) History of falling in the last 3 months, vg1 including since admission No falls in past 3 months (0 pts) Confusion or Disorientation No (0 pts) Intoxicated or Sedated No (0 pts) Impaired Gait No (0 pts) Mobility Assist Device Used No (0 pt) Altered Elimination No (0 pt) Score/Fall Risk Level 0 - 2 = Low Risk Oriented to surroundings, Maintained a safe environment, Educated pt \T\ family on fall prevention, incl call for assistance when getting out of bed, Assessed \T\ reinforced patient's understanding of fall precautions. Abuse screen: Denies threats or abuse. Denies injuries from another. Nutritional screening: No deficits noted. Tuberculosis screening: No symptoms or risk factors identified. Assessment: 11:40 Reassessment: SEE TRIAGE. vg1 12:50 Reassessment: Patient appears in no apparent distress at this time. Patient and/or vg1 family updated on plan of care and expected duration. Pain level reassessed. Patient is alert, oriented x 3, equal unlabored respirations, skin warm/dry/pink. Patient states feeling better. 13:20 Reassessment: pt up for d/c, currently waiting for repeat trop due at 1400. vg1 13:50 Reassessment: Patient appears in no apparent distress at this time. Patient and/or vg1 family updated on plan of care and expected duration. Pain level reassessed. Patient is alert, oriented x 3, equal unlabored respirations, skin warm/dry/pink. 14:57 Reassessment: Patient appears in no apparent distress at this time. No changes from vg1 previously documented assessment. Patient and/or family updated on plan of care and expected duration. Pain level reassessed. Patient is alert, oriented x 3, equal unlabored respirations, skin warm/dry/pink. Vital Signs: 11:35 BP 116 / 69; Pulse 80; Resp 16; Temp 98.3(O); Pulse Ox 100% on R/A; Weight 119.29 kg vg1 (R); Height 5 ft. 9 in. ; Pain 6/10; 12:50 BP 100 / 65; Pulse 65; Resp 16; Pulse Ox 100% on R/A; vg1 13:30 BP 115 / 72; Pulse 54; Resp 16; Pulse Ox 100% on R/A; vg1 14:30 BP 112 / 66; Pulse 66; Resp 20; Pulse Ox 100% on R/A; vg1 11:35 Body Mass Index 38.84 (119.29 kg, 175.26 cm) vg1 11:35 Pain Scale: Adult vg1 ED Course: 11:24 Patient arrived in ED. eb 11:24 Ethan Trent MD is Attending Physician. ely 11:25 Karina Lee RN is Primary Nurse. vg1 11:37 Triage completed. vg1 11:37 Arm band placed on. vg1 11:40 Patient has correct armband on for positive identification. Placed in gown. Bed in low vg1 position. Call light in reach. Side rails up X 1. Client placed on continuous cardiac and pulse oximetry monitoring. NIBP monitoring applied. 11:40 No provider procedures requiring assistance completed. Patient maintains SpO2 vg1 saturation greater than 95% on room air. 11:50 Initial lab(s) drawn, by me, sent to lab. Inserted saline lock: 20 gauge in right vg1 antecubital area, using aseptic technique. Blood collected. 12:00 SARS RAPID Sent. vg1 12:21 XRAY Chest (1 view) In Process Unspecified. EDMS 13:16 Jonnathan Waite MD is Referral Physician. ely 14:58 IV discontinued, intact, bleeding controlled, No redness/swelling at site. Pressure mb9 dressing applied. Administered Medications: 11:55 Drug: NS 0.9% IV 1000 ml Route: IV; Rate: 125 ml/hr; Site: right antecubital; vg1 14:59 Follow up: IV Status: Completed infusion; IV Intake: 300ml vg1 11:56 Drug: Famotidine IVP 20 mg Route: IVP; Site: right antecubital; vg1 13:18 Follow up: Response: No adverse reaction; Marked relief of symptoms vg1 11:57 Drug: Aspirin PO Chewable Tablet 324 mg Route: PO; vg1 13:18 Follow up: Response: No adverse reaction; Marked relief of symptoms vg1 Medication: 11:40 VIS not applicable for this client. vg1 Intake: 14:59 IV: 300ml; Total: 300ml. vg1 Outcome: 13:16 Discharge ordered by . ely 14:57 Discharged to home ambulatory. petar 14:57 Condition: stable 14:57 Discharge instructions given to patient, Instructed on discharge instructions, follow up and referral plans. Demonstrated understanding of instructions, follow-up care, medications, Prescriptions given X 2. 14:58 Patient left the ED. vg1 Signatures: Dispatcher [employer] EDMS Ethan Trent MD MD cha Botello, Elizabeth eb Garcia, Victoria, RN RN vg1 Rosio Seals RN RN mb9
--- NOTE | 2022-10-08 13:17 | EDPHYS ---
Physician Documentation [facility] Name: Salvador Fuchs Age: 32 yrs Sex: Male : 1990 Arrival Date: 10/08/2022 Time: 11:24 Bed 8 Private MD: ED Physician Ethan Trent HPI: 10/08 12:30 This 32 yrs old Male presents to ER via EMS with complaints of Chest Pain. ely 12:30 The patient or guardian reports chest pain that is located primarily in the substernal ely area, epigastric area. The pain radiates to both shoulders. Associated signs and symptoms: The patient has no apparent associated signs or symptoms. The chest pain is described as aching. Duration: The patient or guardian reports a single episode, that is still ongoing, and unchanged. Modifying factors: The symptoms are alleviated by remaining still, the symptoms are aggravated by movement, palpation of area. Severity of pain: At its worst the pain was mild in the emergency department the pain is unchanged. The patient has not experienced similar symptoms in the past. Historical: - Allergies: 11:37 SEAFOOD; vg1 11:37 SHELLFISH; vg1 11:37 NKDA; vg1 - PMHx: 11:37 Back pain; compound fracture to L1; vg1 - PSHx: 11:37 Appendectomy; Cholecystectomy; vg1 - Immunization history:: Client reports having NOT received the Covid vaccine. - Social history:: Smoking status: Patient reports the use of cigarette tobacco products, smokes one-half pack cigarettes per day, Patient uses alcohol, occasionally. - Family history:: not pertinent. ROS: 12:30 Constitutional: Negative for fever, chills, and weight loss, Eyes: Negative for injury, ely pain, redness, and discharge, ENT: Negative for injury, pain, and discharge, Neck: Negative for injury, pain, and swelling, Respiratory: Negative for shortness of breath, cough, wheezing, and pleuritic chest pain, Abdomen/GI: Negative for abdominal pain, nausea, vomiting, diarrhea, and constipation, Back: Negative for injury and pain, : Negative for injury, bleeding, discharge, and swelling, MS/Extremity: Negative for injury and deformity, Skin: Negative for injury, rash, and discoloration, Neuro: Negative for headache, weakness, numbness, tingling, and seizure, Psych: Negative for depression, anxiety, suicide ideation, homicidal ideation, and hallucinations, Allergy/Immunology: Negative for hives, rash, and allergies, Endocrine: Negative for neck swelling, polydipsia, polyuria, polyphagia, and marked weight changes, Hematologic/Lymphatic: Negative for swollen nodes, abnormal bleeding, and unusual bruising. 12:30 Cardiovascular: Positive for chest pain. Exam: 12:30 Constitutional: This is a well developed, well nourished patient who is awake, alert, ely and in no acute distress. Head/Face: Normocephalic, atraumatic. Eyes: Pupils equal round and reactive to light, extra-ocular motions intact. Lids and lashes normal. Conjunctiva and sclera are non-icteric and not injected. Cornea within normal limits. Periorbital areas with no swelling, redness, or edema. ENT: Nares patent. No nasal discharge, no septal abnormalities noted. Tympanic membranes are normal and external auditory canals are clear. Oropharynx with no redness, swelling, or masses, exudates, or evidence of obstruction, uvula midline. Mucous membranes moist. Neck: Trachea midline, no thyromegaly or masses palpated, and no cervical lymphadenopathy. Supple, full range of motion without nuchal rigidity, or vertebral point tenderness. No Meningismus. Cardiovascular: Regular rate and rhythm with a normal S1 and S2. No gallops, murmurs, or rubs. Normal PMI, no JVD. No pulse deficits. Respiratory: Lungs have equal breath sounds bilaterally, clear to auscultation and percussion. No rales, rhonchi or wheezes noted. No increased work of breathing, no retractions or nasal flaring. Abdomen/GI: Soft, non-tender, with normal bowel sounds. No distension or tympany. No guarding or rebound. No evidence of tenderness throughout. Back: No spinal tenderness. No costovertebral tenderness. Full range of motion. Male : Normal genitalia with no discharge or lesions. Skin: Warm, dry with normal turgor. Normal color with no rashes, no lesions, and no evidence of cellulitis. MS/ Extremity: Pulses equal, no cyanosis. Neurovascular intact. Full, normal range of motion. Neuro: Awake and alert, GCS 15, oriented to person, place, time, and situation. Cranial nerves II-XII grossly intact. Motor strength 5/5 in all extremities. Sensory grossly intact. Cerebellar exam normal. Normal gait. Psych: Awake, alert, with orientation to person, place and time. Behavior, mood, and affect are within normal limits. 12:30 Neck: External neck: is normal, C-spine: appears grossly normal, no acute changes, Thyroid: appears normal, no acute changes, Trachea: is midline with no obvious abnormalities, ROM/movement: is normal, Lymph nodes: no appreciated lymphadenopathy. 12:37 ECG was reviewed by the Attending Physician. [facility] Vital Signs: 11:35 BP 116 / 69; Pulse 80; Resp 16; Temp 98.3(O); Pulse Ox 100% on R/A; Weight 119.29 kg vg1 (R); Height 5 ft. 9 in. ; Pain 6/10; 12:50 BP 100 / 65; Pulse 65; Resp 16; Pulse Ox 100% on R/A; vg1 13:30 BP 115 / 72; Pulse 54; Resp 16; Pulse Ox 100% on R/A; vg1 14:30 BP 112 / 66; Pulse 66; Resp 20; Pulse Ox 100% on R/A; vg1 11:35 Body Mass Index 38.84 (119.29 kg, 175.26 cm) vg1 11:35 Pain Scale: Adult vg1 MDM: 11:24 Patient medically screened. [facility] 12:33 HEART Score: History: Slightly Suspicious (0), ECG: Normal (0), Age: < or = 45 years ely (0), Risk Factors: 1 or 2 risk factors (1), [+ Family HX] [Obesity] Troponin: < or = 1 x Normal Limit (0), Total Score = 1. MARIBELL Risk Score: TOTAL SCORE = 0. Data reviewed: vital signs, nurses notes, lab test result(s), EKG, radiologic studies, plain films. Consideration of Admission/Observation Escalation of care including admission/observation considered. I considered the following discharge prescriptions or medication management in the emergency department Medications were administered in the Emergency Department. See MAR. Test considered but Not performed: CT: CT CHEST. 13:16 Differential diagnosis: abnormal EKG, acute myocardial infarction, acute pericarditis, ely anxiety, coronary artery disease chest wall pain, congestive heart failure Cholelithiasis costochondritis, hiatal hernia, pancreatitis, pneumonia, pneumothorax, stable angina, unstable angina. 10/08 11:36 Order name: Basic Metabolic Panel; Complete Time: 13:14 [facility] 10/08 11:36 Order name: CBC with Diff; Complete Time: 12:27 [facility] 10/08 11:36 Order name: LFT's; Complete Time: 13:14 [facility] 10/08 11:36 Order name: Magnesium; Complete Time: 13:14 [facility] 10/08 11:36 Order name: NT PRO-BNP; Complete Time: 13:14 [facility] 10/08 11:36 Order name: PT-INR; Complete Time: 12:27 [facility] 10/08 11:36 Order name: Troponin HS; Complete Time: 13:14 [facility] 10/08 11:36 Order name: SARS RAPID; Complete Time: 12:27 [facility] 10/08 11:36 Order name: Lipase; Complete Time: 13:14 [facility] 10/08 12:28 Order name: D-Dimer; Complete Time: 13:15 [facility] 10/08 13:30 Order name: Urine Microscopic Only; Complete Time: 14:35 10/08 14:02 Order name: Troponin HS: 1400 repeat draw 10/08 14:07 Order name: Urinalysis 10/08 11:36 Order name: XRAY Chest (1 view); Complete Time: 13:14 [facility] 10/08 11:36 Order name: EKG; Complete Time: 11:37 [facility] 10/08 11:36 Order name: Cardiac monitoring; Complete Time: 11:40 [facility] 10/08 11:36 Order name: EKG - Nurse/Tech; Complete Time: 11:40 [facility] 10/08 11:36 Order name: IV Saline Lock; Complete Time: 12:00 [facility] 10/08 11:36 Order name: Labs collected and sent; Complete Time: 12:00 [facility] 10/08 11:36 Order name: O2 Per Protocol; Complete Time: 11:40 [facility] 10/08 11:36 Order name: O2 Sat Monitoring; Complete Time: 11:40 [facility] 10/08 11:36 Order name: Urine Dipstick-Ancillary (obtain specimen); Complete Time: 13:43 [facility] EC:37 Rate is 88 beats/min. Rhythm is regular. QRS [place] is Normal. IN interval is normal. QRS ely interval is normal. QT interval is normal. No Q waves. T waves are Normal. No ST changes noted. Clinical impression: Normal ECG and No evidence of ischemia. Interpreted by me. Reviewed by me. Administered Medications: 11:55 Drug: NS 0.9% IV 1000 ml Route: IV; Rate: 125 ml/hr; Site: right antecubital; vg1 14:59 Follow up: IV Status: Completed infusion; IV Intake: 300ml vg1 11:56 Drug: Famotidine IVP 20 mg Route: IVP; Site: right antecubital; vg1 13:18 Follow up: Response: No adverse reaction; Marked relief of symptoms vg1 11:57 Drug: Aspirin PO Chewable Tablet 324 mg Route: PO; vg1 13:18 Follow up: Response: No adverse reaction; Marked relief of symptoms vg1 Disposition Summary: 10/08/22 13:16 Discharge Ordered Location: Home ely Problem: new ely Symptoms: have improved ely Condition: Stable ely Diagnosis - Chest pain, unspecified ely - Obesity, unspecified ely Followup: ely - With: Private Physician - When: 2 - 3 days - Reason: Recheck today's complaints, Continuance of care, Re-evaluation by your physician Followup: ely - With: - When: 2 - 3 days - Reason: Recheck today's complaints, Continuance of care, Re-evaluation by your physician Discharge Instructions: - Discharge Summary Sheet ely - Nonspecific Chest Pain, Adult ely - Chest Wall Pain ely - Obesity, Adult ely - Chest Wall Pain, [id number] ely - Nonspecific Chest Pain, Adult, [id number] ely - Aspirin and Your Heart [facility] Forms: - Medication Reconciliation Form ely - Thank You Letter ely - Antibiotic Education ely - Prescription Opioid Use ely - Work release form vg1 Prescriptions: - Ibuprofen 600 mg Oral Tablet - take 1 tablet by ORAL route every 6 hours As needed take with food; 30 tablet; ely Refills: 0, Product Selection Permitted - Pepcid 20 mg Oral Tablet - take 1 tablet by ORAL route every 12 hours for 10 days; 20 tablet; Refills: 0, [facility] Product Selection Permitted Signatures: Dispatcher [employer] EDMS Ethan Trent MD MD cha Garcia, Victoria RN RN vg1 Corrections: (The following items were deleted from the chart) 13:31 12:28 Troponin High Sensitivity+C.LAB.BRZ ordered. EDMS EDMS 13:31 13:14 Troponin High Sensitivity+C.LAB.BRZ reviewed. ely EDMS
[2022-10-08 13:47] LABS: Urine Bacteria None Seen /HPF (<20); Urine Mucus Slight /HPF (None Seen); Urine RBC None Seen /HPF (None Seen)
[2022-10-08 14:59] LABS: Urine Bacteria None Seen /HPF (<20); Urine RBC <5 /HPF (None Seen)
[2022-10-08 15:01] LABS: Urine Clarity Clear (Clear); Urine Color Yellow (Yellow)
[2022-10-08 15:02] LABS: Urine Ascorbic Acid Negative (Negative); Urine Bilirubin Negative (Negative); Urine Blood Negative (Negative); Urine Glucose Negative (Negative); Urine Protein Negative (Negative); Urine Urobilinogen Normal (Normal)
[2022-10-08 16:37] VITALS: TEMP 98.3; O2SAT 100
[2022-10-08 16:41] VITALS: BP 112/66
--- NOTE | 2022-10-09 13:01 | EKG ---
Test Date: 2022-10-08 Test Time: 11:34:55 Bed Bug Exterminator: YONATHAN MEASUREMENT RESULTS: Intervals: Rate: 78 AR: 152 QRSD: 90 QT: 368 QTc: 419 [place]: P: 43 AR: 152 QRS: -4 T: 30 INTERPRETIVE STATEMENTS: Normal sinus rhythm Normal ECG Compared to ECG 07/30/2022 14:35:45 Incomplete right bundle-branch block no longer present Electronically Signed On 10-09-22 12:58:30 CDT by Jonnathan Waite
== END 2022-10-08 14:58 | disposition home or self-care (01) ==
LOC: ER 11:22
DX: R07.89 Other chest pain (principal); E66.9 Obesity, unspecified; Z68.38 Body mass index [BMI] 38.0-38.9, adult; Z20.822 Contact with and (suspected) exposure to COVID-19; F17.210 Nicotine dependence, cigarettes, uncomplicated; Z91.013 Allergy to seafood
CPT/HCPCS: 85025; 80048; 36415; 83735; 85610; 85379; 80076; 81015; 84484 ×2; 83690; 83880; 71045; 87811; J7030; 93005

== ENCOUNTER 2023-04-30 05:39 | Emergency (ER) | payer BC ==
--- OUTSIDE RECORDS SUMMARY | 2023-04-30 05:43 | XMS REPORT | Continuity of Care Document ---
:1990 Author Organization [facility] t Address [address] [place] [address] [place] [id number] Care Team Providers Name Role Phone Pcp, Patient Does Not Have A Primary Care Physician [id number] Nida Franco RN Attending Clinician Unavailable VALERIY BRANHAM Attending Clinician Unavailable Valeriy Marte Attending Clinician Unknown, Attending Attending Clinician Unavailable Doctor Unassigned, [place] Attending Clinician Unavailable Rosa Villanueva Attending Clinician [...] Attending Clinician Unavailable Cha Attending Clinician Unavailable AMBREEN_BETTY Attending Clinician Unavailable Cha Admitting Clinician Unavailable ELIANE_BETTY Admitting Clinician Unavailable Payers Payer Name Policy Type Policy Number Effective Date Expiration Date Marilyn garcia [employer] [place] [id number] 2020 EMPLOYEE PLAN 00:00:00 Problems Condition Condition Condition Status Onset Resolution Last Treating Co mments Source Name Details Category Date Date Treatment Clinician Date No known No known Disease Unive rs active active ity of problems problems [facility] Allergies, Adverse Reactions, Alerts Allergy Allergy Status [...] Start Date Stop Date Quantity Comments Source Sexual orientation [facility] [place] [facility] [place] History of tobacco Snuff User Univer [facility]ity of use [place] [facility] History SDOH University o f Alcohol Frequency [facility] edical Branch History SDOH University o f Alcohol Std Drinks [place] [facility] History SDSD University o f Alcohol Binge [place] [facility] History of Social 2022-07-26 2022-07-26 Univers ity of function 00:00:00 00:00:00 [facility] Exposure to 2021-11-11 2021-11-21 Not sure University of SARS-CoV-2 (event) 00:00:00 11:53:00 [facility] Tobacco use and 2021-01-06 2021-01-06 User of smokeless Un iversity of exposure 00:00:00 00:00:00 tobacco [facility] Alcohol intake 2021-01-06 2021-01-06 Current drinker Unive rsity of 00:00:00 00:00:00 of alcohol [facility] (finding) [place] Alcohol Comment 2021-01-06 2021-01-06 only occasional Univ ersity of 00:00:00 00:00:00 [facility] Sex Ass[birth year] At [birth year] Universit y of 00:00:00 00:00:00 [facility] Smoking Status Start Date Stop Date Source Smokes tobacco daily 2021-01-06 00:00:00 Univers ity of [facility] Medications Ordered Filled Start Stop Current Ordering Indication Dosage Frequency Signature Comments Components Source Medication Medication Date Date Medication? Clinician (SIG) Name Name benzonatate 2022- No [id number] 200mg Take 1 Univers 200 mg 07-26 capsule by ity of capsule 00:00: 05:59 mouth 3 [place] 00 :00 (three) Medical times Branch daily as needed for Cough for up to 10 days. benzonatate 2022- No [id number] 200mg Take 1 Univers 200 mg 07-26 capsule by ity of capsule 00:00: 05:59 mouth 3 [place] 00 :00 (three) Medical times Branch daily as needed for Cough for up to 10 days. ondansetron 2022- No [id number] 4mg Take 1 Univers 4 mg tablet 07-26 tablet by it y of 00:00: 05:59 mouth [place] 00 :00 every 8 Medical (eight) Branch hours as needed for Nausea and Vomiting (N/V) for up to 5 days. ondansetron 2022- No [id number] 4mg Take 1 Univers 4 mg tablet 07-2611 tablet by it y of 00:00: 05:59 mouth [place] 00 :00 every 8 Medical (eight) Branch hours as needed for Nausea and Vomiting (N/V) for up to 5 days. fexofenadin Yes [id number] 1{tbl} Take 1 Univers e-pseudoeph 5-03 tablet by ity of edrine 00:00: mouth 2 [place] (WENDI-D) 00 (two) Medical 60-120 mg times Branch per tablet daily. fluticasone Yes [id number] 2{spray Use 2 Univers propionate 5-03 } Sprays in ity of 50 00:00: each [place] mcg/actuati 00 nostril Medic al on nasal daily. Branch spray fexofenadin Yes [id number] 1{tbl} Take 1 Univers e-pseudoeph 5-03 tablet by ity of edrine 00:00: mouth 2 [place] (WENDI-D) 00 (two) Medical 60-120 mg times Branch per tablet daily. fluticasone Yes [id number] 2{spray Use 2 Univers propionate 5-03 } Sprays in ity of 50 00:00: each [place] mcg/actuati 00 nostril Medic al on nasal daily. Branch spray fexofenadin Yes [id number] 1{tbl} Take 1 Univers e-pseudoeph 5-03 tablet by ity of edrine 00:00: mouth 2 [place] (WENDI-D) 00 (two) Medical 60-120 mg times Branch per tablet daily. bromphenira Yes [id number] 5mL Take 5 mL Univers mine-pseudo 5-03 by mouth 4 it y of ephedrine-D 00:00: (four[place] (BROMFED 00 times Medical DM) 2-30-10 daily as Bran ch mg/5 mL needed for syrup Congestion /Allergies or Cough. fluticasone Yes [id number] 2{spray Use 2 Univers propionate 5-03 } Sprays in ity of 50 00:00: each [place] mcg/actuati 00 nostril Medic al on nasal daily. Branch spray fexofenadin Yes [id number] 1{tbl} Take 1 Univers e-pseudoeph 5-03 tablet by ity of edrine 00:00: mouth 2 [place] (WENDI-D) 00 (two) Medical 60-120 mg times Branch per tablet daily. bromphenira 0 Yes [id number] 5mL Take 5 mL Univers mine-pseudo 5-03 by mouth 4 it y of ephedrine-D 00:00: (four[place] (BROMFED 00 times Medical DM) 2-30-10 daily as Bran ch mg/5 mL needed for syrup Congestion /Allergies or Cough. fluticasone Yes [id number] 2{spray Use 2 Univers propionate 5-03 } Sprays in ity of 50 00:00: each [place] mcg/actuati 00 nostril Medic al on nasal daily. Branch spray bromphenira 3- No [id number] 5mL Take 5 mL Univers mine-pseudo 5-03 -05 by mouth 4 i ty of ephedrine-D 00:00: 00:00 (four) Ravinder as M (BROMFED 00 :00 times Medical DM) 2-30-10 daily as Bran ch mg/5 mL needed for syrup Congestion /Allergies or Cough. benzonatate 0 Yes [id number] 100mg Take 1 Univers 100 mg 1-07 capsule by ity of capsule 00:00: mouth [place] 00 every 8 Medical (eight) Branch hours as needed for Cough. benzonatate 2021- No [id number] 100mg Take 1 Univers 100 mg 1-07 -03 capsule by ity of capsule 00:00: 00:00 mouth [place] 00 :00 every 8 Medical (eight) Branch hours as needed for Cough. azithromyci 0 Yes [id number] 500mg Take 1 Univers n 500 mg 9-27 tablet by ity of tablet 00:00: mouth [place] 00 daily. Medical Branch benzonatate 2020-0 Yes [id number] 200mg Take 1 Univers 200 mg 9-27 capsule by ity of capsule 00:00: mouth 3 00 (three) Medical times Branch daily as needed for Cough. azithromyci 2020-0 Yes [id number] 500mg Take 1 Univers n 500 mg 9-27 tablet by ity of tablet 00:00: mouth [place] 00 daily. Medical Branch benzonatate 2020-0 Yes [id number] 200mg Take 1 Univers 200 mg 9-27 capsule by ity of capsule 00:00: mouth 3 00 (three) Medical times Branch daily as needed for Cough. azithromyci 2020-0 Yes [id number] 500mg Take 1 Univers n 500 mg 9-27 tablet by ity of tablet 00:00: mouth [place] 00 daily. Medical Branch benzonatate 2020-0 Yes [id number] 200mg Take 1 Univers 200 mg 9-27 capsule by ity of capsule 00:00: mouth 3 00 (three) Medical times Branch daily as needed for Cough. azithromyci 2020-0 Yes [id number] 500mg Take 1 Univers n 500 mg 9-27 tablet by ity of tablet 00:00: mouth [place] 00 daily. Medical Branch azithromyci Yes [id number] 500mg Take 1 Univers n 500 mg -27 tablet by ity of tablet 00:00: mouth [place] 00 daily. Medical Branch azithromyci Yes [id number] 500mg Take 1 Univers n 500 mg 9-27 tablet by ity of tablet 00:00: mouth [place] 00 daily. Medical Branch azithromyci 2022- No [id number] 500mg Take 1 Univers n 500 mg -17 08- tablet by ity o f tablet 00:00: 00:00 mouth [place] 00 :00 daily. Medical Branch benzonatate 2021- No [id number] 200mg Take 1 Univers 200 mg -15 12- capsule by ity of capsule 00:00: 00:00 mouth 3 [place] 00 :00 (three) Medical times Branch daily as needed for Cough. ondansetron 2020- No [id number] 4mg Take 1 Univers 4 mg tablet 04-15 tablet by it y of 00:00: 04:59 mouth [place] 00 :00 every 8 Medical (eight) Branch hours for 5 days. bromphenira 2020- No [id number] 5mL Take 5 mL Univers mine-pseudo 03-11 by mouth 4 i ty of ephedrine-D 00:00: 00:00 (four) Ravinder as M (BROMFED 00 :00 times Medical DM) 2-30-10 daily as Bran ch mg/5 mL needed for syrup Congestion /Allergies or Cough. escitalopra Yes [id number] 10mg Take 1 Univers m oxalate 6-18 tablet by ity o f 10 mg 00:00: mouth [place] tablet 00 daily. Medical Branch escitalopra Yes [id number] 10mg Take 1 Univers m oxalate 6-18 tablet by ity o f 10 mg 00:00: mouth [place] tablet 00 daily. Medical Branch escitalopra Yes [id number] 10mg Take 1 Univers m oxalate 6-18 tablet by ity o f 10 mg 00:00: mouth [place] tablet 00 daily. Medical Branch escitalopra Yes [id number] 10mg Take 1 Univers m oxalate 6-18 tablet by ity o f 10 mg 00:00: mouth [place] tablet 00 daily. Medical Branch escitalopra Yes [id number] 10mg Take 1 Univers m oxalate 6-18 tablet by ity o f 10 mg 00:00: mouth [place] tablet 00 daily. Medical Branch escitalopra Yes [id number] 10mg Take 1 Univers m oxalate 6-18 tablet by ity o f 10 mg 00:00: mouth [place] tablet 00 daily. Medical Branch escitalopra 2022- No [id number] 10mg Take 1 Univers m oxalate 6-18 01-05 tablet by ity of 10 mg 00:00: 00:00 mouth [place] tablet 00 :00 daily. Medical Branch escitalopra 2022- No [id number] 10mg Take 1 Univers m oxalate 6-18 01-05 tablet by ity of 10 mg 00:00: 00:00 mouth [place] tablet 00 :00 daily. Medical [place] Vital Signs Vital Name Observation Time Observation Value Comments Source Systolic blood 2022-07-26 15:36:00 120 mm[Hg] Univer sity of [facility] Diastolic blood 2022-07-26 15:36:00 77 mm[facility]Hg] [facility] 2022-07-26 15:36:00 86 /min [facility] Body temperature 2022-07-26 15:36:00 37.11 Mulu [facility] Respiratory rate 2022-07-26 15:36:00 16 /min [facility] Body height 2022-07-26 15:36:00 175.3 cm [facility] Body weight 2022-07-26 15:36:00 124.785 kg [facility] BMI 2022-07-26 15:36:00 40.63 kg/m2 [facility] Oxygen saturation in 2022-07-26 15:36:00 97 /min [facility] Arterial blood by [facility] Pulse oximetry Branch Systolic blood 2021-11-21 16:58:00 112 mm[Hg] Univer sity [facility] Diastolic blood 2021-11-21 16:58:00 73 mm[Hg] [facility] 2021-11-21 16:58:00 75 /min [facility] [place] [facility] Body temperature 2021-11-21 16:58:00 36.61 Mulu [facility] [place] [facility] Respiratory rate 2021-11-21 16:58:00 18 /min [facility] [place] [facility] Body height 2021-11-21 16:58:00 175.3 cm [facility] [place] [facility] Body weight 2021-11-21 16:58:00 124.785 kg [facility] [place] [facility] BMI 2021-11-21 16:58:00 40.63 kg/m2 [facility] [place] [facility] Oxygen saturation in 2021-11-21 16:58:00 98 /min University of Arterial blood by [facility] Pulse oximetry Branch Systolic blood 2021-07-28 17:50:00 124 mm[Hg] Univer sity of pressure [place] [facility] Diastolic blood 2021-07-28 17:50:00 82 mm[Hg] Unive rsity of [facility] Medical Branch Heart rate 2021-07-28 17:50:00 86 /min [facility] [place] [facility] Body temperature 2021-07-28 17:50:00 37.22 Mulu [facility] [place] [facility] Respiratory rate 2021-07-28 17:50:00 18 /min [facility] [place] [facility] Body height 2021-07-28 17:50:00 177.8 cm [facility] [place] [facility] Body weight 2021-07-28 17:50:00 130.545 kg [facility] [place] [facility] BMI 2021-07-28 17:50:00 41.30 kg/m2 [facility] [place] [facility] Oxygen saturation in 2021-07-28 17:50:00 98 /min University of Arterial blood by [facility] Pulse oximetry Branch Systolic blood 2021-04-17 16:21:00 115 mm[Hg] Univer sity of pressure [place] [facility] Diastolic blood 2021-04-17 16:21:00 75 mm[Hg] Unive rsity of pressure [place] [facility] Heart rate 2021-04-17 16:21:00 91 /min [facility] [place] [facility] Body temperature 2021-04-17 16:21:00 36.94 Mulu [facility] [place] [facility] Body height 2021-04-17 16:21:00 177.8 cm [facility] Body weight 2021-04-17 16:21:00 129.729 kg [facility] BMI 2021-04-17 16:21:00 41.04 kg/m2 [facility] Oxygen saturation in 2021-04-17 16:21:00 99 /min [facility] Arterial blood by [facility] Pulse oximetry [place] Procedures Procedure Date / Time Performed Performing Clinician [facility] e ASSIGNMENT OF BENEFITS 2022-07-26 15:32:01 Doctor Unassigned, No [facility] Name [facility] Encounters Start End Encounter Admission Attending Care Care Encounter Source Date/Time Date/Time Type Type Clinicians Facility Department ID 2022-07-27 2022-07-27 SUNNY Gordillo 1.2.840.114 [id number] Univers 00:00:00 00:00:00 (Out) Nida RAUSCH [id number] it y of HOSPITAL [id number] Ravinder as [id number] [facility] 019 Branch 2022-07-26 2022-07-26 Outpatient R [facility] [id number] Univers 09:40:00 09:59:32 VALERIY ashford o f [facility] 2022-07-26 2022-07-26 Urgent Valeriy Branham [facility] 1.2.840 .114 [id number] Univers 09:40:00 09:59:32 Care Unknown, [facility] [id number] ity of [place] [id number] Ravinder as BRAYDON?BLEA [phone] [place] [address] MEDICAL OFFICE BUILDING 2022-07-26 2022-07-26 Orders Doctor CORREA 1.2.840.114 [id number] Univers 00:00:00 00:00:00 Only UnassignedSHALOM [id number] ity of [place] [facility] [id number] Ravinder as [id number] [facility] 009 Branch 2021-11-21 2021-11-21 Urgent [facility] 1.2.840.114 [id number] Univers 12:00:00 12:20:00 Care [facility] [id number] i ty of [place] [id number] Ravinder as BRAYDON?BLEA [id number] [address] MEDICAL OFFICE [facility] 2021-11-21 2021-11-21 Outpatient R [facility]OU [facility] [id number] Univers 12:00:00 12:00:00 ROSA walker [facility] 2021-09-19 2021-09-19 Nurse Nurse, Ang Db Urgent Care [facility] 1.2.840.114 [id number] Univers 11:45:00 12:05:00 Visit Unknown, [facility] HEALTH [id number] ity of Valeriy Branham Diane [place] [id number] [place] BRAYDON?BLEA [id number] [address] OFFICE [facility] 2021-09-19 2021-09-19 Outpatient R [facility] [id number] Univers 12:20:00 12:02:41 VALERIY ruthanton valenzuela [facility] 2021-07-28 2021-07-28 [facility] [id number] Univers 11:40:00 12:19:26 ROSA valenzuela [facility] 2021-07-28 2021-07-28 Urgent Shakira Rivera [facility] 1.2.840.114 [id number] Univers 11:40:00 12:19:26 [facility] [id number] ity of [place] [id number] Ravinder as BRAYDON?BLEA [phone] [address] OFFICE [facility] 2021-07-20 2021-07-20 Laboratory Only, Ang Db Test [facility] 1.2.8 40.114 [id number] Univers 16:30:00 16:45:00 Only [facility] [id number] ity of [place] [id number] Ravinder as BRAYDON?BLEA [id number] [address] OFFICE [facility] 2021-07-20 2021-07-20 Outpatient R ASHLEY [facility] [id number] Univers 16:30:00 16:30:00 AGNES itanton [facility] 2021-04-24 2021-04-24 Outpatient PRIV PRIV [id number] [facility] 00:00:00 00:00:00 [id number] Medica l 2021-04-24 2021-04-24 Outpatient PRIV PRIV [id number] [facility] 00:00:00 00:00:00 [id number] Medica l 2021-04-17 2021-04-17 Outpatient R PEDRITO [facility] [id number] Univers 11:30:00 11:40:43 SHAKIRA ashford [facility] 2021-04-17 2021-04-17 [facility] 1.2.840.114 [id number] [facility] 11:11:48 11:26:48 Visit [facility] [id number] it y of [place]ils [place] [id number] Ravinder as Braydon?Blea [phone] [place] [facility] 044 [place] Medical Office [facility] 2021-04-15 2021-04-15 Outpatient R JONNIE [facility] [id number] [facility] 09:20:00 09:29:38 [facility] 2021-04-15 2021-04-15 Urgent [facility] 1.2.840.114 [id number] Univers 09:10:16 09:29:38 Care [facility] [id number] it y of [place] [id number] Ravinder as Braydon?Blea [phone] [facility] 370 [place] Medical Office Building 2021-04-15 2021-04-15 Patient Doctor SUNNY 1.2.840.114 [id number] Univers 00:00:00 00:00:00 Secure Msg Unassigned, SHAL[place] 350.1.13.10 ity of [place] [facility] [id number] Ravinder as [phone] [address] 2021-04-15 2021-04-15 Telephone Jonnie [facility] 1.2.840.114 [id number] Univers 00:00:00 00:00:00 [facility] [employer] [id number] it y of [place] [id number] Ravinder as Braydon?Blea [phone] [place] dical kney [address] [place] Medical Office Building 2021-03-13 2021-03-13 Outpatient R LOU [facility] [id number] Univers 10:20:00 10:20:00 ROSA ruthanton o f [facility] 2021-03-11 2021-03-11 Outpatient R AARON [facility] [id number] Univers 13:40:00 13:40:00 ATTENDING [facility] 2021-03-06 2021-03-06 Outpatient R PEDRITO [facility] [id number] Univers 08:15:00 08:15:00 [facility] 2021-02-03 2021-02-03 Outpatient R PEDRITO [facility] [id number] Univers 09:15:00 09:15:00 [facility] 2021-02-02 2021-02-02 [facility] [id number] Univers 11:30:00 11:30:00 [facility] 2021-01-19 2021-01-19 Patient [facility] 1.2.840.114 [id number] Univers 00:00:00 00:00:00 [facility] [id number] [facility] [id number] Ravinder as PROFESSIO [phone] [place] dichenry NAL 044 [place] OFFICE BUILDING ONE 2021-01-06 2021-01-06 Outpatient R PEDRITO [facility] [id number] Univers 13:30:00 13:30:00 [facility] 2020-09-12 2020-09-12 Outpatient Cha MMG MMG [id number] [place] 12:27:00 12:27:00 [id number] 2020-04-22 2020-04-22 Outpatient AMBREEN_FAR [facility] [id number] [place] 09:39:00 09:39:00 HANA [id number] da [facility] Health Outreac h Program Results This patient has no known results.
[2023-04-30] MEDS ORDERED: KETOROLAC 30 MG/ML INJ ONE (06:22)
[2023-04-30] MEDS ORDERED: dexAMETHasone 10 MG/ML VIAL ONE (06:22)
--- NOTE | 2023-04-30 06:41 | EDPHYS ---
Physician Documentation [facility] Name: Salvador Fuchs Age: 33 yrs Sex: Male : 1990 Arrival Date: 04/30/2023 Time: 05:39 Bed 13 Private MD: BOBBI Physician Ethan Trent HPI: 04/30 06:02 This 33 yrs old Male presents to ER via Ambulatory with complaints of Back ely Pain. 06:02 The patient presents with pain that is acute. The symptoms are located in the low back. ely Onset: The symptoms/episode began/occurred 1 day(s) ago. The pain radiates to the lumbar area, left low back and right low back. Associated signs and symptoms: The patient has no apparent associated signs or symptoms. The problem was sustained jumping. Modifying factors: The patient symptoms are alleviated by nothing, the patient symptoms are aggravated by any movement, bending. Severity of symptoms: At their worst the symptoms were mild, in the emergency department the symptoms are unchanged. The patient has not experienced similar symptoms in the past. Historical: - Allergies: 05:52 SEAFOOD; kl 05:52 SHELLFISH; kl - PMHx: 05:52 Back pain; compound fracture to L1; kl - PSHx: 05:52 Appendectomy; Cholecystectomy; kl - Immunization history:: Adult Immunizations not immunized. - Social history:: Smoking status: Patient reports the use of cigarette tobacco products, smokes one pack cigarettes per day. Reported history of juuling and/or vaping. ROS: 06:03 Constitutional: Negative for fever, chills, and weight loss, Eyes: Negative for injury, ely pain, redness, and discharge, ENT: Negative for injury, pain, and discharge, Neck: Negative for injury, pain, and swelling, Cardiovascular: Negative for chest pain, palpitations, and edema, Respiratory: Negative for shortness of breath, cough, wheezing, and pleuritic chest pain, Abdomen/GI: Negative for abdominal pain, nausea, vomiting, diarrhea, and constipation, : Negative for injury, bleeding, discharge, and swelling, MS/Extremity: Negative for injury and deformity, Skin: Negative for injury, rash, and discoloration, Neuro: Negative for headache, weakness, numbness, tingling, and seizure, Psych: Negative for depression, anxiety, suicide ideation, homicidal ideation, and hallucinations, Allergy/Immunology: Negative for hives, rash, and allergies, Endocrine: Negative for neck swelling, polydipsia, polyuria, polyphagia, and marked weight changes, Hematologic/Lymphatic: Negative for swollen nodes, abnormal bleeding, and unusual bruising, 06:03 Back: Positive for decreased range of motion, pain with movement, Exam: 06:03 Constitutional: This is a well developed, well nourished patient who is awake, alert, ely and in no acute distress. Head/Face: Normocephalic, atraumatic. Eyes: Pupils equal round and reactive to light, extra-ocular motions intact. Lids and lashes normal. Conjunctiva and sclera are non-icteric and not injected. Cornea within normal limits. Periorbital areas with no swelling, redness, or edema. ENT: Nares patent. No nasal discharge, no septal abnormalities noted. Tympanic membranes are normal and external auditory canals are clear. Oropharynx with no redness, swelling, or masses, exudates, or evidence of obstruction, uvula midline. Mucous membranes moist. Neck: Trachea midline, no thyromegaly or masses palpated, and no cervical lymphadenopathy. Supple, full range of motion without nuchal rigidity, or vertebral point tenderness. No Meningismus. Chest/axilla: Normal chest wall appearance and motion. Nontender with no deformity. No lesions are appreciated. Cardiovascular: Regular rate and rhythm with a normal S1 and S2. No gallops, murmurs, or rubs. Normal PMI, no JVD. No pulse deficits. Respiratory: Lungs have equal breath sounds bilaterally, clear to auscultation and percussion. No rales, rhonchi or wheezes noted. No increased work of breathing, no retractions or nasal flaring. Abdomen/GI: Soft, non-tender, with normal bowel sounds. No distension or tympany. No guarding or rebound. No evidence of tenderness throughout. Male : Normal genitalia with no discharge or lesions. Skin: Warm, dry with normal turgor. Normal color with no rashes, no lesions, and no evidence of cellulitis. MS/ Extremity: Pulses equal, no cyanosis. Neurovascular intact. Full, normal range of motion. Neuro: Awake and alert, GCS 15, oriented to person, place, time, and situation. Cranial nerves II-XII grossly intact. Motor strength 5/5 in all extremities. Sensory grossly intact. Cerebellar exam normal. Normal gait. Psych: Awake, alert, with orientation to person, place and time. Behavior, mood, and affect are within normal limits. 06:03 Back: pain, that is mild, that is moderate, ROM is normal, normal spinal alignment noted, CVA tenderness, is absent, muscle spasm, is appreciated in the left low back, left mid back, right mid back and right low back, Vital Signs: 05:50 BP 116 / 75; Pulse 66; Resp 18; Temp 98.2(TE); Pulse Ox 100% ; Weight 117.93 kg; Height kl 5 ft. 10 in. ; Pain 8/10; 06:29 BP 111 / 77; Pulse 64; Resp 18 S; Pulse Ox 100% on R/A; jw7 06:49 BP 118 / 65; Pulse 78; Resp 18; Pulse Ox 98% on R/A; kl 05:50 Body Mass Index 37.31 (117.93 kg, 177.8 cm) kl 05:50 Pain Scale: Adult kl MDM: 05:54 Patient medically screened. ely 06:03 Differential diagnosis: Fatigue Osteoarthritis ruptured disc, Scoliosis spinal injury, ely sprain, Ureterolithiasis. Data reviewed: vital signs, nurses notes, radiologic studies, plain films. Consideration of Admission/Observation Escalation of care including admission/observation considered. I considered the following discharge prescriptions or medication management in the emergency department Medications were administered in the Emergency Department. See MAR. Test considered but Not performed: Labs: no labs , no ct. Care significantly affected by the following chronic conditions: back , l1. 04/30 06:00 Order name: Lumbar Spine (3 Views) XRAY ely Administered Medications: 06:22 Drug: Ketorolac IM 60 mg IM once Route: IM; Site: right deltoid; jw7 06:49 Follow up: Response: No adverse reaction 06:23 Drug: Dexamethasone IM 10 mg IM once Route: IM; Site: left deltoid; jw7 06:49 Follow up: Response: No adverse reaction Disposition Summary: 04/30/23 06:40 Discharge Ordered Notes: Location: Home ely Problem: new ely Symptoms: have improved ely Condition: Stable ely Diagnosis - Low back pain ely - Other injury of muscle, fascia and tendon of lower back ely Followup: ely - With: Private Physician - When: 2 - 3 days - Reason: Recheck today's complaints, Continuance of care, Re-evaluation by your physician Followup: [facility] - With: Ariel Botello MD - When: 2 - 3 days - Reason: Recheck today's complaints, Re-evaluation by your physician Discharge Instructions: - Discharge Summary Sheet ely - Acute Back Pain, Adult ely - Chronic Back Pain ely - Musculoskeletal Pain [facility] - Radicular Pain [facility] Forms: - Work release form kl - Medication Reconciliation Form [facility] - Thank You Letter [facility] - Antibiotic Education [facility] - Prescription Opioid Use [facility] - Patient Portal Instructions [facility] - Leadership Thank You Letter [facility] Prescriptions: - acetaminophen-codeine 300-30 mg Oral tablet - take 2 tablet ORAL route every 6 hours as needed for pain; 20 tablet; Refills: ely 0, Product Selection Permitted - dexamethasone 2 mg Oral tablet - take 1 tablet ORAL route every 12 hours; 10 tablet; Refills: 0, Product [facility] Selection Permitted - Diclofenac Sodium 75 mg Oral tablet, delayed release (enteric coated) - take 1 tablet ORAL route 2 times per day; 20 tablet; Refills: 0, Product [facility] Selection Permitted - Cyclobenzaprine 5 mg Oral Tablet - take 1 tablet ORAL route 3 times per day As needed; 15 tablet; Refills: 0, [facility] Product Selection Permitted Signatures: Dispatcher [employer] Alisa Rudolph RN RN kl Anderson, Corey, MD MD cha Waits, Jodi RN RN jw7 Corrections: (The following items were deleted from the chart) 05:53 05:52 Allergies: NKDA; kl kl
--- NOTE | 2023-04-30 06:41 | ER ---
Nurse's Notes [facility] Name: Salvador Fuchs Age: 33 yrs Sex: Male : 1990 Arrival Date: 04/30/2023 Time: 05:39 Bed 13 Private MD: Diagnosis: Low back pain;Other injury of muscle, fascia and tendon of lower back Presentation: 04/30 05:50 Chief complaint: Patient states: low back pain history of back pain reports L1 FX kl history. Coronavirus screen: Vaccine status: Patient reports being unvaccinated. Ebola Screen: Patient negative for fever greater than or equal to 101.5 degrees Fahrenheit, and additional compatible Ebola Virus Disease symptoms. Initial Sepsis Screen: Does the patient meet any 2 criteria? No. Patient's initial sepsis screen is negative. Does the patient have a suspected source of infection? No. Patient's initial sepsis screen is negative. Risk Assessment: Do you want to hurt yourself or someone else? Patient reports no desire to harm self or others. 05:50 Method Of Arrival: Ambulatory kl 05:50 Acuity: KATHLEEN 4 kl 06:06 Onset of symptoms was April 30, 2023. jw7 Triage Assessment: 05:53 General: Appears uncomfortable, Behavior is calm, cooperative. Pain: Complains of pain kl in back Pain currently is 8 out of 10 on a pain scale. EENT: No deficits noted. Neuro: No deficits noted. Cardiovascular: No deficits noted. Respiratory: No deficits noted. GI: No deficits noted. No signs and/or symptoms were reported involving the gastrointestinal system. : No deficits noted. No signs and/or symptoms were reported regarding the genitourinary system. Musculoskeletal: Circulation, motion, and sensation intact. Historical: - Allergies: 05:52 SEAFOOD; kl 05:52 SHELLFISH; kl - PMHx: 05:52 Back pain; compound fracture to L1; kl - PSHx: 05:52 Appendectomy; Cholecystectomy; kl - Immunization history:: Adult Immunizations not immunized. - Social history:: Smoking status: Patient reports the use of cigarette tobacco products, smokes one pack cigarettes per day. Reported history of juuling and/or vaping. Screenin:05 [facility] ED Fall Risk Assessment (Adult) History of falling in the last 3 months, jw7 including since admission No falls in past 3 months (0 pts) Score/Fall Risk Level 0 - 2 = Low Risk Oriented to surroundings, Maintained a safe environment. Abuse screen: Denies threats or abuse. Denies injuries from another. Nutritional screening: No deficits noted. Tuberculosis screening: No symptoms or risk factors identified. Assessment: 05:55 General: see triage assessment. 7 Vital Signs: 05:50 BP 116 / 75; Pulse 66; Resp 18; Temp 98.2(TE); Pulse Ox 100% ; Weight 117.93 kg; Height kl 5 ft. 10 in. ; Pain 8/10; 06:29 BP 111 / 77; Pulse 64; Resp 18 S; Pulse Ox 100% on R/A; jw7 06:49 BP 118 / 65; Pulse 78; Resp 18; Pulse Ox 98% on R/A; 05:50 Body Mass Index 37.31 (117.93 kg, 177.8 cm) 05:50 Pain Scale: Adult ED Course: 05:41 Patient arrived in ED. ag3 05:52 Triage completed. 05:54 Ethan Trent MD is Attending Physician. [facility] 05:57 Angela Koenig, OUMAR is Primary Nurse. jw7 06:05 Patient has correct armband on for positive identification. Bed in low position. Call 7 light in reach. 06:05 No provider procedures requiring assistance completed. jw7 06:06 Arm band placed on. jw7 06:21 Lumbar Spine (3 Views) XRAY In Process Unspecified. EDMS 06:40 Ariel Botello MD is Referral Physician. [facility] 06:50 Patient did not have IV access during this emergency room visit. Administered Medications: 06:22 Drug: Ketorolac IM 60 mg IM once Route: IM; Site: right deltoid; jw7 06:49 Follow up: Response: No adverse reaction 06:23 Drug: Dexamethasone IM 10 mg IM once Route: IM; Site: left deltoid; 7 06:49 Follow up: Response: No adverse reaction Medication: 06:07 VIS not applicable for this client. 7 Outcome: 06:40 Discharge ordered by . [facility] 06:49 Discharged to home ambulatory, 06:49 Condition: improved 06:49 Discharge instructions given to patient, Instructed on discharge instructions, follow up and referral plans. medication usage, Demonstrated understanding of instructions, follow-up care, medications, Prescriptions given X 4, 06:50 Patient left the ED. kl Signatures: Dispatcher [employer] EDAlisa Tadeo RN RN kl Anderson, Corey, MD MD cha Gomez, Alice ag3 Waits, Jodi, RN RN jw7 Corrections: (The following items were deleted from the chart) 05:53 05:52 Allergies: NKDA; an nolan
[2023-04-30 06:55] VITALS: TEMP 98.2
[2023-04-30 06:57] VITALS: BP 118/65; O2SAT 98
--- NOTE | 2023-04-30 13:24 | RAD REPORT ---
EXAM DESCRIPTION: RAD - Lumbar Spine 3 Views - 04/30/2023 6:19 am CLINICAL HISTORY: PAIN COMPARISON: None. TECHNIQUE: XR LUMBAR SPINE 2-3 VIEWS 04/30/2023 6:00 AM CDT FINDINGS: There is mild old upper endplate compression deformity of L1. Alignment is anatomic. Disc spaces are maintained. Soft tissues are unremarkable. IMPRESSION: No acute fracture or subluxation. Electronically signed by: Tolu Martinez MD 04/30/2023 6:50 AM CDT Due to temporary technical issues with the PACS/Fluency reporting system, reports are being signed by the in house radiologists without review as a courtesy to insure prompt reporting. The interpreting radiologist is fully responsible for the content of the report.
== END 2023-04-30 06:50 | disposition home or self-care (01) ==
LOC: ER 05:39
DX: S39.092A Other injury of muscle, fascia and tendon of lower back, initial encounter (principal); F17.210 Nicotine dependence, cigarettes, uncomplicated; Z91.013 Allergy to seafood
CPT/HCPCS: 72100; 96372; 99284; J1100

== ENCOUNTER → 2023-09-02 | Emergency (ER) | payer BC ==
--- OUTSIDE RECORDS SUMMARY | 2023-09-02 08:03 | XMS REPORT | Continuity of Care Document ---
Author Name Unknown Address [address] [facility] [address] [place] [address] [facility] [address] [facility] [place] [address] Care Team Providers Care Risk Specialist Name Role Phone Pcp, Patient Does Not Have A Primary Care Physic jeremy Nida Franco RN Attending Clinician Unavailable VALERIY BRANHAM Attending Clinician UnavailValeriy Martin Attending Clinician + [phone] Unknown, Attending Attending Clinician Unavailab le Doctor Unassigned, Jarales Attending Clinician U navailable Rosa Villanueva Attending Clinician [phone] ROSA BLAKE Attending Clinician Unavailbrooke Qureshi, Raf[facility] Attending Clinician Un available King JUAN LUIS MD, Shakira Krishna Attending Clinician [phone] Only, Ang Db Test Attending Clinician UnavailAgnes Mota Attending Clinician [phone] AGNES RAMIREZ Attending Clinician Unavailable SHAKIRA MAJOR Attending Clinician Jonny Major MD, Shakira Wray Attending Clinician + [phone] SEVEN MUSTAFA Attending Clinician Unavailable Seven Nick Attending Clinician [phone] UNKNOWN, ATTENDING Attending Clinician Unavailab Flores Attending Clinician Unavailable PAMELA Attending Clinician Unavailable Cha Admitting Clinician Unavailable PAMELA Admitting Clinician Unavailable Payers Payer Name Policy Type Policy Number Effective Date Expirati on Date Source [employer] [employer] [id number] 2020 00:00:00 Problems Condition Name Condition Details Condition Category Status Onset Date Resolution Date Last Treatment Date Treating Clinician Comments Source No known active problems No known active problems Disease [facility] Allergies, Adverse Reactions, Alerts Allergy Name Allergy Type Status Severity Reaction(s) Onset Date Inactive Date Treating Clinician Comments Source IODINE DRUG INGREDI Active Unknown-Cmnt 01-06 00:00: 00 [facility] Iodine Propensi ty to adverse reaction s Active Unknown - See comments 01-06 00:00: 00 [facility] SEAFOOD/ FISH Food Active High Swelling 2017-07 00:00: 00 [facility] Seafood/ Fish Propensi ty to adverse reaction s Active Swelling 2017-07 00:00: 00 [facility] Social History Social Habit Start Date Stop Date Quantity Comments Source [facility] of tobacco use Snuff User [facility] History SDOH Alcohol Frequency [facility] History SDOH Alcohol Std Drinks [facility] History SDOH Alcohol Binge [facility] History of Social function 2022-07-26 00:00:00 2022-07-26 00:00:00 [facility] Exposure to SARS-CoV-2 (event) 2021-11-11 00:00:00 2021-11-21 11:53:00 Not sure [facility] Tobacco use and exposure 2021-01-06 00:00:00 2021-01-06 00:00:00 User of smokeless tobacco [facility] Alcohol intake 2021-01-06 00:00:00 2021-01-06 00:00:00 Current drinker of alcohol (finding) [facility] Alcohol Comment 2021-01-06 00:00:00 2021-01-06 00:00:00 only occasional [facility] Sex Ass[birth year] At 1990 00:00:00 1990 00:00:00 [facility] Smoking Status Start Date Stop Date Source Smokes tobacco daily 2021-01-06 00:00:00 [facility] Medications Ordered Medication Name Filled Medication Name Start Date Stop Date Current Medication? Ordering Clinician Indication Dosage Frequency Signature (SIG) Comments Components Source benzonatate 200 mg capsule 07-26 00:00: 00 08-06 05:59 :00 No [id number] 200mg Take 1 capsule by mouth 3 (three) times daily as needed for Cough for up to 10 days. [facility] benzonatate 200 mg capsule 07-26 00:00: 00 08-06 05:59 :00 No [id number] 200mg Take 1 capsule by mouth 3 (three) times daily as needed for Cough for up to 10 days. [facility] ondansetron 4 mg tablet 07-26 00:00: 00 08-01 05:59 :00 No [id number] 4mg Take 1 tablet by mouth every 8 (eight) hours as needed for Nausea and Vomiting (N/V) for up to 5 days. [facility] ondansetron 4 mg tablet 07-26 00:00: 00 08-01 05:59 :00 No [id number] 4mg Take 1 tablet by mouth every 8 (eight) hours as needed for Nausea and Vomiting (N/V) for up to 5 days. [facility] fexofenadin e-pseudoeph edrine (WENDI-D) 60-120 mg per tablet 11-21 00:00: 00 Yes [id number] 1{tbl} Take 1 tablet by mouth 2 (two) times daily. [facility] bromphenira mine-pseudo ephedrine-D M (BROMFED DM) 2-30-10 mg/5 mL syrup -03 00:00: 00 Yes [id number] 5mL Take 5 mL by mouth 4 (four) times daily as needed for Congestion /Allergies or Cough. [facility] fluticasone propionate 50 mcg/actuati on nasal spray 11-21 00:00: 00 Yes [id number] 2{spray } Use 2 Sprays in each nostril daily. [facility] fexofenadin e-pseudoeph edrine (WENDI-D) 60-120 mg per tablet 11-21 00:00: 00 Yes [id number] 1{tbl} Take 1 tablet by mouth 2 (two) times daily. [facility] fluticasone propionate 50 mcg/actuati on nasal spray 11-21 00:00: 00 Yes [id number] 2{spray } Use 2 Sprays in each nostril daily. [facility] fexofenadin e-pseudoeph edrine (WENDI-D) 60-120 mg per tablet 11-21 00:00: 00 Yes [id number] 1{tbl} Take 1 tablet by mouth 2 (two) times daily. [facility] fluticasone propionate 50 mcg/actuati on nasal spray 11-21 00:00: 00 Yes [id number] 2{spray } Use 2 Sprays in each nostril daily. [facility] fexofenadin e-pseudoeph edrine (WENDI-D) 60-120 mg per tablet 11-21 00:00: 00 Yes [id number] 1{tbl} Take 1 tablet by mouth 2 (two) times daily. [facility] bromphenira mine-pseudo ephedrine-D M (BROMFED DM) 2-30-10 mg/5 mL syrup 11-21 00:00: 00 Yes [id number] 5mL Take 5 mL by mouth 4 (four) times daily as needed for Congestion /Allergies or Cough. [facility] fluticasone propionate 50 mcg/actuati on nasal spray 11-21 00:00: 00 Yes [id number] 2{spray } Use 2 Sprays in each nostril daily. [facility] bromphenira mine-pseudo ephedrine-D M (BROMFED DM) 2-30-10 mg/5 mL syrup 5-03 00:00: 00 07-26 00:00 :00 No [id number] 5mL Take 5 mL by mouth 4 (four) times daily as needed for Congestion /Allergies or Cough. [facility] benzonatate 100 mg capsule 07-28 00:00: 00 Yes [id number] 100mg Take 1 capsule by mouth every 8 (eight) hours as needed for Cough. [facility] benzonatate 100 mg capsule 07-28 00:00: 00 11-21 00:00 :00 No [id number] 100mg Take 1 capsule by mouth every 8 (eight) hours as needed for Cough. [facility] azithromyci n 500 mg tablet 04-17 00:00: 00 Yes [id number] 500mg Take 1 tablet by mouth daily. [facility] benzonatate 200 mg capsule 04-17 00:00: 00 Yes [id number] 200mg Take 1 capsule by mouth 3 (three) times daily as needed for Cough. [facility] azithromyci n 500 mg tablet 04-17 00:00: 00 Yes [id number] 500mg Take 1 tablet by mouth daily. [facility] benzonatate 200 mg capsule 0 04-17 00:00: 00 Yes [id number] 200mg Take 1 capsule by mouth 3 (three) times daily as needed for Cough. [facility] azithromyci n 500 mg tablet 0 04-17 00:00: 00 Yes [id number] 500mg Take 1 tablet by mouth daily. [facility] benzonatate 200 mg capsule 0 04-17 00:00: 00 Yes [id number] 200mg Take 1 capsule by mouth 3 (three) times daily as needed for Cough. [facility] azithromyci n 500 mg tablet 0 04-17 00:00: 00 Yes [id number] 500mg Take 1 tablet by mouth daily. [facility] azithromyci n 500 mg tablet 04-17 00:00: 00 Yes [id number] 500mg Take 1 tablet by mouth daily. [facility] azithromyci n 500 mg tablet 04-17 00:00: 00 Yes [id number] 500mg Take 1 tablet by mouth daily. [facility] azithromyci n 500 mg tablet 04-17 00:00: 00 07-26 00:00 :00 No [id number] 500mg Take 1 tablet by mouth daily. [facility] benzonatate 200 mg capsule 04-17 00:00: 00 11-21 00:00 :00 No [id number] 200mg Take 1 capsule by mouth 3 (three) times daily as needed for Cough. [facility] ondansetron 4 mg tablet 04-15 00:00: 00 04-21 04:59 :00 No [id number] 4mg Take 1 tablet by mouth every 8 (eight) hours for 5 days. [facility] bromphenira mine-pseudo ephedrine-D M (BROMFED DM) 2-30-10 mg/5 mL syrup 03-11 00:00: 00 04-17 00:00 :00 No [id number] 5mL Take 5 mL by mouth 4 (four) times daily as needed for Congestion /Allergies or Cough. [facility] escitalopra m oxalate 10 mg tablet 01-06 00:00: 00 Yes [id number] 10mg Take 1 tablet by mouth daily. [facility] escitalopra m oxalate 10 mg tablet 01-06 00:00: 00 Yes [id number] 10mg Take 1 tablet by mouth daily. [facility] escitalopra m oxalate 10 mg tablet 01-06 00:00: 00 Yes [id number] 10mg Take 1 tablet by mouth daily. [facility] escitalopra m oxalate 10 mg tablet 01-06 00:00: 00 Yes [id number] 10mg Take 1 tablet by mouth daily. [facility] escitalopra m oxalate 10 mg tablet 01-06 00:00: 00 Yes [id number] 10mg Take 1 tablet by mouth daily. [facility] escitalopra m oxalate 10 mg tablet 01-06 00:00: 00 Yes [id number] 10mg Take 1 tablet by mouth daily. [facility] escitalopra m oxalate 10 mg tablet 01-06 00:00: 00 07-26 00:00 :00 No [id number] 10mg Take 1 tablet by mouth daily. [facility] escitalopra m oxalate 10 mg tablet 01-06 00:00: 00 07-26 00:00 :00 No [id number] 10mg Take 1 tablet by mouth daily. [facility] Vital Signs Vital Name Observation Time Observation Value Comments S ourmary Systolic blood pressure 2022-07-26 15:36:00 120 mm[Hg] [facility] Diastolic blood pressure 2022-07-26 15:36:00 77 mm[Hg] [facility] Heart rate 2022-07-26 15:36:00 86 /min [facility] Body temperature 2022-07-26 15:36:00 37.11 Mulu [facility] Respiratory rate 2022-07-26 15:36:00 16 /min [facility] Body height 2022-07-26 15:36:00 175.3 cm [facility] Body weight 2022-07-26 15:36:00 124.785 kg [facility] BMI 2022-07-26 15:36:00 40.63 kg/m2 [facility] Oxygen saturation in Arterial blood by Pulse oximetry 2022-07-26 15:36:00 97 /min [facility] Systolic blood pressure 2021-11-21 16:58:00 112 mm[Hg] [facility] Diastolic blood pressure 2021-11-21 16:58:00 73 mm[Hg] [facility] Heart rate 2021-11-21 16:58:00 75 /min [facility] Body temperature 2021-11-21 16:58:00 36.61 M[facility] Respiratory rate 2021-11-21 16:58:00 18 /min [facility] Body height 2021-11-21 16:58:00 175.3 cm [facility] Body weight 2021-11-21 16:58:00 124.785 kg [facility] BMI 2021-11-21 16:58:00 40.63 kg/m2 [facility] Oxygen saturation in Arterial blood by Pulse oximetry 2021-11-21 16:58:00 98 /min [facility] Systolic blood pressure 2021-07-28 17:50:00 124 mm[Hg] [facility] Diastolic blood pressure 2021-07-28 17:50:00 82 mm[Hg] [facility] Heart rate 2021-07-28 17:50:00 86 /min [facility] Body temperature 2021-07-28 17:50:00 37.22 [facility] Respiratory rate 2021-07-28 17:50:00 18 /min [facility] Body height 2021-07-28 17:50:00 177.8 cm [facility] Body weight 2021-07-28 17:50:00 130.545 kg [facility] BMI 2021-07-28 17:50:00 41.30 kg/m2 [facility] Oxygen saturation in Arterial blood by Pulse oximetry 2021-07-28 17:50:00 98 /min [facility] Systolic blood pressure 2021-04-17 16:21:00 115 mm[Hg] [facility] Diastolic blood pressure 2021-04-17 16:21:00 75 mm[Hg] [facility] Heart rate 2021-04-17 16:21:00 91 /min [facility] Body temperature 2021-04-17 16:21:00 36.94 M[facility] Body height 2021-04-17 16:21:00 177.8 cm [facility] Body weight 2021-04-17 16:21:00 129.729 kg [facility] BMI 2021-04-17 16:21:00 41.04 kg/m2 [facility] Oxygen saturation in Arterial blood by Pulse oximetry 2021-04-17 16:21:00 99 /min [facility] Procedures Procedure Date / Time Performed Performing Clinicia n Source ASSIGNMENT OF BENEFITS 2022-07-26 15:32:01 Docto r Unassigned, Jarales [facility] Encounters Start Date/Time End Date/Time Encounter Type Admission Type [facility]ending [facility] Facility Care Department Encounter ID Source 2023-04-09 10:58:33 2023-04-09 10:58:33 Outpatient SFA SFA [id number] Yusuf Lopez 2022-07-27 00:00:00 2022-07-27 00:00:00 Letter (Out) Nida Franco [place] 1.114 350.1.13.10 4.2.7.2.686 [id number] [facility] 2022-07-26 09:40:00 2022-07-26 09:59:32 Outpatient R VALERIY BRANHAM [facility] [id number] [facility] 2022-07-26 09:40:00 2022-07-26 09:59:32 Urgent Care Valeriy Branham, Attending [facility] 1.114 350.1.13.10 4.2.7.2.686 [id number] [facility] 2022-07-26 00:00:00 2022-07-26 00:00:00 Orders Only Doctor Unassigned, Jarales [place] 1.114 350.1.13.10 4.2.7.2.686 [id number] [facility] 2021-11-21 12:00:00 2021-11-21 12:20:00 Urgent Care Rosa Blake [facility] 1..114 350.1.13.10 4.2.7.2.686 [id number] [facility] 2021-11-21 12:00:00 2021-11-21 12:00:00 [id number] 2021-09-19 11:45:00 2021-09-19 12:05:00 Nurse Visit Nurse, Ang Db Urgent Care Unknown, Attending Valeriy Branham [facility] 1.2.840.114 350.1.13.10 4.2.7.2.686 [id number] [facility] 2021-09-19 12:20:00 2021-09-19 12:02:41 Outpatient R VALERIY BRANHAM [facility] [id number] [facility] 2021-07-28 11:40:00 2021-07-28 12:19:26 [facility] [id number] [facility] 2021-07-28 11:40:00 2021-07-28 12:19:26 Urgent Care Shakira Rivera [facility] 1.2.840.114 350.1.13.10 4.2.7.2.686 [id number] [facility] 2021-07-20 16:30:00 2021-07-20 16:45:00 Laboratory Only Only, Ang Db Test Ashley [facility] 1.2.840.114 350.1.13.10 4.2.7.2.686 [id number] [facility] 2021-07-20 16:30:00 2021-07-20 16:30:00 Outpatient R ASHLEY [facility] [id number] [facility] 2021-04-24 00:00:00 2021-04-24 00:00:00 Outpatient PRIV PRIV [id number] [facility] 2021-04-24 00:00:00 2021-04-24 00:00:00 Outpatient PRIV PRIV [id number] [facility] 2021-04-24 00:00:00 2021-04-24 00:00:00 Outpatient PRIV PRIV [id number] [facility] 2021-04-24 00:00:00 2021-04-24 00:00:00 Outpatient PRIV PRIV [id number] [facility] 2021-04-17 11:30:00 2021-04-17 11:40:43 Outpatient R SHAKIRA MAJOR [facility] [id number] [facility] 2021-04-17 11:11:48 2021-04-17 11:26:48 Office Visit Shakira Major [facility] 1.2.840.114 350.1.13.10 4.2.7.2.686 [id number] [facility] 2021-04-15 09:20:00 2021-04-15 09:29:38 Outpatient R RAMSEY [facility] [id number] [facility] 2021-04-15 09:10:16 2021-04-15 09:29:38 Urgent Care Brianrhys [facility] 1.2.840.114 350.1.13.10 4.2.7.2.686 [id number] [facility] 2021-04-15 00:00:00 2021-04-15 00:00:00 Patient Secure Msg Doctor Unassigned, Jarales [place] 1.2.840.114 350.1.13.10 4.2.7.2.686 [id number] [facility] 2021-04-15 00:00:00 2021-04-15 00:00:00 [facility] 1.2.840.114 350.1.13.10 4.2.7.2.686 [id number] [facility] 2021-03-13 10:20:00 2021-03-13 10:20:00 Outpatient ROSA BUTLER [facility] [id number] [facility] 2021-03-11 13:40:00 2021-03-11 13:40:00 Outpatient R HELENE WALKER [facility] [id number] [facility] 2021-03-06 08:15:00 2021-03-06 08:15:00 Outpatient SHAKIRA LVEY [facility] [id number] [facility] 2021-02-03 09:15:00 2021-02-03 09:15:00 Outpatient SHAKIRA LEVY [facility] [id number] [facility] 2021-02-02 11:30:00 2021-02-02 11:30:00 Outpatient SHAKIRA LEVY [facility] [id number] [facility] 2021-01-19 00:00:00 2021-01-19 00:00:00 Patient Secure Msg Tylerbrandy Shakira [facility]upriya [facility] 1.2.840.114 350.1.13.10 4.2.7.2.686 [id number] [facility] 2021-01-06 13:30:00 2021-01-06 13:30:00 Outpatient SHAKIRA LEVY [facility] [id number] [facility] 2020-09-12 12:27:00 2020-09-12 12:27:00 Outpatient Cha [facility] [id number] [facility] 2020-04-22 09:39:00 2020-04-22 09:39:00 Outpatient MIREYAREEN_LOUISA CASTANEDA [facility] [id number] [place] [facility]
[2023-09-02 08:40] LABS: SARS-CoV-2 Antigen Rapid Res Negative (Negative)
--- NOTE | 2023-09-02 08:51 | RAD REPORT ---
EXAM DESCRIPTION: RAD - Chest Pa And Lat (2 Views) - 09/02/2023 8:34 am CLINICAL HISTORY: Congestion;Cough COMPARISON: Chest Single View dated 10/08/2022; Chest Pa And Lat (2 Views) dated 07/30/2022; Chest Sing le View dated 01/20/2022; Chest Single View dated 08/30/2020 TECHNIQUE: PA and lateral views of the chest were obtained. FINDINGS: The lungs are clear. Heart size is normal and central vasculature is within normal limits. No pleural effusion or pneumothorax seen. No acute bony finding noted. IMPRESSION: No acute cardiopulmonary process.
--- NOTE | 2023-09-02 08:55 | ER ---
Nurse's Notes [facility] Name: Salvador Fuchs Age: 33 yrs Sex: Male : 1990 Arrival Date: 09/02/2023 Time: 08:00 Bed 19 Private MD: Diagnosis: Acute upper respiratory infection, unspecified Presentation: 09/02 08:13 Chief complaint: Patient states: cough and congestion x 2 weeks ago, reports SOB today. aa5 Coronavirus screen: congestion, cough unrelated to allergies. Ebola Screen: Patient denies travel to an Ebola-affected area in the 21 days before illness onset. Initial Sepsis Screen: Does the patient meet any 2 criteria? HR > 90 bpm. Does the patient have a suspected source of infection? No. Patient's initial sepsis screen is negative. Risk Assessment: Do you want to hurt yourself or someone else? Patient reports no desire to harm self or others. Onset of symptoms was August 2023. 08:13 Acuity: KATHLEEN 3 aa5 08:13 Method Of Arrival: Ambulatory aa5 Historical: - Allergies: 08:13 SEAFOOD; aa5 08:13 SHELLFISH; aa5 - PMHx: 08:13 Back pain; compound fracture to L1; aa5 - PSHx: 08:13 Appendectomy; Cholecystectomy; aa5 - Immunization history:: Adult Immunizations unknown. - Social history:: Smoking status: Patient reports the use of cigarette tobacco products, denies chronic smoking, but will smoke occasionally. Screenin:15 [facility] ED Fall Risk Assessment (Adult) History of falling in the last 3 months, db including since admission No falls in past 3 months (0 pts) Confusion or Disorientation No (0 pts) Intoxicated or Sedated No (0 pts) Impaired Gait No (0 pts) Mobility Assist Device Used No (0 pt) Altered Elimination No (0 pt) Score/Fall Risk Level 0 - 2 = Low Risk Oriented to surroundings, Maintained a safe environment. Abuse screen: Denies threats or abuse. Denies injuries from another. Nutritional screening: No deficits noted. Tuberculosis screening: No symptoms or risk factors identified. Assessment: 08:15 Reassessment: Patient appears in no apparent distress at this time. Patient and/or db family updated on plan of care and expected duration. Pain level reassessed. Patient is alert, oriented x 3, equal unlabored respirations, skin warm/dry/pink. FLU LIKE SYMPTOMS. General: Appears in no apparent distress. comfortable, Behavior is calm, cooperative. Pain: Complains of pain in BODY ACHES. Neuro: Level of Consciousness is awake, alert, obeys commands, Oriented to person, place, time. 08:15 Respiratory: No deficits noted. Airway is patent Respiratory effort is even, unlabored, db Respiratory pattern is regular, symmetrical. Vital Signs: 08:13 BP 149 / 74; Pulse 111; Resp 20 S; Temp 98.2(O); Pulse Ox 97% on R/A; Weight 120.2 kg aa5 (R); Height 5 ft. 10 in. (R); 08:13 Body Mass Index 38.02 (120.20 kg, 177.8 cm) aa5 ED Course: 08:04 Patient arrived in ED. mg5 08:04 Pam Bradford PA-C is PHCP. sb4 08:04 Paul Clay DO is Attending Physician. sb4 08:13 Arm band placed on Patient placed in an exam room, on a stretcher. aa5 08:14 Triage completed. aa5 08:15 Patient has correct armband on for positive identification. Bed in low position. Call db light in reach. Side rails up X 1. Provided Education on:. 08:36 Chest Pa And Lat (2 Views) XRAY In Process Unspecified. EDMS 09:02 Allyssa Trejo, RN is Primary Nurse. db 09:04 No provider procedures requiring assistance completed. Patient did not have IV access db during this emergency room visit. Administered Medications: No medications were administered Medication: 08:15 VIS not applicable for this client. db Outcome: 08:54 Discharge ordered by . sb4 09:04 Discharged to home ambulatory, db 09:04 Condition: stable 09:04 Discharge instructions given to patient, Instructed on discharge instructions, follow up and referral plans. Prescriptions given X 2, 09:04 Patient left the ED. db Signatures: Dispatcher [employer] EDMS Jessa Resendez, RN RN aa5 Allyssa Trejo, RN RN Pam Andrade PA-C PA-C sb4 Camryn Flores mg5
--- NOTE | 2023-09-02 08:55 | EDPHYS ---
Physician Documentation [facility] Name: Salvador Fuchs Age: 33 yrs Sex: Male : 1990 Arrival Date: 09/02/2023 Time: 08:00 Bed 19 Private MD: ED Physician Paul Clay HPI: 09/02 08:12 This 33 yrs old Male presents to ER via Unassigned with complaints of Flu Symptoms. sb4 08:12 cough, congestion, headache, fatigue, urbina x 3 days. symptoms worsened today. unknown sb4 sick contacts. taking cough drops without relief. no known fevers. no pertinent medical history. Historical: - Allergies: 08:13 SEAFOOD; aa5 08:13 SHELLFISH; aa5 - PMHx: 08:13 Back pain; compound fracture to L1; aa5 - PSHx: 08:13 Appendectomy; Cholecystectomy; aa5 - Immunization history:: Adult Immunizations unknown. - Social history:: Smoking status: Patient reports the use of cigarette tobacco products, denies chronic smoking, but will smoke occasionally. ROS: 08:12 Abdomen/GI: Negative for abdominal pain, nausea, vomiting, diarrhea, and constipation, sb4 08:12 Constitutional: Positive for fatigue, malaise, 08:12 ENT: Positive for sinus congestion, sore throat, 08:12 Respiratory: Positive for cough, dyspnea on exertion, 08:12 Neuro: Positive for headache, Exam: 08:12 Constitutional: This is a well developed, well nourished patient who is awake, alert, sb4 and in no acute distress. Head/Face: Normocephalic, atraumatic. Eyes: Extra-ocular motions intact. Periorbital areas with no swelling, redness, or edema. ENT: Mucous membranes moist. Cardiovascular: Regular rate and rhythm with a normal S1 and S2. Abdomen/GI: Soft, non-tender, no distension. Skin: Warm, dry with normal turgor. Normal color with no rashes, no lesions, and no evidence of cellulitis. MS/ Extremity: Pulses equal, no cyanosis. Neurovascular intact. Full, normal range of motion. 08:12 Respiratory: the patient does not display signs of respiratory distress, Respirations: normal, Breath sounds: are clear throughout, no bronchial sounds, + upper airway congestion. Vital Signs: 08:13 BP 149 / 74; Pulse 111; Resp 20 S; Temp 98.2(O); Pulse Ox 97% on R/A; Weight 120.2 kg aa5 (R); Height 5 ft. 10 in. (R); 08:13 Body Mass Index 38.02 (120.20 kg, 177.8 cm) aa5 MDM: 08:07 Patient medically screened. sb4 08:12 Differential diagnosis: covid, flu, bronchitis, PNA. sb4 08:53 Data reviewed: vital signs, nurses notes, lab test result(s), radiologic studies, and sb4 as a result, I will discharge patient. Counseling: I had a detailed discussion with the patient and/or guardian regarding the historical points, exam findings, and any diagnostic results supporting the discharge/admit diagnosis, lab results, radiology results, to return to the emergency department if symptoms worsen or persist or if there are any questions or concerns that arise at home. 09/02 08:12 Order name: SARS RAPID; Complete Time: 08:44 sb4 09/02 08:12 Order name: Flu; Complete Time: 08:44 sb4 09/02 08:12 Order name: Chest Pa And Lat (2 Views) XRAY; Complete Time: 08:51 sb4 Administered Medications: No medications were administered Disposition: 09:24 I was immediately available on-site in the Emergency Department for consultation in the ms3 care of the patient. Disposition Summary: 09/02/23 08:54 Discharge Ordered Notes: Location: Home sb4 Problem: an ongoing problem sb4 Symptoms: are unchanged sb4 Condition: Stable sb4 Diagnosis - Acute upper respiratory infection, unspecified sb4 Followup: sb4 - With: Emergency Department - When: As needed - Reason: Trouble breathing, Worsening of condition Discharge Instructions: - Discharge Summary Sheet sb4 - Upper Respiratory Infection, Adult, [id number] sb4 Forms: - Work release form db - Medication Reconciliation Form sb4 - Thank You Letter sb4 - Antibiotic Education sb4 - Prescription Opioid Use sb4 - Patient Portal Instructions sb4 - Leadership Thank You Letter sb4 Prescriptions: - Tessalon Perles 100 mg Oral Capsule - take 1 capsule ORAL route every 8 hours As needed; 15 capsule; Refills: 0, sb4 Product Selection Permitted - Prednisone 20 mg Oral Tablet - take 1 tablet ORAL route every 12 hours for 5 days; 10 tablet; Refills: 0, sb4 Product Selection Permitted Signatures: Dispatcher [employer] Jessa Acevedo, RN RN aa5 Paul Clay DO DO ms3 Pam Bradford PA-C PA-C sb4
[2023-09-02 09:08] VITALS: BP 149/74; TEMP 98.2; O2SAT 97
== END ==
LOC: ER 08:00
DX: J06.9 Acute upper respiratory infection, unspecified (principal); Z11.52 Encounter for screening for COVID-19; F17.210 Nicotine dependence, cigarettes, uncomplicated; Z91.013 Allergy to seafood
CPT/HCPCS: 36415; 71046; 87804; 87811

== ENCOUNTER 2023-11-11 12:29 | Emergency (ER) | payer BC ==
--- OUTSIDE RECORDS SUMMARY | 2023-11-11 12:32 | XMS REPORT | Continuity of Care Document ---
Author Name Unknown Address [address] [place] [address] [facility] thconnect Address 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 Role Phone Pcp, Patient Does Not Have A Primary Care Physic jeremy Nida Franco RN Attending Clinician Unavailable VALERIY BRANHAM Attending Clinician UnavailValeriy Martin Attending Clinician + [phone] Unknown, Attending Attending Clinician Unavailab le Doctor Unassigned, Burket Attending Clinician U navailable Rosa Villanueva Attending Clinician [phone] ROSA BLAKE Attending Clinician Unavailbrooke stapleton Nurse, Rafy [facility] Attending Clinician Un available King JUAN LUIS MD, Shakira Krishna Attending Clinician [phone] Only, Rafy Manley Test Attending Clinician UnavailAgnes Mota Attending Clinician [phone] AGNES RAMIREZ Attending Clinician Unavailable SHAKIRA MAJOR Attending Clinician Jonny Major MD, Shakira Wray Attending Clinician + [phone] SEVEN MUSTAFA Attending Clinician Unavailable Seven Nick Attending Clinician UNKNOWN, ATTENDING Attending Clinician Unavailab Flores Attending Clinician Unavailable PAMELA Attending Clinician Unavailable Cha Admitting Clinician Unavailable PAMELA Admitting Clinician Unavailable Payers Payer Name Policy Type Policy Number Effective Date Expirati on Date Source [facility] [employer] [id number] 2020 00:00:00 Problems Condition Name Condition Details Condition Category Status Onset Date Resolution Date Last Treatment Date Treating Clinician Comments Source No known active problems No known active problems Disease [facility] Allergies, Adverse Reactions, Alerts Allergy Name Allergy Type Status Severity Reaction(s) Onset Date Inactive Date Treating Clinician Comments Source IODINE DRUG INGREDI Active Unknown-Cmnt 01-06 00:00: 00 [facility] Iodine Propensi ty to adverse reaction s Active Unknown - See comments 01-06 00:00: 00 [facility] SEAFOOD/ FISH Food Active High Swelling 2017-07 00:00: 00 [facility] Seafood/ Fish Propensi ty to adverse reaction s Active Swelling 2017-07 00:00: 00 Univers [facility] Social History Social Habit Start Date Stop Date Quantity Comments Source [facility] of tobacco use Snuff User [facility] History SDOH Alcohol Frequency [facility] History SDOH Alcohol Std Drinks [facility] History SDOH Alcohol Binge [facility] History of Social function 2022-07-26 00:00:00 2022-07-26 00:00:00 [facility] Exposure to SARS-CoV-2 (event) 2021-11-11 00:00:00 2021-11-21 11:53:00 Not sure [facility] Tobacco use and exposure 2021-01-06 00:00:00 2021-01-06 00:00:00 User of smokeless tobacco [facility] Alcohol intake 2021-01-06 00:00:00 2021-01-06 00:00:00 Current drinker of alcohol (finding) [facility] Alcohol Comment 2021-01-06 00:00:00 2021-01-06 00:00:00 only occasional [facility] Sex Ass[birth year] At 1990 00:00:00 1990 00:00:00 [facility] Smoking Status Start Date Stop Date Source Smokes tobacco daily 2021-01-06 00:00:00 [facility] Medications Ordered Medication Name Filled Medication Name Start Date Stop Date Current Medication? Ordering Clinician Indication Dosage Frequency Signature (SIG) Comments Components Source benzonatate 200 mg capsule 07-26 00:00: 00 08-06 05:59 :00 No [id number] 200mg Take 1 capsule by mouth 3 (three) times daily as needed for Cough for up to 10 days. [facility] ondansetron 4 mg tablet 07-26 00:00: 00 08-01 05:59 :00 No [id number] 4mg Take 1 tablet by mouth every 8 (eight) hours as needed for Nausea and Vomiting (N/V) for up to 5 days. [facility] fluticasone propionate 50 mcg/actuati on nasal spray 11-21 00:00: 00 Yes [id number] 2{spray } Use 2 Sprays in each nostril daily. [facility] fexofenadin e-pseudoeph edrine (WENDI-D) 60-120 mg per tablet 11-21 00:00: 00 Yes [id number] 1{tbl} Take 1 tablet by mouth 2 (two) times daily. [facility] bromphenira mine-pseudo ephedrine-D M (BROMFED DM) 2-30-10 mg/5 mL syrup 11-21 00:00: 00 07-26 00:00 :00 No [id number] 5mL Take 5 mL by mouth 4 (four) times daily as needed for Congestion /Allergies or Cough. [facility] benzonatate 100 mg capsule 07-28 00:00: 00 11-21 00:00 :00 No [id number] 100mg Take 1 capsule by mouth every 8 (eight) hours as needed for Cough. [facility] azithromyci n 500 mg tablet 04-17 00:00: 00 07-26 00:00 :00 No [id number] 500mg Take 1 tablet by mouth daily. [facility] benzonatate 200 mg capsule 04-17 00:00: 00 11-21 00:00 :00 No [id number] 200mg Take 1 capsule by mouth 3 (three) times daily as needed for Cough. [facility] ondansetron 4 mg tablet 04-15 00:00: 00 04-21 04:59 :00 No [id number] 4mg Take 1 tablet by mouth every 8 (eight) hours for 5 days. [facility] bromphenira mine-pseudo ephedrine-D M (BROMFED DM) 2-30-10 mg/5 mL syrup 03-11 00:00: 00 04-17 00:00 :00 No [id number] 5mL Take 5 mL by mouth 4 (four) times daily as needed for Congestion /Allergies or Cough. [facility] escitalopra m oxalate 10 mg tablet 01-06 00:00: 00 07-26 00:00 :00 No [id number] 10mg Take 1 tablet by mouth daily. [facility] Vital Signs Vital Name Observation Time Observation Value Comments S ource Systolic blood pressure 2022-07-26 15:36:00 120 mm[Hg] [facility] Diastolic blood pressure 2022-07-26 15:36:00 77 mm[Hg] [facility] Heart rate 2022-07-26 15:36:00 86 /min [facility] Body temperature 2022-07-26 15:36:00 37.11 Mulu [facility] Respiratory rate 2022-07-26 15:36:00 16 /min [facility] Body height 2022-07-26 15:36:00 175.3 cm [facility] Body weight 2022-07-26 15:36:00 124.785 kg [facility] BMI 2022-07-26 15:36:00 40.63 kg/m2 [facility] Oxygen saturation in Arterial blood by Pulse oximetry 2022-07-26 15:36:00 97 /min [facility] Systolic blood pressure 2021-11-21 16:58:00 112 mm[Hg] [facility] Diastolic blood pressure 2021-11-21 16:58:00 73 mm[Hg] [facility] Heart rate 2021-11-21 16:58:00 75 /min [facility] Body temperature 2021-11-21 16:58:00 36.61 Mulu [facility] Respiratory rate 2021-11-21 16:58:00 18 /min [facility] Body height 2021-11-21 16:58:00 175.3 cm [facility] Body weight 2021-11-21 16:58:00 124.785 kg [facility] BMI 2021-11-21 16:58:00 40.63 kg/m2 [facility] Oxygen saturation in Arterial blood by Pulse oximetry 2021-11-21 16:58:00 98 /min [facility] Systolic blood pressure 2021-07-28 17:50:00 124 mm[Hg] [facility] Diastolic blood pressure 2021-07-28 17:50:00 82 mm[Hg] [facility] Heart rate 2021-07-28 17:50:00 86 /min [facility] Body temperature 2021-07-28 17:50:00 37.22 Mulu [facility] Respiratory rate 2021-07-28 17:50:00 18 /min [facility] Body height 2021-07-28 17:50:00 177.8 cm [facility] Body weight 2021-07-28 17:50:00 130.545 kg [facility] BMI 2021-07-28 17:50:00 41.30 kg/m2 [facility] Oxygen saturation in Arterial blood by Pulse oximetry 2021-07-28 17:50:00 98 /min [facility] Systolic blood pressure 2021-04-17 16:21:00 115 mm[Hg] [facility] Diastolic blood pressure 2021-04-17 16:21:00 75 mm[Hg] [facility] Heart rate 2021-04-17 16:21:00 91 /min [facility] Body temperature 2021-04-17 16:21:00 36.94 Mulu [facility] Body height 2021-04-17 16:21:00 177.8 cm [facility] Body weight 2021-04-17 16:21:00 129.729 kg [facility] BMI 2021-04-17 16:21:00 41.04 kg/m2 [facility] Oxygen saturation in Arterial blood by Pulse oximetry 2021-04-17 16:21:00 99 /min [facility] Procedures Procedure Date / Time Performed Performing Clinicia n Source ASSIGNMENT OF BENEFITS 2022-07-26 15:32:01 Docto r Unassigned, Burket [facility] Encounters Start Date/Time End Date/Time Encounter Type Admission Type Attending [facility] Care Facility Care Department Encounter ID Source 2023-04-09 10:58:33 2023-04-09 10:58:33 Outpatient SFA SFA [id number] Yusuf Loni John 2022-07-27 00:00:00 2022-07-27 00:00:00 Letter (Out) [facility] [id number] 350.1.13.10 4.2.7.2.686 [id number] [facility] 2022-07-26 09:40:00 2022-07-26 09:59:32 Outpatient R VALERIY BRANHAM [facility] [id number] [facility] 2022-07-26 09:40:00 2022-07-26 09:59:32 Urgent Care Valeriy Branham, Attending [facility] [id number] 350.1.13.10 4.2.7.2.686 [id number] [facility] 2022-07-26 00:00:00 2022-07-26 00:00:00 Orders Only Doctor Unassigned, Burket [facility] 1..840.114 350.1.13.10 4.2.7.2.686 [id number] [facility] 2021-11-21 12:00:00 2021-11-21 12:20:00 Urgent Care Lou [facility] 1.840.114 350.1.13.10 4.2.7.2.686 [id number] [facility] 2021-11-21 12:00:00 2021-11-21 12:00:00 Outpatient R LOU [facility] [id number] [facility] 2021-09-19 11:45:00 2021-09-19 12:05:00 Nurse Visit Nurse, Rafy [facility] Unknown, Attending Valeriy Branham [facility] 1..840.114 350.1.13.10 4.2.7.2.686 [id number] [facility] 2021-09-19 12:20:00 2021-09-19 12:02:41 Outpatient R VALERIY BRANHAM [facility] [id number] [facility] 2021-07-28 11:40:00 2021-07-28 12:19:26 [facility] [id number] 2021-07-28 11:40:00 2021-07-28 12:19:26 [facility] 1..840.114 350.1.13.10 4.2.7.2.686 [id number] [facility] 2021-07-20 16:30:00 2021-07-20 16:45:00 Laboratory Only Only, Ang Db Test Ashley [facility] [id number] 350.1.13.10 4.2.7.2.686 [id number] [facility] 2021-07-20 16:30:00 2021-07-20 16:30:00 Outpatient R [facility] [id number] [facility] 2021-04-24 00:00:00 2021-04-24 00:00:00 Outpatient PRIV PRIV [id number] [facility] 2021-04-24 00:00:00 2021-04-24 00:00:00 Outpatient PRIV PRIV [id number] [facility] 2021-04-24 00:00:00 2021-04-24 00:00:00 Outpatient PRIV PRIV [id number] [facility] 2021-04-24 00:00:00 2021-04-24 00:00:00 Outpatient PRIV PRIV [id number] [facility] 2021-04-17 11:30:00 2021-04-17 11:40:43 Outpatient R SHAIKRA MAJOR [facility] [id number] [facility] 2021-04-17 11:11:48 2021-04-17 11:26:48 [facility] 1.2.840.114 350.1.13.10 4.2.7.2.686 [id number] [facility] 2021-04-15 09:20:00 2021-04-15 09:29:38 Outpatient R JONNIE SEVEN [facility] [id number] [facility] 2021-04-15 09:10:16 2021-04-15 09:29:38 Urgent Care Jonnie [facility] 1.2.84.114 350.1.13.10 4.2.7.2.686 [id number] [facility] 2021-04-15 00:00:00 2021-04-15 00:00:00 Patient Secure Msg Doctor Unassigned, Burket [facility] 1.114 350.1.13.10 4.2.7.2.686 [id number] [facility] 2021-04-15 00:00:00 2021-04-15 00:00:00 Telephone JonnieSeven [facility] B[facility] 1.114 350.1.13.10 4.2.7.2.686 [id number] [facility] 2021-03-13 10:20:00 2021-03-13 10:20:00 Outpatient ROSA BUTLER [facility] [id number] [facility] 2021-03-11 13:40:00 2021-03-11 13:40:00 Outpatient R HELENE WALKER [facility] [id number] [facility] 2021-03-06 08:15:00 2021-03-06 08:15:00 Outpatient SHAKIRA LEVY [facility] [id number] [facility] 2021-02-03 09:15:00 2021-02-03 09:15:00 Outpatient SHAKIRA LEVY [facility] [id number] [facility] 2021-02-02 11:30:00 2021-02-02 11:30:00 Outpatient SHAKIRA LEVY [facility] [id number] [facility] 2021-01-19 00:00:00 2021-01-19 00:00:00 Patient Secure Msg Shakira Major [facility] ONE 1.114 350.1.13.10 4.2.7.2.686 [id number] [facility] 2021-01-06 13:30:00 2021-01-06 13:30:00 Outpatient SHAKIRA LEVY [facility] [id number] [facility] 2020-09-12 12:27:00 2020-09-12 12:27:00 Outpatient Cha [facility] [id number] [facility] 2020-04-22 09:39:00 2020-04-22 09:39:00 Outpatient MIREYAREEN_LOUISA CERRATO [facility] [id number] [facility]
[2023-11-11] MEDS ORDERED: ACETAMINOPHEN 500 MG TAB ONE (13:12)
--- NOTE | 2023-11-11 13:38 | RAD REPORT ---
EXAM DESCRIPTION: RAD - Chest Pa And Lat (2 Views) - 11/11/2023 1:32 pm CLINICAL HISTORY: Cough;Fever Chest pain. COMPARISON: Chest Pa And Lat (2 Views) dated 09/02/2023; Chest Single View dated 10/08/2022; Chest Pa And Lat (2 Views) dated 07/30/2022; Chest Single View dated 01/20/2022 FINDINGS: The lungs are clear. The heart is normal in size. No displaced fractures. IMPRESSION: No acute or concerning finding suspected.
[2023-11-11 16:24] LABS: SARS-CoV-2 Antigen CONTROL BLUE LINE VIS/BG OK; SARS-CoV-2 Antigen Rapid Res Negative (Negative)
--- NOTE | 2023-11-11 16:45 | ER ---
Nurse's Notes [facility] Name: Salvador Fuchs Age: 33 yrs Sex: Male : 1990 Arrival Date: 11/11/2023 Time: 12:29 Bed 20 Private MD: Diagnosis: Chest pain on breathing Presentation: 11/10 12:47 Chief complaint: Patient states: short of breath at rest and on exertion for a week, ko1 has chest pain when taking a deep breath or yawning. Coronavirus screen: At this time, the client does not indicate any symptoms associated with coronavirus-19. Ebola Screen: No symptoms or risks identified at this time. Initial Sepsis Screen: Does the patient meet any 2 criteria? No. Patient's initial sepsis screen is negative. Does the patient have a suspected source of infection? No. Patient's initial sepsis screen is negative. Risk Assessment: Do you want to hurt yourself or someone else? Patient reports no desire to harm self or others. Onset of symptoms is unknown. 12:47 Method Of Arrival: Ambulatory ko1 12:47 Acuity: KATHLEEN 3 ko1 Triage Assessment: 12:51 General: Appears in no apparent distress. Behavior is calm, cooperative, appropriate ko1 for age. Pain: Denies pain. Cardiovascular: Reports shortness of breath. Historical: - Allergies: 12:51 SEAFOOD; ko1 12:51 SHELLFISH; ko1 - PMHx: 12:51 Back pain; compound fracture to L1; ko1 - PSHx: 12:51 Appendectomy; Cholecystectomy; ko1 - Immunization history:: Adult Immunizations unknown. - Infectious Disease History:: Denies. - Social history:: Smoking status: Patient denies any tobacco usage or history of. Screenin:34 [facility] ED Fall Risk Assessment (Adult) History of falling in the last 3 months, ph including since admission No falls in past 3 months (0 pts) Confusion or Disorientation No (0 pts) Intoxicated or Sedated No (0 pts) Impaired Gait No (0 pts) Mobility Assist Device Used No (0 pt) Altered Elimination No (0 pt) Score/Fall Risk Level 0 - 2 = Low Risk Oriented to surroundings, Maintained a safe environment, Hourly rounding (assess needs \T\ fall precautionary measures) done. Abuse screen: Denies threats or abuse. Denies injuries from another. Nutritional screening: No deficits noted. Tuberculosis screening: No symptoms or risk factors identified. Assessment: 15:37 General: Appears in no apparent distress. comfortable, Behavior is calm, cooperative, ph appropriate for age. Pain: Complains of pain in chest Pain does not radiate. Neuro: Level of Consciousness is awake, alert, obeys commands, Oriented to person, place, time, situation. Respiratory: Airway is patent Respiratory effort is even, unlabored. Vital Signs: 12:47 BP 120 / 80; Pulse 66; Resp 18; Temp 100.3; Pulse Ox 100% ; ko1 15:45 BP 118 / 78; Pulse 67; Resp 18; Temp 98.5; Pulse Ox 99% on R/A; ph ED Course: 12:34 Patient arrived in ED. mg5 12:38 Paul Clay DO is Attending Physician. ms3 12:51 Triage completed. ko1 12:51 Arm band placed on right wrist. Patient placed in waiting room, Patient notified of ko1 wait time. 13:34 Chest Pa And Lat (2 Views) XRAY In Process Unspecified. EDMS 15:34 Jen Giordano, OUMAR is Primary Nurse. ph 15:36 No provider procedures requiring assistance completed. Patient did not have IV access ph during this emergency room visit. O2 via room air. 15:37 Patient has correct armband on for positive identification. Bed in low position. Call ph light in reach. Side rails up X 1. Door closed. Noise minimized. Warm blanket given. 16:43 Cooper Mckeon DO is Referral Physician. ms3 17:00 Cooper Mckeon DO is Referral Physician. ms3 Administered Medications: 13:39 Drug: Acetaminophen PO 1000 mg PO once Route: PO; ph 14:00 Follow up: Response: No adverse reaction ph Medication: 15:36 VIS not applicable for this client. ph Outcome: 16:44 Discharge ordered by . ms3 17:01 Discharge ordered by . ms3 17:31 Patient left the ED. ph 17:31 Discharged to home ambulatory, ph 17:31 Condition: good 17:31 Discharge instructions given to patient, Instructed on discharge instructions, follow up and referral plans. Demonstrated understanding of instructions, follow-up care, Signatures: Dispatcher [employer] EDTN Jen Giordano RN RN Paul Clay DO DO ms3 Alexandra Aguirre, OUMAR RN ko1 Camryn Flores mg5
--- NOTE | 2023-11-11 16:45 | EDPHYS ---
Physician Documentation [facility] Name: Salvador Fuchs Age: 33 yrs Sex: Male : 1990 Arrival Date: 11/11/2023 Time: 12:29 Bed 20 Private MD: ED Physician Paul Clay HPI: 11/10 16:46 This 33 yrs old Male presents to ER via Ambulatory with complaints of Chest Pain, ms3 Shortness Of Breath. 16:46 33-year-old male with past medical history of back pain, compound fracture to L1 ms3 presents to the emergency department for 1 week of shortness of breath and chest pain with deep breathing. Patient endorses fevers and chills. Patient denies runny nose or sick contacts. Patient denies any alleviating or inciting factors. Historical: - Allergies: 12:51 SEAFOOD; ko1 12:51 SHELLFISH; ko1 - PMHx: 12:51 Back pain; compound fracture to L1; ko1 - PSHx: 12:51 Appendectomy; Cholecystectomy; ko1 - Immunization history:: Adult Immunizations unknown. - Infectious Disease History:: Denies. - Social history:: Smoking status: Patient denies any tobacco usage or history of. ROS: 16:46 Constitutional: Negative for fever, and chills. Neck: Negative for injury, pain, and ms3 swelling, 16:46 Abdomen/GI: Negative for abdominal pain, nausea, vomiting, diarrhea, and constipation, MS/Extremity: Negative for injury and deformity, Skin: Negative for injury, rash, and discoloration, 16:46 Cardiovascular: Positive for chest pain, 16:46 Respiratory: Positive for pleurisy, Exam: 16:46 Constitutional: This is a well developed, well nourished patient who is awake, alert, ms3 and in no acute distress. Head/Face: Normocephalic, atraumatic. Chest/axilla: Normal chest wall appearance and motion. Nontender with no deformity. Cardiovascular: Regular rate and rhythm with a normal S1 and S2. No gallops, murmurs, or rubs. Normal PMI, no JVD. No pulse deficits. Respiratory: Lungs have equal breath sounds bilaterally, clear to auscultation and percussion. No rales, rhonchi or wheezes noted. No increased work of breathing, no retractions or nasal flaring. Abdomen/GI: Soft, non-tender, with normal bowel sounds. No distension or tympany. No guarding or rebound. No evidence of tenderness throughout. 17:01 ECG was reviewed by the Attending Physician. ms3 Vital Signs: 12:47 BP 120 / 80; Pulse 66; Resp 18; Temp 100.3; Pulse Ox 100% ; ko1 15:45 BP 118 / 78; Pulse 67; Resp 18; Temp 98.5; Pulse Ox 99% on R/A; ph MDM: 13:14 Patient medically screened. ms3 16:46 Differential diagnosis: anxiety, chest wall pain, pneumonia, Flu versus COVID. ms3 17:02 Data reviewed: vital signs, nurses notes, lab test result(s), EKG, radiologic studies, ms3 and as a result, I will discharge patient. I considered the following discharge prescriptions or medication management in the emergency department Medications were administered in the Emergency Department. See MAR. Independent interpretation of the following test(s) in the Emergency Department EKG: See my EKG interpretation above. Counseling: I had a detailed discussion with the patient and/or guardian regarding the historical points, exam findings, and any diagnostic results supporting the discharge/admit diagnosis, lab results, radiology results, the need for outpatient follow up, to return to the emergency department if symptoms worsen or persist or if there are any questions or concerns that arise at home. Special discussion: I discussed with the patient/guardian in detail that at this point there is no indication for admission to the hospital. It is understood, however, that if the symptoms persist or worsen the patient needs to return immediately for re-evaluation. ED course: Discussed labs, EKG, chest x-ray with patient. Patient to follow-up with Dr. Mckeon in 2 to 3 days. All questions were answered. Return precautions discussed include worsening symptoms, or any other concerns. On reevaluation patient is alert and oriented x 4, no apparent distress, nontoxic-appearing, ambulatory in emergency room, speaking full sentences.. 11/10 12:59 Order name: SARS RAPID; Complete Time: 16:31 ms3 11/10 12:59 Order name: Flu; Complete Time: 16:31 ms3 11/10 12:59 Order name: Chest Pa And Lat (2 Views) XRAY; Complete Time: 13:40 ms3 11/10 16:50 Order name: EKG; Complete Time: 16:50 ms3 11/10 16:50 Order name: EKG - Nurse/Tech; Complete Time: 17:02 ms3 EC:01 Rate is 57 beats/min. Rhythm is regular. QRS [place] is Normal. MI interval is normal. QRS ms3 interval is normal. Clinical impression: Sinus bradycardia. Interpreted by me. Administered Medications: 13:39 Drug: Acetaminophen PO 1000 mg PO once Route: PO; ph 14:00 Follow up: Response: No adverse reaction ph Disposition Summary: 11/11/23 17:01 Discharge Ordered Notes: Location: Home(11/11/23 17:01) ms3 Condition: Stable(11/11/23 17:01) ms3 Diagnosis - Chest pain on breathing(11/11/23 17:01) ms3 Followup: ms3 - With: Cooper Mckeon DO - When: 2 - 3 days - Reason: Recheck today's complaints Discharge Instructions: - Discharge Summary Sheet ms3 - Nonspecific Chest Pain, Adult ms3 Forms: - Work release form aa5 - Medication Reconciliation Form ms3 - Antibiotic Education ms3 - Prescription Opioid Use ms3 - Patient Portal Instructions ms3 - Leadership Thank You Letter ms3 Signatures: Dispatcher [employer] Jen Solano, RN RN Paul Calderon DO DO ms3 Alexandra Aguirre RN RN ko1 Corrections: (The following items were deleted from the chart) 16:50 16:44 Home ms3 ms3 16:50 16:44 Stable ms3 ms3 16:50 16:44 Chest pain on breathing ms3 ms3
[2023-11-11 17:53] VITALS: BP 120/80; TEMP 100.3; O2SAT 100
== END 2023-11-11 17:31 | disposition home or self-care (01) ==
LOC: ER 12:29
DX: R07.1 Chest pain on breathing (principal); Z11.52 Encounter for screening for COVID-19; Z91.013 Allergy to seafood
CPT/HCPCS: 36415; 71046; 87804; 87811; 93005; 99284

== ENCOUNTER 2024-03-19 23:42 | Emergency (ER) | payer BC ==
--- OUTSIDE RECORDS SUMMARY | 2024-03-19 23:44 | XMS REPORT | Continuity of Care Document ---
Author Name Unknown Address [address] [facility] [address] [place] [address] [facility] thconnect Address [address] [facility] [place] [address] Care Team Providers Care Teacher Emotionally Impaired Name Role Phone Pcp, Patient Does Not Have A Primary Care Physic jeremy Nida Franco RN Attending Clinician Unavailable VALERIY BRANHAM Attending Clinician UnavailValeriy Martin Attending Clinician + [phone] Unknown, Attending Attending Clinician Unavailab le Doctor Unassigned, Abrams Attending Clinician U navailable Rosa Villanueva Attending Clinician [phone] ROSA BLAKE Attending Clinician Unavailbrooke Qureshi, [facility] Attending Clinician Un available King JUAN LUIS MD, Shakira Krishna Attending Clinician [phone] Only, Rafy Manley Test Attending Clinician UnavailAgnes Mota Attending Clinician [phone] AGNES RAMIREZ Attending Clinician Unavailable SHAKIRA MAJOR Attending Clinician Jonny Major MD, Shakira Wray Attending Clinician + [phone] SEVEN CRISTINA Attending Clinician Unavailable Seven Nick Attending Clinician [phone] UNKNOWN, ATTENDING Attending Clinician Unavailab Flores Attending Clinician Unavailable PAMELA Attending Clinician Unavailable Cha Admitting Clinician Unavailable PAMELA Admitting Clinician Unavailable Payers Payer Name Policy Type Policy Number Effective Date Expirati on Date Source [employer] [id number] 2020 00:00:00 Problems Condition Name Condition Details Condition Category Status Onset Date Resolution Date Last Treatment Date Treating Clinician Comments Source No known active problems No known active problems Disease [facility] Allergies, Adverse Reactions, Alerts Allergy Name Allergy Type Status Severity Reaction(s) Onset Date Inactive Date Treating Clinician Comments Source IODINE DRUG INGREDI Active Unknown-Cmnt 01-06 00:00: 00 [facility] Iodine Propensi ty to adverse reaction s Active Unknown - See comments 01-06 00:00: 00 [facility] SEAFOOD/ FISH Food Active High Swelling 2017-07 00:00: 00 [facility] Seafood/ Fish Propensi ty to adverse reaction s Active Swelling 2017-07 00:00: 00 [facility] Social History Social Habit Start Date Stop Date Quantity Comments Source Sexual orientation [facility] History of tobacco use Snuff User [facility] History SDOH Alcohol Frequency [facility] History SDOH Alcohol Std Drinks [facility] History SDOH Alcohol Binge [facility] History of Social function 2022-07-26 00:00:00 2022-07-26 00:00:00 [facility] Exposure to SARS-CoV-2 (event) 2021-11-11 00:00:00 2021-11-21 11:53:00 Not sure [facility] Tobacco use and exposure 2021-01-06 00:00:00 2021-01-06 00:00:00 User of smokeless tobacco [facility] Alcohol intake 2021-01-06 00:00:00 2021-01-06 00:00:00 Current drinker of alcohol (finding) [facility] Alcohol Comment 2021-01-06 00:00:00 2021-01-06 00:00:00 only occasional [facility] Sex Ass[birth year] At 1990 00:00:00 1990 00:00:00 [facility] Smoking Status Start Date Stop Date Source Smokes tobacco daily 2021-01-06 00:00:00 [facility] Medications Ordered Medication Name Filled Medication Name Start Date Stop Date Current Medication? Ordering Clinician Indication Dosage Frequency Signature (SIG) Comments Components Source benzonatate 200 mg capsule 07-26 00:00: 00 08-06 05:59 :00 No [id number] 200mg Take 1 capsule by mouth 3 (three) times daily as needed for Cough for up to 10 days. [facility] ondansetron 4 mg tablet 07-26 00:00: 00 08-01 05:59 :00 No [id number] 4mg Take 1 tablet by mouth every 8 (eight) hours as needed for Nausea and Vomiting (N/V) for up to 5 days. [facility] fluticasone propionate 50 mcg/actuati on nasal spray 11-21 00:00: 00 Yes [id number] 2{spray } Use 2 Sprays in each nostril daily. [facility] fexofenadin e-pseudoeph edrine (WENDI-D) 60-120 mg per tablet 11-21 00:00: 00 Yes [id number] 1{tbl} Take 1 tablet by mouth 2 (two) times daily. [facility] bromphenira mine-pseudo ephedrine-D M (BROMFED DM) 2-30-10 mg/5 mL syrup - 00:00: 00 07-26 00:00 :00 No [id number] 5mL Take 5 mL by mouth 4 (four) times daily as needed for Congestion /Allergies or Cough. [facility] benzonatate 100 mg capsule 07-28 00:00: 00 Yes [id number] 100mg Take 1 capsule by mouth every 8 (eight) hours as needed for Cough. [facility] azithromyci n 500 mg tablet 04-17 00:00: 00 07-26 00:00 :00 No [id number] 500mg Take 1 tablet by mouth daily. [facility] benzonatate 200 mg capsule 04-17 00:00: 00 11-21 00:00 :00 No [id number] 200mg Take 1 capsule by mouth 3 (three) times daily as needed for Cough. [facility] ondansetron 4 mg tablet 04-15 00:00: 00 04-21 04:59 :00 No [id number] 4mg Take 1 tablet by mouth every 8 (eight) hours for 5 days. [facility] bromphenira mine-pseudo ephedrine-D M (BROMFED DM) 2-30-10 mg/5 mL syrup 03-11 00:00: 00 04-17 00:00 :00 No [id number] 5mL Take 5 mL by mouth 4 (four) times daily as needed for Congestion /Allergies or Cough. [facility] escitalopra m oxalate 10 mg tablet 01-06 00:00: 00 07-26 00:00 :00 No [id number] 10mg Take 1 tablet by mouth daily. [facility] Vital Signs Vital Name Observation Time Observation Value Comments S ourmary Systolic blood pressure 2022-07-26 15:36:00 120 mm[Hg] [facility] Diastolic blood pressure 2022-07-26 15:36:00 77 mm[Hg] [facility] Heart rate 2022-07-26 15:36:00 86 /min [facility] Body temperature 2022-07-26 15:36:00 37.11 Mulu [facility] Respiratory rate 2022-07-26 15:36:00 16 /min [facility] Body height 2022-07-26 15:36:00 175.3 cm [facility] Body weight 2022-07-26 15:36:00 124.785 kg [facility] BMI 2022-07-26 15:36:00 40.63 kg/m2 [facility] Oxygen saturation in Arterial blood by Pulse oximetry 2022-07-26 15:36:00 97 /min [facility] Systolic blood pressure 2021-11-21 16:58:00 112 mm[Hg] [facility] Diastolic blood pressure 2021-11-21 16:58:00 73 mm[Hg] [facility] Heart rate 2021-11-21 16:58:00 75 /min [facility] Body temperature 2021-11-21 16:58:00 36.61 Mulu [facility] Respiratory rate 2021-11-21 16:58:00 18 /min [facility] Body height 2021-11-21 16:58:00 175.3 cm [facility] Body weight 2021-11-21 16:58:00 124.785 kg [facility] BMI 2021-11-21 16:58:00 40.63 kg/m2 [facility] Oxygen saturation in Arterial blood by Pulse oximetry 2021-11-21 16:58:00 98 /min [facility] Systolic blood pressure 2021-07-28 17:50:00 124 mm[Hg] [facility] Diastolic blood pressure 2021-07-28 17:50:00 82 mm[Hg] [facility] Heart rate 2021-07-28 17:50:00 86 /min [facility] Body temperature 2021-07-28 17:50:00 37.22 Mulu [facility] Respiratory rate 2021-07-28 17:50:00 18 /min [facility] Body height 2021-07-28 17:50:00 177.8 cm [facility] Body weight 2021-07-28 17:50:00 130.545 kg [facility] BMI 2021-07-28 17:50:00 41.30 kg/m2 [facility] Oxygen saturation in Arterial blood by Pulse oximetry 2021-07-28 17:50:00 98 /min [facility] Systolic blood pressure 2021-04-17 16:21:00 115 mm[Hg] [facility] Diastolic blood pressure 2021-04-17 16:21:00 75 mm[Hg] [facility] Heart rate 2021-04-17 16:21:00 91 /min [facility] Body temperature 2021-04-17 16:21:00 36.94 Mulu [facility] Body height 2021-04-17 16:21:00 177.8 cm [facility] Body weight 2021-04-17 16:21:00 129.729 kg [facility] BMI 2021-04-17 16:21:00 41.04 kg/m2 [facility] Oxygen saturation in Arterial blood by Pulse oximetry 2021-04-17 16:21:00 99 /min [facility] Procedures Procedure Date / Time Performed Performing Clinicia n Source ASSIGNMENT OF BENEFITS 2022-07-26 15:32:01 Docto r Unassigned, Abrams [facility] Encounters Start Date/Time End Date/Time Encounter Type Admission Type Attending [facility] Care Facility Care Department Encounter ID Source 2023-04-09 10:58:33 2023-04-09 10:58:33 Outpatient SFA SFA [id number] Yusuf F John 2022-07-27 00:00:00 2022-07-27 00:00:00 Letter (Out) Joan Nida [facility] [id number] 350.1.13.10 4.2.7.2.686 [id number] [facility] 2022-07-26 09:40:00 2022-07-26 09:59:32 Outpatient R VALERIY BRANHAM [facility] [id number] [facility] 2022-07-26 09:40:00 2022-07-26 09:59:32 Urgent Care Valeriy Branham, Attending [facility] TAE WAT[facility] [id number] 350.1.13.10 4.2.7.2.686 [id number] [facility] 2022-07-26 00:00:00 2022-07-26 00:00:00 Orders Only Doctor Unassigned, Abrams [facility] 1.840.114 350.1.13.10 4.2.7.2.686 [id number] [facility] 2021-11-21 12:00:00 2021-11-21 12:20:00 Urgent Care Joao [facility] 1..840.114 350.1.13.10 4.2.7.2.686 [id number] [facility] 2021-11-21 12:00:00 2021-11-21 12:00:00 Outpatient R ROSA BLAKE [facility] [id number] [facility] 2021-09-19 11:45:00 2021-09-19 12:05:00 Nurse Visit Nurse, Ang [facility] Unknown, Attending Valeriy Branham [facility] 1..840.114 350.1.13.10 4.2.7.2.686 [id number] [facility] 2021-09-19 12:20:00 2021-09-19 12:02:41 Outpatient R VALERIY BRANHAM [facility] [id number] [facility] 2021-07-28 11:40:00 2021-07-28 12:19:26 Outpatient R ROSA BLAKE [facility] [id number] [facility] 2021-07-28 11:40:00 2021-07-28 12:19:26 Urgent Care Shakira Rivera [facility] 1..840.114 350.1.13.10 4.2.7.2.686 [id number] [facility] 2021-07-20 16:30:00 2021-07-20 16:45:00 Laboratory Only Only, Ang Db Test Green, [facility] 1..840.114 350.1.13.10 4.2.7.2.686 [id number] [facility] 2021-07-20 16:30:00 2021-07-20 16:30:00 Outpatient R AGNES RAMIREZ [facility] [id number] [facility] 2021-04-24 00:00:00 2021-04-24 00:00:00 Outpatient PRIV PRIV [id number] [facility] 2021-04-24 00:00:00 2021-04-24 00:00:00 Outpatient PRIV PRIV [id number] [facility] 2021-04-24 00:00:00 2021-04-24 00:00:00 Outpatient PRIV PRIV [id number] [facility] 2021-04-24 00:00:00 2021-04-24 00:00:00 Outpatient PRIV PRIV [id number] [facility] 2021-04-17 11:30:00 2021-04-17 11:40:43 Outpatient R SHAKIRA MAJOR [facility] [id number] [facility] 2021-04-17 11:11:48 2021-04-17 11:26:48 Office Visit Ac Shakira Wray [facility] 1.2.840.114 350.1.13.10 4.2.7.2.686 [id number] [facility] 2021-04-15 09:20:00 2021-04-15 09:29:38 Outpatient R SEVEN CRISTINA [facility] [id number] [facility] 2021-04-15 09:10:16 2021-04-15 09:29:38 Urgent Care Jonnie [facility] 1.2.840.114 350.1.13.10 4.2.7.2.686 [id number] [facility] 2021-04-15 00:00:00 2021-04-15 00:00:00 Patient Secure Msg Doctor Unassigned, Abrams [facility] 1.84.114 350.1.13.10 4.2.7.2.686 [id number] [facility] 2021-04-15 00:00:00 2021-04-15 00:00:00 Telephone Seven Cristina [facility] 1.84.114 350.1.13.10 4.2.7.2.686 [id number] [facility] 2021-03-13 10:20:00 2021-03-13 10:20:00 Outpatient R ROSA BLAKE [facility] [id number] [facility] 2021-03-11 13:40:00 2021-03-11 13:40:00 Outpatient R HELENE WALKER [facility] [id number] [facility] 2021-03-06 08:15:00 2021-03-06 08:15:00 Outpatient SHAKIRA LEVY [facility] [id number] [facility] 2021-02-03 09:15:00 2021-02-03 09:15:00 Outpatient SHAKIRA LEVY [facility] [id number] [facility] 2021-02-02 11:30:00 2021-02-02 11:30:00 Outpatient SHAKIRA LEVY [facility] [id number] [facility] 2021-01-19 00:00:00 2021-01-19 00:00:00 Patient Secure Ac Shakira Wray [facility] ONE 1.840.114 350.1.13.10 4.2.7.2.686 [id number] [facility] 2021-01-06 13:30:00 2021-01-06 13:30:00 Outpatient SHAKIRA LEVY [facility] [id number] [facility] 2020-09-12 12:27:00 2020-09-12 12:27:00 Outpatient Cha Roscoe [facility] [id number] [facility] 2020-04-22 09:39:00 2020-04-22 09:39:00 Outpatient ELIANE_LOUISA CERRATO [facility] [id number] [facility]
[2024-03-20] MEDS ORDERED: KETOROLAC 30 MG/ML INJ ONE (00:28)
[2024-03-20] MEDS ORDERED: MORPHINE 4 MG/ML SYR ONE (00:28)
[2024-03-20] MEDS ORDERED: methocarbamoL 500 MG TAB ONE (00:28)
--- NOTE | 2024-03-20 02:04 | ER ---
Nurse's Notes [facility] Name: Salvador Fuchs Age: 34 yrs Sex: Male : 1990 Arrival Date: 03/19/2024 Time: 23:42 Bed 16 Private MD: Diagnosis: Low back pain;Exacerbation of chronic back pain, L3-L4 disc herniation, L1 superior endplate compression fracture Presentation: 03/19 23:50 Chief complaint: Patient states: low back pain that radiates down R leg that began ss after falling in the shower this evening. Coronavirus screen: Client denies travel out of the [place] in the last 14 days. Ebola Screen: Patient denies exposure to infectious person. Patient denies travel to an Ebola-affected area in the 21 days before illness onset. Initial Sepsis Screen: Does the patient meet any 2 criteria? No. Patient's initial sepsis screen is negative. Does the patient have a suspected source of infection? No. Patient's initial sepsis screen is negative. Risk Assessment: Do you want to hurt yourself or someone else? Patient reports no desire to harm self or others. Onset of symptoms was March 19, 2024. 23:50 Method Of Arrival: Ambulatory ss 23:50 Acuity: KATHLEEN 4 ss Triage Assessment: 23:51 General: Appears in no apparent distress. comfortable, Behavior is calm, cooperative. ss Neuro: Level of Consciousness is awake, alert, obeys commands, Oriented to person, place, time, situation. Respiratory: Respiratory effort is even, unlabored, Respiratory pattern is regular, symmetrical. Historical: - Allergies: 23:51 SHELLFISH; ss 23:51 SEAFOOD; ss - Home Meds: 23:51 None [Active]; ss - PMHx: 23:51 Back pain; compound fracture to L1; ss - PSHx: 23:51 Appendectomy; Cholecystectomy; ss - Immunization history:: Client reports having NOT received the Covid vaccine. - Infectious Disease History:: Denies. - Social history:: Smoking status: Patient reports the use of cigarette tobacco products, smokes one-half pack cigarettes per day. - Family history:: not pertinent. Screenin/30 00:01 [facility] ED Fall Risk Assessment (Adult) History of falling in the last 3 months, jj7 including since admission Yes- single mechanical fall (1 pt) Confusion or Disorientation No (0 pts) Intoxicated or Sedated No (0 pts) Impaired Gait No (0 pts) Mobility Assist Device Used No (0 pt) Altered Elimination No (0 pt) Score/Fall Risk Level 0 - 2 = Low Risk Oriented to surroundings, Maintained a safe environment, Educated pt \T\ family on fall prevention, incl call for assistance when getting out of bed. Abuse screen: Denies threats or abuse. Nutritional screening: No deficits noted. Tuberculosis screening: No symptoms or risk factors identified. Assessment: 00:01 General: Appears in no apparent distress. uncomfortable, Behavior is calm, cooperative, jj7 appropriate for age. Pain: Complains of pain in back and right leg. Musculoskeletal: Reports pain in back and right leg. Vital Signs: 03/19 23:50 BP 133 / 84; Pulse 73; Resp 15; Temp 98(TE); Pulse Ox 100% on R/A; Weight 123.83 kg; ss Height 5 ft. 10 in. ; Pain 10/10; 03/20 01:00 BP 120 / 88; Pulse 60; Resp 17; Pulse Ox 96% ; jj7 02:12 BP 112 / 69; Pulse 54; Resp 17; Temp 97.6; Pulse Ox 97% ; jj7 03/19 23:50 Body Mass Index 39.17 (123.83 kg, 177.8 cm) ss 03/19 23:50 Pain Scale: Adult ss Marianela Coma Score: 06:08 Eye Response: spontaneous(4). Motor Response: obeys commands(6). Verbal Response: sp4 oriented(5). Total: 15. ED Course: 03/19 23:46 Patient arrived in ED. jj6 23:51 Triage completed. ss 23:51 Arm band placed on right wrist. ss 23:54 Larry Mejia MD is Attending Physician. sp4 03/20 00:01 Nicole Wilder RN is Primary Nurse. jj7 00:01 Patient has correct armband on for positive identification. Bed in low position. Call jj7 light in reach. Provided Education on: USE OF CALL . 00:[address] jj7 00:50 CT Lumbar Spine Wo Con In Process Unspecified. EDMS 00:[address] In Process Unspecified. EDMS 02:32 No provider procedures requiring assistance completed. Patient did not have IV access jj7 during this emergency room visit. Administered Medications: 00:46 Drug: morphine IM 8 mg IM once Route: IM; Site: left deltoid; jj7 02:32 Follow up: Response: No adverse reaction bm8 00:46 Drug: Ketorolac IM 60 mg IM once Route: IM; Site: right deltoid; jj7 02:32 Follow up: Response: No adverse reaction bm8 00:46 Drug: Methocarbamol PO 1500 mg PO once Route: PO; jj7 02:32 Follow up: Response: No adverse reaction bm8 02:29 Drug: [place] PO 10 mg-325 mg 1 tabs PO once Route: PO; bm8 02:32 Follow up: Response: No adverse reaction bm8 02:29 Drug: Diazepam PO 5 mg PO once Route: PO; bm8 02:31 Follow up: Response: No adverse reaction bm8 Medication: 00:01 VIS not applicable for this client. jj7 Outcome: 02:04 Discharge ordered by MD. morgan 02:32 Discharged to home ambulatory, with significant other, jj7 02:32 Condition: improved 02:32 Discharge instructions given to patient, Instructed on discharge instructions, follow up and referral plans. medication usage, Demonstrated understanding of instructions, follow-up care, medications, Prescriptions given X 2, 02:32 Patient left the ED. jj7 Signatures: Dispatcher [employer] EDDC Mena Casper RN RN Bhavana Pineda jj6 Nicole Wilder RN RN jLarry Springer MD MD sp4 Mohsen Rose RN RN bm8 Corrections: (The following items were deleted from the chart) 02:41 02:41 Patient left the ED. jj7 jj7
--- NOTE | 2024-03-20 02:04 | EDPHYS ---
Physician Documentation [facility] Name: Salvador Fuchs Age: 34 yrs Sex: Male : 1990 Arrival Date: 03/19/2024 Time: 23:42 Bed 16 Private MD: ED Physician Larry Mejia HPI: 03/19 23:54 This 34 yrs old Male presents to ER via Ambulatory with complaints of Fall sp4 Injury, Back Injury. 03/20 06:09 34 year old presents with acute fall in the shower and worsening of his chronic lower sp4 back pain. . Historical: - Allergies: 03/19 23:51 SHELLFISH; ss 23:51 SEAFOOD; ss - Home Meds: 23:51 None [Active]; ss - PMHx: 23:51 Back pain; compound fracture to L1; ss - PSHx: 23:51 Appendectomy; Cholecystectomy; ss - Immunization history:: Client reports having NOT received the Covid vaccine. - Infectious Disease History:: Denies. - Social history:: Smoking status: Patient reports the use of cigarette tobacco products, smokes one-half pack cigarettes per day. - Family history:: not pertinent. ROS: 03/20 06:09 Constitutional: Negative for fever, chills, and weight loss, Positive for worsening sp4 back pain All other systems are negative, Exam: 06:08 Constitutional: This is a well developed, well nourished patient who is awake, alert, sp4 and in no acute distress. Head/Face: Normocephalic, atraumatic. Eyes: Pupils equal round and reactive to light, extra-ocular motions intact. Lids and lashes normal. Conjunctiva and sclera are not injected. Cornea within normal limits. Periorbital areas with no swelling, redness, or edema. ENT: Nares patent. No nasal discharge, no septal abnormalities noted. Tympanic membranes are normal and external auditory canals are clear. Oropharynx with no redness, swelling, or masses, exudates, or evidence of obstruction, uvula midline. Mucous membranes moist. Neck: Trachea midline, no thyromegaly or masses palpated, and no cervical lymphadenopathy. Supple, full range of motion without nuchal rigidity, or vertebral point tenderness. Chest/axilla: Normal chest wall appearance and motion. Nontender with no deformity. No lesions are appreciated. Cardiovascular: Regular rate and rhythm with a normal S1 and S2. No gallops, murmurs, or rubs. Normal PMI, no JVD. No pulse deficits. Respiratory: Lungs have equal breath sounds bilaterally, clear to auscultation and percussion. No rales, rhonchi or wheezes noted. No increased work of breathing, no retractions or nasal flaring. Abdomen/GI: Soft, with normal bowel sounds. No distension or tympany. No guarding or rebound. No evidence of tenderness throughout. Back: No spinal tenderness. No costovertebral tenderness. Skin: Warm, dry with normal turgor. Normal color with no rashes, no lesions, and no evidence of cellulitis. MS/ Extremity: Pulses equal, no cyanosis. Neurovascular intact. Full, normal range of motion. Neuro: Awake and alert, GCS 15, oriented to person, place, time, and situation. Cranial nerves II-XII grossly intact. Motor strength 5/5 in all extremities. Sensory grossly intact. Psych: Awake, alert, with orientation to person, place and time. Behavior, mood, and affect are within normal limits Vital Signs: 03/19 23:50 BP 133 / 84; Pulse 73; Resp 15; Temp 98(TE); Pulse Ox 100% on R/A; Weight 123.83 kg; ss Height 5 ft. 10 in. ; Pain 10/10; 03/20 01:00 BP 120 / 88; Pulse 60; Resp 17; Pulse Ox 96% ; jj7 02:12 BP 112 / 69; Pulse 54; Resp 17; Temp 97.6; Pulse Ox 97% ; jj7 03/19 23:50 Body Mass Index 39.17 (123.83 kg, 177.8 cm) 03/19 23:50 Pain Scale: Adult Marianela Coma Score: 06:08 Eye Response: spontaneous(4). Motor Response: obeys commands(6). Verbal Response: sp4 oriented(5). Total: 15. MDM: 03/19 23:56 Patient medically screened. sp4 03/20 01:50 ED course: EXAM DESCRIPTION: CT LUMBAR SPINE WITHOUT IV CONTRAST 03/20/2024 1:08 AM CDT sp4 CLINICAL HISTORY: 34 years, Male, Lumbar pain, fall, low back pain that radiates down right leg. COMPARISON: CT Lumbar spine 01/30/2024. TECHNIQUE: Multiple transaxial tomograms of the lumbar spine were performed utilizing 2 mm slight thickness at 2 mm interval reconstruction without the administration of IV contrast. Subsequent 2-D multiplanar reformats in the coronal and sagittal plane were performed and reviewed. An individualized dose optimization technique, Automated Exposure Control, was utilized for the performed procedure. FINDINGS: There is normal mineralization of the osseous structures. The vertebral body heights are maintained. There is minimal anterior superior endplate compression deformity at L1 similar to prior study. The lumbar lordosis is maintained, without significant spondylolisthesis. There is no epidural fluid collection/hematoma. The prevertebral and paraspinal soft tissues are unremarkable. L1-L2: There is no significant disc herniation, spinal canal stenosis, or neuroforaminal stenosis. L2-L3: There is no significant disc herniation, spinal canal stenosis, or neuroforaminal stenosis. L3-L4: Again identified presence of a significant herniated disc with broad-based component on sagittal image 43/83 and axial image 91/161 with severe spinal canal narrowing similar to prior study. L4-L5: There is no significant disc herniation, spinal canal stenosis, or neuroforaminal stenosis. L5-S1: There is no significant disc herniation, spinal canal stenosis, or neuroforaminal stenosis. IMPRESSION: Stable presence of a herniated disc with broad-based component at L3-L4 with probably significant spinal canal narrowing. Minimal anterior superior endplate compression deformity at L1 similar to prior study. Electronically signed by: Pilo Bird MD 03/20/2024 01:15 AM . ED course: CLINICAL HISTORY: Acute lumbar spine pain. COMPARISON: CT Lumbar spine 03/20/2024. TECHNIQUE: CT PELVIS WITHOUT IV CONTRAST on 03/20/2024 12:15 AM CDT This exam was performed according to our departmental dose-optimization program, which includes automated exposure control, adjustment of the mA and/or kV according to patient size and/or use of iterative reconstruction technique. FINDINGS: There is no bowel obstruction. Urinary bladder is unremarkable. There is no free fluid. Skeleton: There are no acute osseous findings. No suspicious bony lesions. IMPRESSION: No acute fracture. . 02:03 Data reviewed: vital signs, nurses notes. sp4 06:08 Differential diagnosis: abrasion, closed head injury, contusion, fracture, laceration, sp4 multiple trauma. Consideration of Admission/Observation Escalation of care including admission/observation considered. 03/20 00:14 Order name: CT Lumbar Spine Wo Con sp4 03/20 00:15 Order name: Pelvis Wo Cont CT sp4 Administered Medications: 00:46 Drug: morphine IM 8 mg IM once Route: IM; Site: left deltoid; jj7 02:32 Follow up: Response: No adverse reaction bm8 00:46 Drug: Ketorolac IM 60 mg IM once Route: IM; Site: right deltoid; jj7 02:32 Follow up: Response: No adverse reaction bm8 00:46 Drug: Methocarbamol PO 1500 mg PO once Route: PO; jj7 02:32 Follow up: Response: No adverse reaction bm8 02:29 Drug: [place] PO 10 mg-325 mg 1 tabs PO once Route: PO; bm8 02:32 Follow up: Response: No adverse reaction bm8 02:29 Drug: Diazepam PO 5 mg PO once Route: PO; bm8 02:31 Follow up: Response: No adverse reaction bm8 Disposition Summary: 03/20/24 02:04 Discharge Ordered Notes: Location: Home sp4 Problem: new sp4 Symptoms: have improved sp4 Condition: Stable sp4 Diagnosis - Low back pain sp4 - Exacerbation of chronic back pain, L3-L4 disc herniation, L1 superior endplate sp4 compression fracture Followup: sp4 - With: Private Physician - When: 7 - 10 days - Reason: Recheck today's complaints Discharge Instructions: - Discharge Summary Sheet sp4 - Acute Back Pain, Adult sp4 Forms: - Work release form sp4 - Patient Portal Instructions sp4 Prescriptions: - ketorolac 10 mg Oral tablet - take 1 tablet ORAL route every 8 hours for 4 days; 30 tablet; Refills: 0, sp4 Product Selection Permitted - methocarbamol 750 mg Oral tablet - take 2 tablets ORAL route 4 times per day for 10 days PRN muscle soreness; 60 sp4 tablet; Refills: 0, Product Selection Permitted Signatures: Dispatcher [employer] Mena Zhou RN RN Nicole Villalpando RN RN jj7 Larry Mejia MD MD sp4 Mohsen Rose RN RN bm8 Corrections: (The following items were deleted from the chart) 00:15 00:15 Spine Lumbar Wo Con+[id number] ordered. EDMS EDMS
[2024-03-20] MEDS ORDERED: HYDROCODONE/APAP 10/325 TAB ONE (02:25)
[2024-03-20] MEDS ORDERED: DIAZEPAM 5 MG TABLET ONE (02:26)
[2024-03-20 02:49] VITALS: BP 112/69; TEMP 97.6; O2SAT 97
--- NOTE | 2024-03-20 10:43 | RAD REPORT ---
EXAM DESCRIPTION: CT - Spine Lumbar Wo Con - 03/20/2024 6:04 am CLINICAL HISTORY: 34 years, Male, Lumbar pain, fall, low back pain that radiates down right leg. COMPARISON: CT Lumbar spine 01/30/2024. TECHNIQUE: Multiple transaxial tomograms of the lumbar spine were performed utilizing 2 mm slight th ickness at 2 mm interval reconstruction without the administration of IV contrast. Subsequent 2-D mul tiplanar reformats in the coronal and sagittal plane were performed and reviewed. An individualized dose optimization technique, Automated Exposure Control, was utilized for the perfo rmed procedure. FINDINGS: There is normal mineralization of the osseous structures. The vertebral body heights are m aintained. There is minimal anterior superior endplate compression deformity at L1 similar to prior study. The lumbar lordosis is maintained, without significant spondylolisthesis. There is no epidural fluid collection/hematoma. The prevertebral and paraspinal soft tissues are unremarkable. L1-L2: There is no significant disc herniation, spinal canal stenosis, or neuroforaminal stenosis. L2-L3: There is no significant disc herniation, spinal canal stenosis, or neuroforaminal stenosis. L3-L4: Again identified presence of a significant herniated disc with broad-based component on sagitt al image 43/83 and axial image 91/161 with severe spinal canal narrowing similar to prior study. L4-L5: There is no significant disc herniation, spinal canal stenosis, or neuroforaminal stenosis. L5-S1: There is no significant disc herniation, spinal canal stenosis, or neuroforaminal stenosis. IMPRESSION: Stable presence of a herniated disc with broad-based component at L3-L4 with probably si gnificant spinal canal narrowing. Minimal anterior superior endplate compression deformity at L1 similar to prior study. Electronically signed by: Pilo Bird MD 03/20/2024 01:15 AM CDT RP Due to temporary technical issues with the PACS/Fluency reporting system, reports are being signed by the in house radiologist without review as a courtesy to ensure prompt reporting. The interpreting r adiologist is fully responsible for the content of the report.
--- NOTE | 2024-03-20 10:44 | RAD REPORT ---
EXAM DESCRIPTION: CT - Pelvis Wo Cont - 03/20/2024 6:05 am CLINICAL HISTORY: Acute lumbar spine pain. COMPARISON: CT Lumbar spine 03/20/2024. TECHNIQUE: CT PELVIS WITHOUT IV CONTRAST on 03/20/2024 12:15 AM CDT This exam was performed according to our departmental dose-optimization program, which includes autom ated exposure control, adjustment of the mA and/or kV according to patient size and/or use of iterati ve reconstruction technique. FINDINGS: There is no bowel obstruction. Urinary bladder is unremarkable. There is no free fluid. Skeleton: There are no acute osseous findings. No suspicious bony lesions. IMPRESSION: No acute fracture. Electronically signed by: Tolu Martinez MD 03/20/2024 01:15 AM CDT RP Due to temporary technical issues with the PACS/Fluency reporting system, reports are being signed by the in house radiologist without review as a courtesy to ensure prompt reporting. The interpreting r adiologist is fully responsible for the content of the report.
== END 2024-03-20 02:41 | disposition home or self-care (01) ==
LOC: ER 23:42
DX: M51.26 Other intervertebral disc displacement, lumbar region (principal); S32.018A Other fracture of first lumbar vertebra, initial encounter for closed fracture; F17.210 Nicotine dependence, cigarettes, uncomplicated; W18.30XA Fall on same level, unspecified, initial encounter; Y93.E1 Activity, personal bathing and showering
CPT/HCPCS: 72131; 72192; 96372; 99284

== ENCOUNTER 2025-03-01 07:57 | Emergency (ER) | payer BC ==
--- OUTSIDE RECORDS SUMMARY | 2025-03-01 08:01 | XMS REPORT | Continuity of Care Document ---
Author Name Unknown Address [address] [facility] [address] [place] [address] [facility] Address [address] [facility] [place] [address] Care Team Providers Care Building Cleaner Name Role Phone Pcp, Patient Does Not Have A Primary Care Physic jeremy Nida Franco RN Attending Clinician Unavailable VALERIY BRANHAM Attending Clinician UnavailValeriy Martin Attending Clinician + [phone] Unknown, Attending Attending Clinician Unavailab le Doctor Unassigned, [place] Attending Clinician U navailable Rosa Villanueva Attending Clinician [phone] ROSA BLAKE Attending Clinician Unavailbrooke Qureshi, [facility] Attending Clinician Un available King JUAN LUIS MD, Shakira Krishna Attending Clinician [phone] Only, Rafy Manley Test Attending Clinician UnavailAgnes Mota Attending Clinician [phone] AGNES RAMIREZ Attending Clinician Unavailable SHAKIRA MAJOR Attending Clinician Jonny Major MD, Shakira Wray Attending Clinician + [phone] SEVEN CRISTINA Attending Clinician Unavailable Seven Nick Attending Clinician [phone] UNKNOWN, ATTENDING Attending Clinician Unavailab Flores Attending Clinician Unavailable PAMELA Attending Clinician Unavailable Cha Admitting Clinician Unavailable PAMELA Admitting Clinician Unavailable Payers Payer Name Policy Type Policy Number Effective Date Expirati on Date Source [facility] [employer] [employer] [id number] 2020 00:00:00 Problems Condition Name Condition Details Condition Category Status Onset Date Resolution Date Last Treatment Date Treating Clinician Comments Source No known active problems No known active problems Disease [facility] Allergies, Adverse Reactions, Alerts Allergy Name Allergy Type Status Severity Reaction(s) Onset Date Inactive Date Treating Clinician Comments Source IODINE DRUG INGREDI Active Unknown-Cmnt 01-06 00:00: [address] [facility] Iodine Propensi ty to adverse reaction s Active Unknown - See comments 01-06 00:00: [address] [facility] SEAFOOD/ FISH Food Active High Swelling 2017-07 00:00: [address] [facility] Seafood/ Fish Propensi ty to adverse reaction s Active Swelling 2017-07 00:00: 00 [facility] Social History Social Habit Start Date Stop Date Quantity Comments Source Sexual orientation U [facility] History of tobacco use Snuff User [facility] History SDOH Alcohol Frequency [facility] History SDOH [facility] History SDOH Alcohol Binge [facility] History of Social function 2022-07-26 00:00:00 2022-07-26 00:00:00 [facility] Exposure to SARS-CoV-2 (event) 2021-11-11 00:00:00 2021-11-21 11:53:00 Not sure [facility] Tobacco use and exposure 2021-01-06 00:00:00 2021-01-06 00:00:00 User of smokeless tobacco [facility] Alcohol intake 2021-01-06 00:00:00 2021-01-06 00:00:00 Current drinker of alcohol (finding) [facility] Alcohol Comment 2021-01-06 00:00:00 2021-01-06 00:00:00 only occasional [facility] Sex Ass[birth year] At 1990 00:00:00 1990 00:00:00 [facility] Smoking Status Start Date Stop Date Source Smokes tobacco daily 2021-01-06 00:00:00 [facility] Medications Ordered Medication Name Filled Medication Name Start Date Stop Date Current Medication? Ordering Clinician Indication Dosage Frequency Signature (SIG) Comments Components Source benzonatate 200 mg capsule 07-26 00:00: 00 08-06 05:59 :00 No [id number] 200mg Take 1 capsule by mouth 3 (three) times daily as needed for Cough for up to 10 days. [facility] ondansetron 4 mg tablet 07-26 00:00: 00 08-01 05:59 :00 No [id number] 4mg Take 1 tablet by mouth every 8 (eight) hours as needed for Nausea and Vomiting (N/V) for up to 5 days. [facility] fluticasone propionate 50 mcg/actuati on nasal spray 11-21 00:00: 00 Yes [id number] 2{spray } Use 2 Sprays in each nostril daily. [facility] fexofenadin e-pseudoeph edrine (WENDI-D) 60-120 mg per tablet - 00:00: 00 Yes [id number] 1{tbl} Take 1 tablet by mouth 2 (two) times daily. [facility] bromphenira mine-pseudo ephedrine-D M (BROMFED DM) 2-30-10 mg/5 mL syrup - 00:00: 00 07-26 00:00 :00 No [id number] 5mL Take 5 mL by mouth 4 (four) times daily as needed for Congestion /Allergies or Cough. [facility] benzonatate 100 mg capsule - 00:00: 00 Yes [id number] 100mg Take 1 capsule by mouth every 8 (eight) hours as needed for Cough. [facility] azithromyci n 500 mg tablet 04-17 00:00: 00 07-26 00:00 :00 No [id number] 500mg Take 1 tablet by mouth daily. [facility] benzonatate 200 mg capsule 04-17 00:00: 00 11-21 00:00 :00 No [id number] 200mg Take 1 capsule by mouth 3 (three) times daily as needed for Cough. [facility] ondansetron 4 mg tablet 04-15 00:00: 00 04-21 04:59 :00 No [id number] 4mg Take 1 tablet by mouth every 8 (eight) hours for 5 days. [facility] bromphenira mine-pseudo ephedrine-D M (BROMFED DM) 2-30-10 mg/5 mL syrup 03-11 00:00: 00 04-17 00:00 :00 No [id number] 5mL Take 5 mL by mouth 4 (four) times daily as needed for Congestion /Allergies or Cough. [facility] escitalopra m oxalate 10 mg tablet 01-06 00:00: 00 07-26 00:00 :00 No [id number] 10mg Take 1 tablet by mouth daily. [facility] Vital Signs Vital Name Observation Time Observation Value Comments S radha Systolic blood pressure 2022-07-26 15:36:00 120 mm[Hg] [facility] Diastolic blood pressure 2022-07-26 15:36:00 77 mm[Hg] [facility] acute hospital Heart rate 2022-07-26 15:36:00 86 /min [facility] Body temperature 2022-07-26 15:36:00 37.11 Mulu [facility] Respiratory rate 2022-07-26 15:36:00 16 /min [facility] Body height 2022-07-26 15:36:00 175.3 cm [facility] Body weight 2022-07-26 15:36:00 124.785 kg [facility] BMI 2022-07-26 15:36:00 40.63 kg/m2 [facility] Oxygen saturation in Arterial blood by Pulse oximetry 2022-07-26 15:36:00 97 /min [facility] acute hospital Systolic blood pressure 2021-11-21 16:58:00 112 mm[Hg] [facility] acute hospital Diastolic blood pressure 2021-11-21 16:58:00 73 mm[Hg] General acute hospital Heart rate 2021-11-21 16:58:00 75 /min [facility] Body temperature 2021-11-21 16:58:00 36.61 Mulu [facility] Respiratory rate 2021-11-21 16:58:00 18 /min [facility] Body height 2021-11-21 16:58:00 175.3 cm [facility] Body weight 2021-11-21 16:58:00 124.785 kg [facility] BMI 2021-11-21 16:58:00 40.63 kg/m2 [facility] Oxygen saturation in Arterial blood by Pulse oximetry 2021-11-21 16:58:00 98 /min [facility] acute hospital Systolic blood pressure 2021-07-28 17:50:00 124 mm[Hg] General acute hospital Diastolic blood pressure 2021-07-28 17:50:00 82 mm[Hg] General acute hospital Heart rate 2021-07-28 17:50:00 86 /min [facility] Body temperature 2021-07-28 17:50:00 37.22 Mulu [facility] Respiratory rate 2021-07-28 17:50:00 18 /min [facility] Body height 2021-07-28 17:50:00 177.8 cm [facility] Body weight 2021-07-28 17:50:00 130.545 kg [facility] BMI 2021-07-28 17:50:00 41.30 kg/m2 [facility] Oxygen saturation in Arterial blood by Pulse oximetry 2021-07-28 17:50:00 98 /min [facility] acute hospital Systolic blood pressure 2021-04-17 16:21:00 115 mm[Hg] General acute hospital Diastolic blood pressure 2021-04-17 16:21:00 75 mm[Hg] General acute hospital Heart rate 2021-04-17 16:21:00 91 /min [facility] Body temperature 2021-04-17 16:21:00 36.94 Mulu [facility] Body height 2021-04-17 16:21:00 177.8 cm [facility] Body weight 2021-04-17 16:21:00 129.729 kg [facility] BMI 2021-04-17 16:21:00 41.04 kg/m2 [facility] Oxygen saturation in Arterial blood by Pulse oximetry 2021-04-17 16:21:00 99 /min General acute hospital Procedures Procedure Date / Time Performed Performing Clinicia n Source ASSIGNMENT OF BENEFITS 2022-07-26 15:32:01 Docto r Unassigned, [place] [facility] Encounters Start Date/Time End Date/Time Encounter Type Admission Type Attending [facility] Care Department Encounter ID Source 2025-01-25 13:47:15 2025-01-25 13:47:15 Outpatient SFA SFA [id number] Yusuf Lopez 2024-10-07 08:42:42 2024-10-07 08:42:42 Outpatient SFA SFA [id number] Yusuf Lopez 2023-04-09 10:58:33 2023-04-09 10:58:33 Outpatient SFA [id number] [id number] Yusuf Lopez 2022-07-27 00:00:00 2022-07-27 00:00:00 Letter (Out) Nida Franco [facility] [id number] 350.1.13.10 4.2.7.2.686 [id number] [facility] 2022-07-26 09:40:00 2022-07-26 09:59:32 Outpatient R VALERIY BRANHAM [facility] [id number] [facility] 2022-07-26 09:40:00 2022-07-26 09:59:32 Urgent Care Valeriy Branham, Attending [facility] 1..840.114 350.1.13.10 4.2.7.2.686 [id number] [facility] 2022-07-26 00:00:00 2022-07-26 00:00:00 Orders Only Doctor Unassigned, [place] [facility] 1..840.114 350.1.13.10 4.2.7.2.686 [id number] [facility] 2021-11-21 12:00:00 2021-11-21 12:20:00 Urgent Care [facility] 1..840.114 350.1.13.10 4.2.7.2.686 [id number] [facility] 2021-11-21 12:00:00 2021-11-21 12:00:00 Outpatient R ROSA BLAKE [facility] [id number] [facility] 2021-09-19 11:45:00 2021-09-19 12:05:00 Nurse Visit [facility]af[facility] Abby, Attending Valeriy Branham [facility] 1..840.114 350.1.13.10 4.2.7.2.686 [id number] [facility] 2021-09-19 12:20:00 2021-09-19 12:02:41 Outpatient R VALERIY BRANHAM [facility] [id number] [facility] 2021-07-28 11:40:00 2021-07-28 12:19:26 Outpatient R SHERLEY BLAKETANY [facility] [id number] [facility] 2021-07-28 11:40:00 2021-07-28 12:19:26 Urgent Care Shakira Rivera [facility] 1.84114 350.1.13.10 4.2.7.2.686 [id number] [facility] 2021-07-20 16:30:00 2021-07-20 16:45:00 Laboratory Only Only, Ang Db Test [facility] 1.84114 350.1.13.10 4.2.7.2.686 [id number] [facility] 2021-07-20 16:30:00 2021-07-20 16:30:00 Out[facility] [id number] [facility] 2021-04-17 11:30:00 2021-04-17 11:40:43 Outpatient R SHAKIRA MAJOR [facility] [id number] [facility] 2021-04-17 11:11:48 2021-04-17 11:26:48 [facility] 1.84.114 350.1.13.10 4.2.7.2.686 [id number] [facility] 2021-04-15 09:20:00 2021-04-15 09:29:38 Out[facility] [id number] 2021-04-15 09:10:16 2021-04-15 09:29:38 Urgent Care Lenheather [facility] Office Building 1.84114 350.1.13.10 4.2.7.2.686 [id number] [facility] 2021-04-15 00:00:00 2021-04-15 00:00:00 Patient Secure Msg Doctor Unassigned, [place] [facility] 1.114 350.1.13.10 4.2.7.2.686 [id number] [facility] 2021-04-15 00:00:00 2021-04-15 00:00:00 Telephone [facility] [id number] 350.1.13.10 4.2.7.2.686 [id number] [facility] 2021-03-13 10:20:00 2021-03-13 10:20:00 Outpatient ROSA BUTLER [facility] [id number] [facility] 2021-03-11 13:40:00 2021-03-11 13:40:00 Outpatient R HELENE WALKER [facility] [id number] [facility] 2021-03-06 08:15:00 2021-03-06 08:15:00 Outpatient SHAKIRA LEVY [facility] [id number] [facility] 2021-02-03 09:15:00 2021-02-03 09:15:00 Outpatient SHAKIRA LEVY [facility] [id number] [facility] 2021-02-02 11:30:00 2021-02-02 11:30:00 Outpatient SHAKIRA LEVY [facility] [id number] [facility] 2021-01-19 00:00:00 2021-01-19 00:00:00 Patient Secure Shakira Major [facility] ONE [id number] 350.1.13.10 4.2.7.2.686 [id number] [facility] 2021-01-06 13:30:00 2021-01-06 13:30:00 Outpatient SHAKIRA LEVY [facility] [id number] [facility]
[2025-03-01 08:37] LABS: Absolute Lymphocytes (CBC) 2.7 K/uL (0.7-4.9); Hematocrit 40.3 % (39.6-49.0); Hemoglobin 13.5 g/dL (13.6-17.9); MCH 26.8 pg (27.0-35.0); MCHC 33.4 g/dL (32.0-36.0); MCV 80.0 fL (80-100); MPV 8.6 fL (7.6-11.3); Nucleated RBC Absolute Count 0.0 (0-0); Nucleated Red Blood Cells % 0.1 % (0-0); RBC Red Blood Cell Count 5.04 M/uL (4.33-5.43); White Blood Count 12.00 thou/uL (4.3-10.9)
[2025-03-01 08:39] LABS: Urine Microscopic Reflex YN NO UMIC
[2025-03-01] MEDS ORDERED: ONDANSETRON 4 MG/2 ML VIAL ONE (08:41)
[2025-03-01] MEDS ORDERED: KETOROLAC 30 MG/ML INJ ONE (08:41)
[2025-03-01] MEDS ORDERED: FENTANYL CITR 100 MCG/2 ML ONE (08:42)
--- NOTE | 2025-03-01 08:42 | RAD REPORT ---
EXAMINATION: CT LUMBAR SPINE WITHOUT CONTRAST CLINICAL INDICATION: Radiculopathy/back pain TECHNIQUE: Axial CT images were obtained through the lumbar spine in soft tissue and bone windows wit hout intravenous contrast. Coronal and Sagittal reformatted images were created from the data set. One or more of the following dose reduction techniques were used: Automated exposure control, adjustm ent of the mA and/ or kV according to patient size, and/or iterative reconstruction. Unless otherwise specified, incidental findings do not require dedicated imaging follow-up. COMPARISON: 2023. FINDINGS: For purposes of this dictation, it is assumed that there are 5 non rib-bearing lumbar type vertebrae, and the most caudal fully segmented lumbar vertebra is labeled L5. 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 No acute fracture or dislocation seen Large left lateral disc herniation L3-4. Moderate right paracentral disc herniation L4-5 Mild spondylosis L5-S1 IMPRESSION: No acute fracture seen Large disc herniation L3-4 Moderate disc herniation L4-5 Nonemergent MRI is recommended
[2025-03-01] MEDS ORDERED: DIAZEPAM 5 MG TABLET ONE (08:44)
[2025-03-01] MEDS ORDERED: NA CHLORIDE 0.9% 1,000 ML ONE (08:44)
[2025-03-01 08:58] LABS: ALT/SGPT 41.0 U/L (16-61); AST/SGOT 18.0 U/L (15-37); Albumin 3.8 g/dL (3.4-5.0); Albumin/Globulin Ratio 1.0 (1.1-1.8); Alkaline Phosphatase 91.0 U/L (45-117); Anion Gap 10.4 mEq/L (5.0-15.0); BUN Blood Urea Nitrogen 8.0 mg/dL (7-18); Globulin 3.7 g/dL (2.3-3.5); Glucose Level 109.0 mg/dL (74-106); Potassium 4.4 mEq/L (3.5-5.1)
--- NOTE | 2025-03-01 10:55 | ER ---
Nurse's Notes [facility] Name: Salvador Fuchs Age: 35 yrs Sex: Male : 1990 Arrival Date: 03/01/2025 Time: 07:57 Bed 20 Private MD: Diagnosis: Low back pain;Muscle spasm of back;Intervertebral disc disorders with radiculopathy, lumbar region-LARGE L3-4, MODERATE L4-L5 Presentation: 03/01 08:09 Chief complaint: Patient states: Back pain since Saturday. Worse today when trying to ll1 work. EMS states: 20 R AC. Tylenol 1 GM IV given, Zofran 4 mg, IV and droperidol 2.5 MG IV given en route. Coronavirus screen: Client denies travel out of the [place] in the last 14 days. At this time, the client does not indicate any symptoms associated with coronavirus-19. Ebola Screen: Patient denies travel to an Ebola-affected area in the 21 days before illness onset. Initial Sepsis Screen: Does the patient meet any 2 criteria? No. Patient's initial sepsis screen is negative. Does the patient have a suspected source of infection? No. Patient's initial sepsis screen is negative. Risk Assessment: Do you want to hurt yourself or someone else? Patient reports no desire to harm self or others. Onset of symptoms was February 28, 2025. 08:09 Method Of Arrival: EMS: [place] [id number] 08:09 Acuity: KATHLEEN 3 ll1 Historical: - Allergies: 08:08 SEAFOOD; ll1 08:08 SHELLFISH; ll1 - PMHx: 08:08 Back pain; compound fracture to L1; ll1 - PSHx: 08:08 Appendectomy; Cholecystectomy; back surgery (Cholecystectomy); ll1 - Immunization history:: Adult Immunizations up to date. - Infectious Disease History:: Denies. - Social history:: Smoking status: Patient reports the use of cigarette tobacco products, smokes one-half pack cigarettes per day, Reported history of juuling and/or vaping. - Family history:: not pertinent. Screenin:14 [facility] ED Fall Risk Assessment (Adult) History of falling in the last 3 months, iw including since admission No falls in past 3 months (0 pts) Confusion or Disorientation No (0 pts) Intoxicated or Sedated No (0 pts) Impaired Gait No (0 pts) Mobility Assist Device Used No (0 pt) Altered Elimination No (0 pt) Score/Fall Risk Level 0 - 2 = Low Risk Oriented to surroundings, Maintained a safe environment. Abuse screen: Denies threats or abuse. Denies injuries from another. Nutritional screening: No deficits noted. Tuberculosis screening: No symptoms or risk factors identified. Assessment: 08:50 General: Appears uncomfortable, Behavior is cooperative. Pain: Complains of pain in iw lumbar area, left low back and right low back. Neuro: Level of Consciousness is awake, alert, obeys commands, Oriented to person, place, time, situation, Moves all extremities. Cardiovascular: Patient's skin is warm and dry. Respiratory: Respiratory effort is even, unlabored, Respiratory pattern is regular, symmetrical. Derm: Skin is intact, is healthy with good turgor. Musculoskeletal: Range of motion: intact in all extremities. 09:50 Reassessment: Patient is alert, oriented x 3, equal unlabored respirations, skin nh2 warm/dry/pink. Patient states feeling better. Patient states symptoms have improved. reports having a 2/10 pain level. 10:00 Reassessment: Dr. Trent notified of results and pt calling his ride,pt states he is iw ready to be discharged. Vital Signs: 08:09 BP 127 / 58; Pulse 70; Resp 17; Temp 97.9; Pulse Ox 98% on R/A; Weight 122.47 kg; ll1 Height 5 ft. 10 in. ; Pain 6/10; 09:01 BP 120 / 61; Pulse 63; Resp 16; Pulse Ox 97% on R/A; iw 10:01 BP 119 / 61; Pulse 66; Resp 16; Temp 98.3; Pulse Ox 100% on R/A; nh2 11:16 BP 119 / 64; Pulse 65; Resp 18; Temp 98(TE); Pulse Ox 100% on R/A; nh2 08:09 Body Mass Index 38.74 (122.47 kg, 177.8 cm) ll1 08:09 Pain Scale: Adult ll1 Marianela Coma Score: 10:48 Eye Response: spontaneous(4). Motor Response: obeys commands(6). Verbal Response: ely oriented(5). Total: 15. ED Course: 07:57 Patient arrived in ED. ely 07:58 Ethan Trent MD is Attending Physician. ely 08:07 Arm band placed on Patient placed in the treatment room, on a stretcher. ll1 08:11 Triage completed. ll1 08:14 Sweta Esparza, RN is Primary Nurse. iw 08:16 CT Lumbar Spine Wo Con In Process Unspecified. EDMS 08:59 Initial lab(s) drawn, by me, sent to lab. Maintain EMS IV. Dressing intact. Good blood iw return noted. Site clean \T\ dry. Gauge \T\ site: 20 RAC. Flushed with 10 mL NS. 09:15 Patient has correct armband on for positive identification. iw 09:25 Primary Nurse role handed off by Sweta Esparza RN nh2 09:25 Vivek Nj Jr, RN is Primary Nurse. nh2 10:37 Primary Nurse role handed off by Vivek Nj Jr, RN iw 10:37 Sweta Esparza RN is Primary Nurse. iw 10:53 Ariel Botello MD is Referral Physician. ely 11:12 No provider procedures requiring assistance completed. IV discontinued, intact, nh2 bleeding controlled, No redness/swelling at site. Pressure dressing applied. 11:13 Provided Education on: using call light when needing assistance. nh2 Administered Medications: 08:59 Drug: NS 0.9% IV 1000 ml IV at 1000 ml once; to be given as a bolus over 60 minutes iw Route: IV; Rate: 1000 ml; Site: right antecubital; 09:45 Follow up: Response: No adverse reaction; IV Status: Completed infusion; IV Intake: nh2 1000ml 09:45 Follow up: Response: No adverse reaction nh2 08:59 Drug: fentaNYL (PF) IVP 50 mcg IVP once Route: IVP; Site: right antecubital; iw 09:30 Follow up: Response: No adverse reaction; Pain is decreased nh2 08:59 Drug: Ondansetron IVP 4 mg IVP once; over 2 minutes Route: IVP; Site: right antecubital;iw 09:30 Follow up: Response: No adverse reaction nh2 08:59 Drug: Diazepam PO 10 mg PO once Route: PO; iw 09:30 Follow up: Response: No adverse reaction; Marked relief of symptoms nh2 08:59 Drug: Ketorolac IVP 30 mg IVP once Route: IVP; Site: right antecubital; iw 09:30 Follow up: Response: No adverse reaction; Pain is decreased nh2 08:59 Drug: Decadron - Dexamethasone IVP 10 mg IVP once Route: IVP; Site: right antecubital; 09:30 Follow up: Response: No adverse reaction; Pain is decreased nh2 Medication: 09:00 VIS not applicable for this client. nh2 Intake: 09:45 IV: 1000ml; Total: 1000ml. nh2 Outcome: 10:55 Discharge ordered by MD. graves 11:13 Discharged to home with friend, nh2 11:13 Condition: good 11:13 Discharge instructions given to patient, Instructed on discharge instructions, follow up and referral plans. medication usage, Demonstrated understanding of instructions, follow-up care, medications, Prescriptions given X 3, 11:18 Patient left the ED. nh2 Signatures: Dispatcher [employer] Ethan Mohamud MD MD cha Williams, Irene, RN RN iw Lewis, Lynsay, RN RN ll1 Vivek Nj Jr, RN RN nh2
--- NOTE | 2025-03-01 10:55 | EDPHYS ---
Physician Documentation [facility] Name: Salvador Fuchs Age: 35 yrs Sex: Male : 1990 Arrival Date: 03/01/2025 Time: 07:57 Bed 20 Private MD: BOBBI Physician Ethan Trent HPI: 03/01 10:48 This 35 yrs old Male presents to ER via EMS with complaints of Back Pain. ely 10:48 The patient presents with pain that is acute, that is chronic, with no known mechanism ely of injury, and decreased range of motion. The symptoms are located in the low back. Onset: The symptoms/episode began/occurred 1 week(s) ago. The pain radiates to the left low back and right low back. The pain does not radiate. Associated signs and symptoms: Pertinent positives: tingling, weakness. The problem was sustained from unknown cause. Modifying factors: The patient symptoms are alleviated by remaining still, the patient symptoms are aggravated by any movement, bending, lifting. Severity of symptoms: At their worst the symptoms were moderate, in the emergency department the symptoms are unchanged. The patient has experienced similar episodes in the past, multiple times. Historical: - Allergies: 08:08 SEAFOOD; ll1 08:08 SHELLFISH; ll1 - PMHx: 08:08 Back pain; compound fracture to L1; ll1 - PSHx: 08:08 Appendectomy; Cholecystectomy; back surgery (Cholecystectomy); ll1 - Immunization history:: Adult Immunizations up to date. - Infectious Disease History:: Denies. - Social history:: Smoking status: Patient reports the use of cigarette tobacco products, smokes one-half pack cigarettes per day, Reported history of juuling and/or vaping. - Family history:: not pertinent. ROS: 10:48 Constitutional: Negative for fever, chills, and weight loss, Eyes: Negative for injury, ely pain, redness, and discharge, ENT: Negative for injury, pain, and discharge, Neck: Negative for injury, pain, and swelling, Cardiovascular: Negative for chest pain, palpitations, and edema, Respiratory: Negative for shortness of breath, cough, wheezing, and pleuritic chest pain, Abdomen/GI: Negative for abdominal pain, nausea, vomiting, diarrhea, and constipation, : Negative for injury, bleeding, discharge, and swelling, MS/Extremity: Negative for injury and deformity, Skin: Negative for injury, rash, and discoloration, Neuro: Negative for headache, weakness, numbness, tingling, and seizure, Psych: Negative for depression, anxiety, suicide ideation, homicidal ideation, and hallucinations, Allergy/Immunology: Negative for hives, rash, and allergies, Endocrine: Negative for neck swelling, polydipsia, polyuria, polyphagia, and marked weight changes, Hematologic/Lymphatic: Negative for swollen nodes, abnormal bleeding, and unusual bruising, 10:48 Back: Positive for injury or acute deformity, decreased range of motion, pain at rest, flank pain, bilaterally, 10:48 MS/extremity: Positive for decreased range of motion, laceration, of the lumbar area, left low back and right low back, Exam: 10:48 Constitutional: This is a well developed, well nourished patient who is awake, alert, ely and in no acute distress. Head/Face: Normocephalic, atraumatic. Eyes: Pupils equal round and reactive to light, extra-ocular motions intact. Lids and lashes normal. Conjunctiva and sclera are non-icteric and not injected. Cornea within normal limits. Periorbital areas with no swelling, redness, or edema. ENT: Nares patent. No nasal discharge, no septal abnormalities noted. Tympanic membranes are normal and external auditory canals are clear. Oropharynx with no redness, swelling, or masses, exudates, or evidence of obstruction, uvula midline. Mucous membranes moist. Neck: Trachea midline, no thyromegaly or masses palpated, and no cervical lymphadenopathy. Supple, full range of motion without nuchal rigidity, or vertebral point tenderness. No Meningismus. Chest/axilla: Normal chest wall appearance and motion. Nontender with no deformity. No lesions are appreciated. Cardiovascular: Regular rate and rhythm with a normal S1 and S2. No gallops, murmurs, or rubs. Normal PMI, no JVD. No pulse deficits. Abdomen/GI: Soft, non-tender, with normal bowel sounds. No distension or tympany. No guarding or rebound. No evidence of tenderness throughout. Male : Normal genitalia with no discharge or lesions. Skin: Warm, dry with normal turgor. Normal color with no rashes, no lesions, and no evidence of cellulitis. MS/ Extremity: Pulses equal, no cyanosis. Neurovascular intact. Full, normal range of motion., bilateral aka Neuro: Awake and alert, GCS 15, oriented to person, place, time, and situation. Cranial nerves II-XII grossly intact. Motor strength 5/5 in all extremities. Sensory grossly intact. Cerebellar exam normal. Normal gait. Psych: Awake, alert, with orientation to person, place and time. Behavior, mood, and affect are within normal limits. 10:48 Back: pain, that is mild, that is moderate, ROM is painful, with all movement, normal spinal alignment noted, CVA tenderness, is absent, muscle spasm, is appreciated in the lumbar area, left low back, left mid back, right mid back and right low back, Vital Signs: 08:09 BP 127 / 58; Pulse 70; Resp 17; Temp 97.9; Pulse Ox 98% on R/A; Weight 122.47 kg; ll1 Height 5 ft. 10 in. ; Pain 6/10; 09:01 BP 120 / 61; Pulse 63; Resp 16; Pulse Ox 97% on R/A; iw 10:01 BP 119 / 61; Pulse 66; Resp 16; Temp 98.3; Pulse Ox 100% on R/A; nh2 11:16 BP 119 / 64; Pulse 65; Resp 18; Temp 98(TE); Pulse Ox 100% on R/A; nh2 08:09 Body Mass Index 38.74 (122.47 kg, 177.8 cm) ll1 08:09 Pain Scale: Adult ll1 [place] Coma Score: 10:48 Eye Response: spontaneous(4). Motor Response: obeys commands(6). Verbal Response: ely oriented(5). Total: 15. MDM: 07:57 Medical Screening Exam initiated ely 07:58 Medical Screening Exam initiated [facility] 03/01 08:00 Order name: CBC with Diff; Complete Time: 10:43 [facility] 03/01 08:00 Order name: CMP; Complete Time: 10:43 [facility] 03/01 08:00 Order name: UA Rfx Lul Cult if indicated; Complete Time: 10:43 [facility] 03/01 08:00 Order name: CT Lumbar Spine Wo Con; Complete Time: 10:43 [facility] Administered Medications: 08:59 Drug: NS 0.9% IV 1000 ml IV at 1000 ml once; to be given as a bolus over 60 minutes iw Route: IV; Rate: 1000 ml; Site: right antecubital; 09:45 Follow up: Response: No adverse reaction; IV Status: Completed infusion; IV Intake: nh2 1000ml 09:45 Follow up: Response: No adverse reaction nh2 08:59 Drug: fentaNYL (PF) IVP 50 mcg IVP once Route: IVP; Site: right antecubital; iw 09:30 Follow up: Response: No adverse reaction; Pain is decreased nh2 08:59 Drug: Ondansetron IVP 4 mg IVP once; over 2 minutes Route: IVP; Site: right antecubital;iw 09:30 Follow up: Response: No adverse reaction nh2 08:59 Drug: Diazepam PO 10 mg PO once Route: PO; iw 09:30 Follow up: Response: No adverse reaction; Marked relief of symptoms nh2 08:59 Drug: Ketorolac IVP 30 mg IVP once Route: IVP; Site: right antecubital; iw 09:30 Follow up: Response: No adverse reaction; Pain is decreased nh2 08:59 Drug: Decadron - Dexamethasone IVP 10 mg IVP once Route: IVP; Site: right antecubital; iw 09:30 Follow up: Response: No adverse reaction; Pain is decreased nh2 Disposition Summary: 03/01/25 10:55 Discharge Ordered Notes: Location: Home ely Problem: new ely Symptoms: have improved ely Condition: Stable ely Diagnosis - Low back pain ely - Muscle spasm of back ely - Intervertebral disc disorders with radiculopathy, lumbar region - LARGE L3-4, ely MODERATE L4-L5 Followup: ely - With: Private Physician - When: 2 - 3 days - Reason: Recheck today's complaints, Continuance of care, Re-evaluation by your physician Followup: ely - With: Ariel Botello MD - When: 2 - 3 days - Reason: Recheck today's complaints, Re-evaluation by your physician Discharge Instructions: - Discharge Summary Sheet ely - Acute Back Pain, Adult ely - Herniated Disk ely - Lumbosacral Radiculopathy ely - Musculoskeletal Pain ely - Degenerative Disk Disease ely - Chronic Back Pain, [id number] ely Forms: - Medication Reconciliation Form ely - Antibiotic Education ely - Prescription Opioid Use ely - Patient Portal Instructions ely - Leadership Thank You Letter ely - Work release form nh2 Prescriptions: - Diclofenac Sodium 75 mg Oral tablet, delayed release (enteric coated) - take 1 tablet ORAL route 2 times per day; 20 tablet; Refills: 0, Product ely Selection Permitted - methocarbamol 750 mg Oral tablet - take 2 tablets ORAL route 3 times per day; 36 tablet; Refills: 0, Product ely Selection Permitted - Tylenol-Codeine #3 300mg-30mg Oral tablet - take 2 tablets ORAL route every 6 hours As needed; 20 tablet; Refills: 0, [facility] Product Selection Permitted - Dexamethasone 4mg Oral tablet - take 1 tablet ORAL route daily for 4 days; 4 tablet; Refills: 0, Product ely Selection Permitted Signatures: Dispatcher [employer] Ethan Mohamud MD MD cha Williams, Irene RN Natasha Garcia RN RN ll1 Vivek Nj Jr, RN RN nh2
[2025-03-01 11:27] VITALS: O2SAT 100
[2025-03-01 11:28] VITALS: BP 119/64; TEMP 98
== END 2025-03-01 11:18 | disposition home or self-care (01) ==
LOC: ER 07:57
DX: M62.830 Muscle spasm of back (principal); M51.16 Intervertebral disc disorders with radiculopathy, lumbar region; F17.210 Nicotine dependence, cigarettes, uncomplicated
CPT/HCPCS: 96361; 85025; 36415; 81003; 80053; 72131; 96375; 96374; 99284; J3010; J1100; J2405; J7030